=== PATIENT | female | born 1935 | race Caucasian/White ===

== ENCOUNTER 2016-08-23 16:27 | Observation (INO) | payer MEDICARE, BC ==
[2016-08-23] MEDS ORDERED: ASPIRIN 81 MG CHEW PO STA (17:59)
[2016-08-23] MEDS ORDERED: NITROGLYCERIN OINT 1 INCH/GM PACKET TOPICAL STA (17:59)
[2016-08-23 18:27] LABS: Basophils % (A) 1 %; CH 31.8; CHCM 33.5; Eosinophils # (A) 0.1 k/uL (0-0.7); Eosinophils % (A) 3 %; HCT 40.5 % (34.0-46.0); HDW 2.21; HGB 13.8 gm/dL (11.4-16.0); Luc # (Auto) 0.13; Luc % (Auto) 4; Lymphocytes # (A) 1.1 k/uL (1.0-4.8); Lymphocytes % (A) 29 %; MCH 32.4 pg (25.0-35.0); MCHC 33.9 g/dL (31.0-37.0); MCV 95.5 fL (80.0-100.0); Mean Platelet Volume 6.6; Monocytes # (A) 0.2 k/uL (0-1.0); Monocytes % (A) 6 %; Neutrophils # (A) 2.2 k/uL (1.3-7.7); Neutrophils % (A) 58 %; RBC 4.25 m/uL (3.80-5.40); RDW 12.2 % (11.5-15.5); WBC 3.8 k/uL (3.8-10.6); WBC (Perox) 3.96
[2016-08-23 18:40] LABS: ALT 35 U/L (9-52); AST 20 U/L (14-36); Alkaline Phosphatase 70 U/L (38-126); Anion Gap 12 mmol/L; Blood Urea Nitrogen 19 mg/dL (7-17); Carbon Dioxide 26 mmol/L (22-30); Chloride 101 mmol/L (98-107); Glucose 85 mg/dL (74-99); Magnesium 1.9 mg/dL (1.6-2.3); Non-African American GFR(MDRD) >60 (>60 ml/min/1.73 sqM); Sodium 139 mmol/L (137-145); Total Bilirubin 0.9 mg/dL (0.2-1.3); Total Protein 7.8 g/dL (6.3-8.2)
[2016-08-23 18:42] LABS: Creatine Kinase 45 U/L (30-135)
--- NOTE | 2016-08-23 18:46 | XR ---
EXAMINATION TYPE: XR chest 2V DATE OF EXAM: 08/23/2016 6:34 PM COMPARISON: 12/13/2015 HISTORY: Chest pain TECHNIQUE: Frontal and lateral views of the chest are obtained. FINDINGS: Heart and mediastinum are normal. Lungs are clear. Costophrenic angles are clear. There ar e no hilar masses. There is no pleural effusion. There is a hiatal hernia. There are chest leads. IMPRESSION: No active cardiopulmonary disease. Hiatal hernia. No change compared to old exam.
[2016-08-23 18:47] LABS: INR 1.1 (<1.1); Prothrombin Time 10.6 sec (9.0-12.0)
[2016-08-23 18:48] LABS: Partial Thromboplastin Time 18.8 sec (22.0-30.0)
[2016-08-23 18:55] LABS: Creatine Kinase MB <0.2 ng/mL (0.0-2.4); Troponin I <0.012 ng/mL (0.000-0.034)
[2016-08-23] MEDS ORDERED: RX INFO: IV CONTRAST WAS GIVEN 1 EACH MISC MISCELLANE PRN (19:54)
--- NOTE | 2016-08-23 20:53 | ED ---
General Adult HPI - General Chief complaint: Recheck/Abnormal Lab/Rx Stated complaint: rib pain Time Seen by Provider: 08/23/16 17:43 Source: patient Mode of arrival: ambulatory - History of Present Illness Initial comments: Sided chest pain since 10:10 AM today, this is off-and-on pain comes on for a few seconds then it's it goes away denies any fall or any trauma no car accident she denies any shortness of breath denies any any pleuritic component to the chest pain. No nausea no vomiting no cold sweats area denies any fever no chills she is not coughing up any phlegm - Related Data Home Medications Medication Instructions Recorded Confirmed Pantoprazole Sodium [Protonix] 40 mg PO DAILY PRN 11/02/14 08/23/16 Lisinopril-Hctz 20-25 mg 1 tab PO DAILY 08/23/16 08/23/16 [Zestoretic 20-25] Allergies Allergy/AdvReac Type Severity Reaction Status Date / Time Sulfa (Sulfonamide Allergy Unknown Verified 08/23/16 17:47 Antibiotics) Review of Systems ROS Statement: Those systems with pertinent positive or pertinent negative responses have been documented in the HPI. ROS Other: All systems not noted in ROS Statement are negative. Past Medical History Past Medical History: Eye Disorder, GERD/Reflux, Hypertension Additional Past Medical History / Comment(s): ANDREW CATARACTS REMOVED.HIATAL HERNIA, INCONT OF URINE WEARS A PAD,ARTHRITIS,VARICOSE VEINS History of Any Multi-Drug Resistant Organisms: None Reported Past Surgical History: Adenoidectomy, Cholecystectomy, Hysterectomy, Tonsillectomy Additional Past Surgical History / Comment(s): EXC ANDREW CATARACTS. PARTIAL HYST- STILL HAS 1 OVARY.EGD Past Anesthesia/Blood Transfusion Reactions: No Reported Reaction Additional Past Anesthesia/Blood Transfusion Reaction / Comment(s): NEVER HAD HAD TRASFUSIONS Past Psychological History: No Psychological Hx Reported Smoking Status: Never smoker Past Alcohol Use History: None Reported Past Drug Use History: None Reported - Past Family History Father History Unknown: Yes General Exam - General Exam Comments Initial Comments: General: The patient is awake and alert, in no distress, and does not appear acutely ill. Skin: Skin is warm and dry and no rashes or lesions are noted. Eye: Pupils are equal, round and reactive to light, extra-ocular movements are intact; there is normal conjunctiva bilaterally. Ears, nose, mouth and throat: There are moist mucous membranes and no oral lesions. Neck: The neck is supple, there is no tenderness or JVD. Cardiovascular: There is a regular rate and rhythm. No murmur, rub or gallop is appreciated. Skin examination ruled out any shingles Respiratory: To auscultation bilateral, no wheezing no rhonchi no distress respiratory samaniego noticed Gastrointestinal: Soft, non-distended, non-tender abdomen without masses or organomegaly noted. There is no rebound or guarding present. Bowel sounds are unremarkable. Back: There is no tenderness to palpation in the midline. There is no obvious deformity. Musculoskeletal: Normal ROM, no tenderness, There is no pedal edema. There is no calf tenderness or swelling. No cords were appreciated. Neurological: CN II-XII intact, Cranial nerves III through XII are intact. There are no obvious motor or sensory deficits. Coordination appears grossly intact. Speech is normal. Psychiatric: Cooperative, appropriate mood & affect, normal judgment. Course Vital Signs 08/23/16 08/23/16 08/23/16 16:45 17:30 17:35 Temperature 97.1 F L Pulse Rate 73 Respiratory 16 Rate Blood Pressure 143/92 O2 Sat by Pulse 99 88 L 97 Oximetry 08/23/16 08/23/16 18:26 19:47 Temperature Pulse Rate 63 65 Respiratory 16 Rate Blood Pressure 163/72 119/58 O2 Sat by Pulse 100 93 L Oximetry EKG Findings - EKG Comments: EKG Findings:: EKG is normal sinus rhythm ventricular rate is 62 MT interval is 1 H2 QRS duration is 92 QT/QTc is 10/10/1929/436 review of this EKG reveals some T-wave flattening of the leads [address] elevation or ST depression noticed in the other leads Medical Decision Making - Lab Data Result diagrams: 08/23/16 18:20 08/23/16 18:20 Lab Results 08/23/16 08/23/16 08/23/16 Range/Units 18:20 18:20 18:20 WBC 3.8 (3.8-10.6) k/uL RBC 4.25 (3.80-5.40) m/uL Hgb 13.8 (11.4-16.0) gm/dL Hct 40.5 (34.0-46.0) % MCV 95.5 (80.0-100.0) fL MCH 32.4 (25.0-35.0) pg MCHC 33.9 (31.0-37.0) g/dL RDW 12.2 (11.5-15.5) % Plt Count 208 (150-450) k/uL Neutrophils % 58 % Lymphocytes % 29 % Monocytes % 6 % Eosinophils % 3 % Basophils % 1 % Neutrophils # 2.2 (1.3-7.7) k/uL Lymphocytes # 1.1 (1.0-4.8) k/uL Monocytes # 0.2 (0-1.0) k/uL Eosinophils # 0.1 (0-0.7) k/uL Basophils # 0.0 (0-0.2) k/uL PT (9.0-12.0) sec INR (<1.1) APTT (22.0-30.0) sec D-Dimer (<0.60) mg/L FEU Sodium 139 (137-145) mmol/L Potassium 4.0 (3.5-5.1) mmol/L Chloride 101 (98-107) mmol/L Carbon Dioxide 26 (22-30) mmol/L Anion Gap 12 mmol/L BUN 19 H (7-17) mg/dL Creatinine 0.78 (0.52-1.04) mg/dL Est GFR (MDRD) Af Amer >60 (>60 ml/min/1.73 sqM) Est GFR (MDRD) Non-Af >60 (>60 ml/min/1.73 sqM) Glucose 85 (74-99) mg/dL Calcium 10.0 (8.4-10.2) mg/dL Magnesium 1.9 (1.6-2.3) mg/dL Total Bilirubin 0.9 (0.2-1.3) mg/dL AST 20 (14-36) U/L ALT 35 (9-52) U/L Alkaline Phosphatase 70 (38-126) U/L Total Creatine Kinase 45 (30-135) U/L CK-MB (CK-2) <0.2 (0.0-2.4) ng/mL CK-MB (CK-2) Rel Index Troponin I <0.012 (0.000-0.034) ng/mL Total Protein 7.8 (6.3-8.2) g/dL Albumin 4.4 (3.5-5.0) g/dL 08/23/16 Range/Units 18:20 WBC (3.8-10.6) k/uL RBC (3.80-5.40) m/uL Hgb (11.4-16.0) gm/dL Hct (34.0-46.0) % MCV (80.0-100.0) fL MCH (25.0-35.0) pg MCHC (31.0-37.0) g/dL RDW (11.5-15.5) % Plt Count (150-450) k/uL Neutrophils % % Lymphocytes % % Monocytes % % Eosinophils % % Basophils % % Neutrophils # (1.3-7.7) k/uL Lymphocytes # (1.0-4.8) k/uL Monocytes # (0-1.0) k/uL Eosinophils # (0-0.7) k/uL Basophils # (0-0.2) k/uL PT 10.6 (9.0-12.0) sec INR 1.1 (<1.1) APTT 18.8 L (22.0-30.0) sec D-Dimer 0.62 H (<0.60) mg/L FEU Sodium (137-145) mmol/L Potassium (3.5-5.1) mmol/L Chloride (98-107) mmol/L Carbon Dioxide (22-30) mmol/L Anion Gap mmol/L BUN (7-17) mg/dL Creatinine (0.52-1.04) mg/dL Est GFR (MDRD) Af Amer (>60 ml/min/1.73 sqM) Est GFR (MDRD) Non-Af (>60 ml/min/1.73 sqM) Glucose (74-99) mg/dL Calcium (8.4-10.2) mg/dL Magnesium (1.6-2.3) mg/dL Total Bilirubin (0.2-1.3) mg/dL AST (14-36) U/L ALT (9-52) U/L Alkaline Phosphatase (38-126) U/L Total Creatine Kinase (30-135) U/L CK-MB (CK-2) (0.0-2.4) ng/mL CK-MB (CK-2) Rel Index Troponin I (0.000-0.034) ng/mL Total Protein (6.3-8.2) g/dL Albumin (3.5-5.0) g/dL Critical Care Time Total Critical Care Time: 35 Critical Care Time: She came to the chest pain on the left side this is first time ever she is 80 years old abrasion on she has multiple risk factors troponin and EKG chest x- ray and CT chest angiogram to rule out PE is pain-free but for the completeness sake I recommended that we keep her and consult cardiology tomorrow give her Lovenox 1 mg/kg subcu every 12 heparinize her and and consult cardiology I explained to her and her family and she agrees with him a she be admitted to Dr. Lovelace's service Disposition Clinical Impression: Chest pain, Hiatal hernia Disposition: ADMITTED IP TO THIS HOSP Condition: Good
--- NOTE | 2016-08-23 21:19 | CT ---
EXAMINATION TYPE: CT angio chest DATE OF EXAM: 08/23/2016 9:06 PM COMPARISON: NONE HISTORY: Left sided lower chest pain with fatigue CT DLP: 339.5 mGycm Automated exposure control for dose reduction was used. CONTRAST: CTA scan of the thorax is performed with IV Contrast, patient injected with 100 mL of Omnipaque 350, pulmonary embolism protocol. . There are 3-D post processed images. FINDINGS: The lungs are clear of infiltrate. There is no pleural effusion. There is a hiatal hernia. Heart is s lightly enlarged. There is no pericardial effusion. There is normal contrast opacification of the pulmonary arteries. There are no filling defects. Thora cic aorta shows no evidence of aneurysm or dissection. Thoracic aorta is atheromatous. The bony thora x is intact. IMPRESSION: NO EVIDENCE OF PULMONARY EMBOLISM. LARGE HIATAL HERNIA. CARDIOMEGALY.
[2016-08-23] MEDS ORDERED: MORPHINE SULFATE 2 MG/ML SYRINGE IVP PRN (22:33)
[2016-08-23] MEDS ORDERED: HEPARIN SODIUM,PORCINE 5,000 UNIT/ML 1 ML VIAL IV ONE (22:33)
[2016-08-23] MEDS ORDERED: NITROGLYCERIN SL TABS 0.4 MG TAB SUBLINGUAL PRN (22:33)
[2016-08-23] MEDS ORDERED: PANTOPRAZOLE 40 MG TABLET PO PRN (22:37)
[2016-08-23] MEDS ORDERED: HEPARIN SODIUM,PORCINE/D5W PMX 25,000 UNIT in DEXTROSE/WATER 1 500ML.BAG IV SCH (22:45)
[2016-08-24 01:02] LABS: Creatine Kinase 39 U/L (30-135)
[2016-08-24 01:15] LABS: Creatine Kinase MB 0.5 ng/mL (0.0-2.4); Troponin I <0.012 ng/mL (0.000-0.034)
[2016-08-24 05:26] VITALS: RESP 16
[2016-08-24 07:15] LABS: Cholesterol 183 mg/dL (<200); HDL Cholesterol 62 mg/dL (40-60); Triglycerides 86 mg/dL (<150)
[2016-08-24 07:42] LABS: Creatine Kinase 56 U/L (30-135)
[2016-08-24 07:54] LABS: Creatine Kinase MB 0.7 ng/mL (0.0-2.4); Troponin I <0.012 ng/mL (0.000-0.034)
[2016-08-24 08:02] VITALS: TEMP 97.8
--- NOTE | 2016-08-24 08:50 | P.CRDCN ---
History of Present Illness Consult date: 08/24/16 History of present illness: This is a pleasant 80-year-old female patient with a past medical history significant for hypertension who is in good shape for her age and without any other comorbidities, presented to the emergency room complaining of chest discomfort. She was sitting in the [employer] yesterday when suddenly started experiencing chest discomfort, at 1 small spot on the left side of the chest, without any radiation to the arm or neck or shoulders and without any associated symptoms of shortness of breath, dizziness or lightheadedness, or sweating. That episode of chest discomfort lasted for only 3 seconds and since then she has been experiencing intermittent episodes of chest discomfort with same nature and each one lasts only for a few seconds. The cardiac workup of EKG and enzymes came in to be unremarkable. The patient is not aware of any history of coronary artery disease and never seen any head housekeeper in the past. I recommended to get the patient up and around. If she is asymptomatic she can be discharged home. Past Medical History Past Medical History: Eye Disorder, GERD/Reflux, Hypertension Additional Past Medical History / Comment(s): ANDREW CATARACTS REMOVED.HIATAL HERNIA, INCONT OF URINE WEARS A PAD,ARTHRITIS,VARICOSE VEINS History of Any Multi-Drug Resistant Organisms: None Reported Past Surgical History: Adenoidectomy, Cholecystectomy, Hysterectomy, Tonsillectomy Additional Past Surgical History / Comment(s): EXC ANDREW CATARACTS. PARTIAL HYST- STILL HAS 1 OVARY.EGD Past Anesthesia/Blood Transfusion Reactions: No Reported Reaction Additional Past Anesthesia/Blood Transfusion Reaction / Comment(s): NEVER HAD HAD TRASFUSIONS Past Psychological History: No Psychological Hx Reported Smoking Status: Never smoker Past Alcohol Use History: None Reported Past Drug Use History: None Reported - Past Family History Father History Unknown: Yes Family Medical History: Cancer Mother Additional Family Medical History / Comment(s): mother was in good health and dies at 93 Brother(s) Additional Family Medical History / Comment(s): kidney removal Daughter(s) Family Medical History: No Reported History Son(s) Family Medical History: Asthma, Sleep Apnea/CPAP/BIPAP Medications and Allergies Home Medications Medication Instructions Recorded Confirmed Type Pantoprazole Sodium [Protonix] 40 mg PO DAILY PRN 11/02/14 08/23/16 History Lisinopril-Hctz 20-25 mg 1 tab PO DAILY 08/23/16 08/23/16 History [Zestoretic 20-25] Allergies Allergy/AdvReac Type Severity Reaction Status Date / Time Sulfa (Sulfonamide Allergy Unknown Verified 08/23/16 17:47 Antibiotics) Physical Exam Vitals: Vital Signs Temp Pulse Pulse Pulse Pulse Resp BP 08/24/16 07:59 97.8 F 60 16 08/24/16 04:00 98 F 60 60 16 08/24/16 00:00 97.6 F 60 18 08/23/16 23:00 69 16 145/64 BP BP Pulse Ox 08/24/16 07:59 118/58 96 08/24/16 04:00 121/58 96 08/24/16 00:00 126/68 98 08/23/16 23:00 99 Intake and Output 08/23/16 08/24/16 08/24/16 22:59 06:59 14:59 Other: Voiding Method Toilet Incontinent Weight 81.647 kg - Constitutional General appearance: no acute distress - Respiratory Respiratory: bilateral: CTA - Cardiovascular Rhythm: regular Heart sounds: normal: S1, S2 Results 08/23/16 18:20 08/23/16 18:20 Cardiac Enzymes 08/24/16 08/24/16 Range/Units 00:22 06:30 CK-MB (CK-2) 0.5 0.7 (0.0-2.4) ng/mL Troponin I <0.012 <0.012 (0.000-0.034) ng/mL Coagulation 08/24/16 Range/Units 06:30 APTT 52.4 H (22.0-30.0) sec Lipids 08/24/16 Range/Units 06:30 Triglycerides 86 (<150) mg/dL Cholesterol 183 (<200) mg/dL HDL Cholesterol 62 H (40-60) mg/dL Current Medications Generic Name Dose Route Start Last Admin Trade Name Freq PRN Reason Stop Dose Admin Aspirin 325 mg 08/24/16 09:00 Aspirin PO DAILY [facility] Lisinopril/HCTZ 1 each 08/24/16 09:00 Zestoretic 20-25 PO DAILY [facility] Heparin Sodium/Dextrose 25,000 500 mls @ 19.59 mls/hr 08/23/16 22:45 23:05 unit/ IV Solution IV 12 units/kg/hr .Q24H DIONICIO 19.59 mls/hr Protocol Administration 12 UNITS/KG/HR Miscellaneous Information 1 each 08/23/16 19:54 Rx Info: Iv Contrast Was Given MISCELLANE 08/25/16 19:54 DAILY PRN Per Protocol Morphine Sulfate 2 mg 08/23/16 22:33 Morphine Sulfate (Inj) IVP Q5M PRN Chest Pain Nitroglycerin 0.4 mg 08/23/16 22:33 Nitrostat SUBLINGUAL Q5M PRN Chest Pain Pantoprazole Sodium 40 mg 08/23/16 22:37 Protonix PO DAILY PRN Heartburn Intake and Output 08/23/16 08/24/16 08/24/16 22:59 06:59 14:59 Other: Voiding Method Toilet Incontinent Weight 81.647 kg Assessment and Plan Plan: Assessment #1 atypical chest discomfort #2 systemic hypertension Plan #1 getting the patient up and around #2 the patient can be discharged home
[2016-08-24] MEDS ORDERED: LISINOPRIL-HCTZ 20-25 MG 1 EACH TAB PO SCH (09:00)
[2016-08-24] MEDS ORDERED: ASPIRIN 325 MG TAB PO SCH (09:00)
[2016-08-24 11:43] VITALS: BP 143/52; PULSE 60
--- NOTE | 2016-08-24 12:45 | P.HPIM ---
History of Present Illness H&P Date: 08/24/16 Chief Complaint: Chest pain This is a 80-year-old female with a known past medical history of hypertension and GERD. Patient reports she was at [employer] and started having some pains on the left sided her ribs. Pains were persistent off-and-on throughout the day. They're very sharp pains and major catch her breath. She denies any shortness of breath. She denies any cough with any fevers chills or sweats. Denies any heartburn asked reflux and any heavy lifting. She denies any nausea or vomiting. Denies any bowel movement changes or urinary symptoms. Denies any fevers chills or sweats. She was seen evaluated by cardiology they have ordered a cleared her for discharge we'll follow-up with her in the outpatient setting troponins were negative 3 sets chest x-ray showed no acute changes and EKG had showed a normal sinus rhythm. Patient's CTA of the chest that showed no evidence of pulmonary embolism. Did reveal a large hiatal hernia and cardiomegaly. Patient does report she is on Protonix. Her acid reflux like symptoms had shown improvement and she was taught trying to taper off the PPI. Review of Systems Please refer to HPI otherwise unremarkable Past Medical History Past Medical History: Eye Disorder, GERD/Reflux, Hypertension Additional Past Medical History / Comment(s): ANDREW CATARACTS REMOVED.HIATAL HERNIA, INCONT OF URINE WEARS A PAD,ARTHRITIS,VARICOSE VEINS History of Any Multi-Drug Resistant Organisms: None Reported Past Surgical History: Adenoidectomy, Cholecystectomy, Hysterectomy, Tonsillectomy Additional Past Surgical History / Comment(s): EXC ANDREW CATARACTS. PARTIAL HYST- STILL HAS 1 OVARY.EGD Past Anesthesia/Blood Transfusion Reactions: No Reported Reaction Additional Past Anesthesia/Blood Transfusion Reaction / Comment(s): NEVER HAD HAD TRASFUSIONS Past Psychological History: No Psychological Hx Reported Smoking Status: Never smoker Past Alcohol Use History: None Reported Past Drug Use History: None Reported - Past Family History Father History Unknown: Yes Family Medical History: Cancer Mother Additional Family Medical History / Comment(s): mother was in good health and dies at 93 Brother(s) Additional Family Medical History / Comment(s): kidney removal Daughter(s) Family Medical History: No Reported History Son(s) Family Medical History: Asthma, Sleep Apnea/CPAP/BIPAP Medications and Allergies Home Medications Medication Instructions Recorded Confirmed Type Pantoprazole Sodium [Protonix] 40 mg PO DAILY PRN 11/02/14 08/23/16 History Lisinopril-Hctz 20-25 mg 1 tab PO DAILY 08/23/16 08/23/16 History [Zestoretic 20-25] Allergies Allergy/AdvReac Type Severity Reaction Status Date / Time Sulfa (Sulfonamide Allergy Unknown Verified 08/23/16 17:47 Antibiotics) Physical Exam Vitals: Vital Signs Temp Pulse Pulse Pulse Pulse Resp BP 08/24/16 11:42 97.8 F 60 16 08/24/16 08:00 72 16 08/24/16 07:59 97.8 F 60 16 08/24/16 04:00 98 F 60 60 16 08/24/16 00:00 97.6 F 60 18 08/23/16 23:00 69 16 145/64 BP BP Pulse Ox 08/24/16 11:42 143/52 96 08/24/16 08:00 08/24/16 07:59 118/58 96 08/24/16 04:00 121/58 96 08/24/16 00:00 126/68 98 08/23/16 23:00 99 Intake and Output 08/23/16 08/24/16 08/24/16 22:59 06:59 14:59 Other: Voiding Method Toilet Toilet Incontinent # Voids 1 Weight 81.647 kg Head normocephalic Neck supple Lungs clear to auscultation bilaterally no wheezing or crackles Heart regular rate and rhythm S1-S2, no rub or gallop Abdomen is soft nontender nondistended positive bowel sounds no hepatosplenomegaly Extremities no edema Neuro alert and orientated to 3 Results CBC & Chem 7: 08/23/16 18:20 08/23/16 18:20 Labs: Abnormal Lab Results - Last 24 Hours (Table) 08/24/16 08/24/16 Range/Units 06:30 06:30 APTT 52.4 H (22.0-30.0) sec LDL Cholesterol, Calc 104 H (0-99) mg/dL HDL Cholesterol 62 H (40-60) mg/dL Thrombosis Risk Factor Assmnt - Choose All That Apply Any of the Below Risk Factors Present?: Yes Each Factor Represents 1 point: Obesity (BMI >25) Other Risk Factors: Yes Each Risk Factor Represents 3 Points: Age 75 years or older Other congenital or acquired thrombophilia - If yes, enter type in comment: No Thrombosis Risk Factor Assessment Total Risk Factor Score: 4 Thrombosis Risk Factor Assessment Level: Moderate Risk Assessment and Plan Plan: 1. Atypical chest pain: Troponins negative 3 sets. EKG showing a normal sinus rhythm. Chest x-ray shows no acute changes. CTA was negative for a pulmonary embolism did show a large hiatal hernia and cardiomegaly. Patient was seen evaluated by cardiology and they have cleared her for discharge we'll follow-up with her in the outpatient setting 2. Known history of GERD and hiatal hernia. Last EGD was about 2 years ago and patient reports no cigarette findings 3. Essential hypertension continue with her blood pressure pills Anticipate discharge later this afternoon if tolerating diet and getting up and ambulating Time with Patient: Greater than 30 (Greater than 50% of the total time spent in counseling and coordination of care.I performed an examination of the patient and discussed their management with the physician Director Of Rooms. I have reviewed the Physician Director Of Rooms's notes and agree with the documented findings and plan of care)
--- NOTE | 2016-08-24 14:07 | P.DS ---
Providers Date of admission: 08/23/16 22:33 Expected date of discharge: 08/24/16 Attending physician: Anita Lovelace Consults: Dr. Bauman Primary care physician: Jill Archibald Hospital Course: Discharge diagnosis 1. Atypical chest pain: Troponins negative 3 sets. EKG showing a normal sinus rhythm. Chest x-ray shows no acute changes. CTA was negative for a pulmonary embolism did show a large hiatal hernia and cardiomegaly. Patient was seen evaluated by cardiology and they have cleared her for discharge we'll follow-up with her in the outpatient setting 2. Known history of GERD and hiatal hernia. Last EGD was about 2 years ago and patient reports no cigarette findings 3. Essential hypertension continue with her blood pressure pills Hospital course This is a 80-year-old female with a known past medical history of hypertension and GERD. Patient reports she was at [employer] and started having some pains on the left sided her ribs. Pains were persistent off-and-on throughout the day. They're very sharp pains and major catch her breath. She denies any shortness of breath. She denies any cough with any fevers chills or sweats. Denies any heartburn asked reflux and any heavy lifting. She denies any nausea or vomiting. Denies any bowel movement changes or urinary symptoms. Denies any fevers chills or sweats. She was seen evaluated by cardiology they have ordered a cleared her for discharge we'll follow-up with her in the outpatient setting troponins were negative 3 sets chest x-ray showed no acute changes and EKG had showed a normal sinus rhythm. Patient's CTA of the chest that showed no evidence of pulmonary embolism. Did reveal a large hiatal hernia and cardiomegaly. Patient does report she is on Protonix. Patient's symptoms resolved. She tolerated diet and has been up and ambulating without any symptoms. Cardiology had cleared her for discharge. They will follow up with her in the office in 2 weeks. UT was ruled out during this hospitalization. Please refer to chart for any further details. Patient Condition at Discharge: Stable Plan - Discharge Summary Discharge Medication List Pantoprazole Sodium [Protonix] 40 mg PO DAILY PRN 11/02/14 [History] Lisinopril-Hctz 20-25 mg [Zestoretic 20-25] 1 tab PO DAILY 08/23/16 [History] Follow up Appointment(s)/Referral(s): Hans Og MD [STAFF PHYSICIAN] - 2 Weeks (September 07, 3:45) Jill Archibald DO [Primary Care Provider] - 1 Week Patient Instructions/Handouts: Chest Pain (GEN) Activity/Diet/Wound Care/Special Instructions: low fat/low salt diet activity as tolerated Discharge Disposition: HOME SELF-CARE
== END 2016-08-24 14:31 | disposition home or self-care (01) ==
LOC: EC 16:27 → 3OBS 22:33
PROVIDERS: ADMIT Internal Medicine; ATTEND Internal Medicine
DX: R07.81 Pleurodynia (principal); I51.7 Cardiomegaly; K21.9 Gastro-esophageal reflux disease without esophagitis; K44.9 Diaphragmatic hernia without obstruction or gangrene; I10 Essential (primary) hypertension; R32 Unspecified urinary incontinence; M19.90 Unspecified osteoarthritis, unspecified site; Z79.899 Other long term (current) drug therapy; Z88.2 Allergy status to sulfonamides
CPT/HCPCS: 99291 ×2; 96365; 96376 ×2; 36415; 93005; 85379; 80061; 80053; 82550 ×2; 82553 ×2; 83735; 84484 ×2; 85025; 85610; 85730 ×2; 71020; 71275; G0378 ×2; J1644 ×2; Q9967; 96366

== ENCOUNTER → 2017-01-26 | Outpatient (CLI) | payer MEDICARE, BC ==
--- NOTE | 2017-01-26 16:29 | US ---
EXAMINATION TYPE: US venous doppler duplex LE RT DATE OF EXAM: 01/26/2017 2:21 PM COMPARISON: NONE CLINICAL HISTORY: Pain in leg M79.606. SIDE PERFORMED: Right TECHNIQUE: The lower extremity deep venous system is examined utilizing real time linear array sonog keegan with graded compression, doppler sonography and color-flow sonography. VESSELS IMAGED: External Iliac Vein (EIV) Common Femoral Vein Deep Femoral Vein Greater Saphenous Vein * Femoral Vein Popliteal Vein Proximal Calf Veins (* superficial vessels) scanned area of concern, right inner knee into lower leg, red area. There is thrombosed superficial v essels that are not compressible and show no flow. Right Leg: Negative for DVT No popliteal fossa lesion was seen. IMPRESSION: 1. THIS EXAMINATION IS NEGATIVE FOR DVT WITHIN THE RIGHT LEG. 2. THIS EXAMINATION IS POSITIVE FOR SUPERFICIAL THROMBOPHLEBITIS.
== END | disposition home or self-care (01) ==
LOC: RADUSWWP 14:17
PROVIDERS: ATTEND Family Medicine
DX: I80.01 Phlebitis and thrombophlebitis of superficial vessels of right lower extremity (principal)

== ENCOUNTER 2019-08-19 17:41 | Inpatient (IN) | payer MEDICARE, BC ==
[2019-08-19] MEDS ORDERED: SODIUM CHLORIDE 0.9% 1,000 ML IV STA ×3 (18:03→20:32)
--- NOTE | 2019-08-19 18:09 | ED ---
Nausea/Vomiting/Diarrhea HPI - General Chief complaint: Nausea/Vomiting/Diarrhea Stated complaint: Dehydration Time Seen by Provider: 08/19/19 17:46 Source: patient, EMS, RN notes reviewed Mode of arrival: EMS Limitations: no limitations - History of Present Illness Initial comments: This 83-year-old female who presents with the onset of nausea vomiting diarrhea at about 1:00 this morning and having persistent diarrhea since that she feels very weak and tired she is noted have a blood pressure 81/67 upon arrival here. No overt fevers chills sweats chest pain or other symptoms MD complaint: nausea, vomiting, diarrhea, other - Related Data Home Medications Medication Instructions Recorded Confirmed Pantoprazole Sodium [Protonix] 40 mg PO DAILY PRN 11/02/14 08/23/16 Lisinopril-Hctz 20-25 mg 1 tab PO DAILY 08/23/16 08/23/16 [Zestoretic 20-25] Allergies Allergy/AdvReac Type Severity Reaction Status Date / Time Sulfa (Sulfonamide Allergy Unknown Verified 08/19/19 17:48 Antibiotics) Review of Systems ROS Statement: Those systems with pertinent positive or pertinent negative responses have been documented in the HPI. ROS Other: All systems not noted in ROS Statement are negative. Past Medical History Past Medical History: Atrial Fibrillation, Eye Disorder, GERD/Reflux, Hypertension Additional Past Medical History / Comment(s): ANDREW CATARACTS REMOVED.HIATAL HERNIA, INCONT OF URINE WEARS A PAD,ARTHRITIS,VARICOSE VEINS History of Any Multi-Drug Resistant Organisms: None Reported Past Surgical History: Adenoidectomy, Cholecystectomy, Hysterectomy, Tonsillectomy Additional Past Surgical History / Comment(s): EXC ANDREW CATARACTS. PARTIAL HYST- STILL HAS 1 OVARY.EGD Past Anesthesia/Blood Transfusion Reactions: No Reported Reaction Additional Past Anesthesia/Blood Transfusion Reaction / Comment(s): NEVER HAD HAD TRASFUSIONS Past Psychological History: No Psychological Hx Reported Smoking Status: Never smoker Past Alcohol Use History: None Reported Past Drug Use History: None Reported - Past Family History Father History Unknown: Yes Family Medical History: Cancer Mother Additional Family Medical History / Comment(s): mother was in good health and dies at 93 Brother(s) Additional Family Medical History / Comment(s): kidney removal Daughter(s) Family Medical History: No Reported History Son(s) Family Medical History: Asthma, Sleep Apnea/CPAP/BIPAP General Exam - General Exam Comments Initial Comments: Is a well-developed sec appearing female who is awake alert but somewhat lethargic she is oriented x3 Limitations: no limitations General appearance: alert, in no apparent distress Head exam: Present: atraumatic, normocephalic, normal inspection Eye exam: Present: normal appearance, PERRL, EOMI. Absent: scleral icterus, conjunctival injection, periorbital swelling ENT exam: Present: mucous membranes dry Neck exam: Present: normal inspection. Absent: tenderness, meningismus, lymphadenopathy Respiratory exam: Present: normal lung sounds bilaterally. Absent: respiratory distress, wheezes, rales, rhonchi, stridor Cardiovascular Exam: Present: regular rate, normal rhythm, normal heart sounds. Absent: systolic murmur, diastolic murmur, rubs, gallop, clicks GI/Abdominal exam: Present: soft, normal bowel sounds. Absent: distended, tenderness, guarding, rebound, rigid Extremities exam: Present: normal inspection, full ROM, normal capillary refill. Absent: tenderness, pedal edema, joint swelling, calf tenderness Back exam: Present: normal inspection Neurological exam: Present: alert, oriented X3, CN II-XII intact Psychiatric exam: Present: normal affect, normal mood Skin exam: Present: warm, dry, intact, normal color. Absent: rash Course Vital Signs 08/19/19 08/19/19 08/19/19 17:44 19:11 20:00 Temperature 98.3 F Pulse Rate 100 Respiratory 16 16 16 Rate Blood Pressure 75/62 73/49 85/40 O2 Sat by Pulse 96 Oximetry - Reevaluation(s) Reevaluation #1: 08/19/19 20:52 Evaluation patient reveals a resting comfortably lower blood pressure has remained somewhat low. She is getting IV fluids Medical Decision Making - Medical Decision Making I did discuss findings with the patient family member who is present. Patient does present with gastrointestinal pathology in addition to dehydration acute kidney injury and evidence of UTI. Patient will be placed on IV fluids and IV antibiotics I did discuss case Dr. Trevino's group patient will be admitted - Lab Data Result diagrams: 08/19/19 18:12 08/19/19 18:12 Lab Results 08/19/19 08/19/19 08/19/19 Range/Units 18:12 18:12 19:00 WBC 17.5 H (3.8-10.6) k/uL RBC 3.86 (3.80-5.40) m/uL Hgb 12.5 (11.4-16.0) gm/dL Hct 37.5 (34.0-46.0) % MCV 97.0 (80.0-100.0) fL MCH 32.3 (25.0-35.0) pg MCHC 33.3 (31.0-37.0) g/dL RDW 12.2 (11.5-15.5) % Plt Count 152 (150-450) k/uL Neutrophils % (Manual) 80 % Band Neutrophils % 14 % Lymphocytes % (Manual) 3 % Metamyelocytes % 4 % Neutrophils # (Manual) 16.40 H (1.3-7.7) k/uL Lymphocytes # (Manual) 0.53 L (1.0-4.8) k/uL Metamyelocytes # (Man) 0.70 H (0) k/uL Nucleated RBCs 0 (0-0) /100 WBC Manual Slide Review Performed Toxic Vacuolation Present RBC Morphology Normal Sodium 135 L (137-145) mmol/L Potassium 3.7 (3.5-5.1) mmol/L Chloride 102 (98-107) mmol/L Carbon Dioxide 20 L (22-30) mmol/L Anion Gap 13 mmol/L BUN 37 H (7-17) mg/dL Creatinine 1.88 H (0.52-1.04) mg/dL Est GFR (CKD-EPI)AfAm 28 (>60 ml/min/1.73 sqM) Est GFR (CKD-EPI)NonAf 24 (>60 ml/min/1.73 sqM) Glucose 84 (74-99) mg/dL Calcium 9.1 (8.4-10.2) mg/dL Magnesium 1.6 (1.6-2.3) mg/dL Total Bilirubin 1.0 (0.2-1.3) mg/dL AST 48 H (14-36) U/L ALT 19 (4-34) U/L Alkaline Phosphatase 70 (38-126) U/L Total Protein 6.7 (6.3-8.2) g/dL Albumin 3.5 (3.5-5.0) g/dL Lipase 47 (23-300) U/L Urine Color Yellow Urine Appearance Cloudy H (Clear) Urine pH 6.0 (5.0-8.0) Ur Specific Edison 1.011 (1.001-1.035) Urine Protein 1+ H (Negative) Urine Glucose (UA) Negative (Negative) Urine Ketones Negative (Negative) Urine Blood Moderate H (Negative) Urine Nitrite Negative (Negative) Urine Bilirubin Negative (Negative) Urine Urobilinogen <2.0 (<2.0) mg/dL Ur Leukocyte Esterase Large H (Negative) Urine RBC 11 H (0-5) /hpf Urine WBC 84 H (0-5) /hpf Urine WBC Clumps Few H (None) /hpf Ur Squamous Epith Cells 3 (0-4) /hpf Amorphous Sediment Few H (None) /hpf Urine Bacteria Moderate H (None) /hpf Hyaline Casts 6 H (0-2) /lpf Urine Mucus Occasional H (None) /hpf - EKG Data -: EKG Interpreted by Me (Atrial fibrillation rate 95 QRS 84 QT since QTC 324/407) - Radiology Data Radiology results: report reviewed (I did review the imaging and report no acute findings.), image reviewed Critical Care Time Critical Care Time: Yes Critical Care Time: 35 minutes critical care time which includes initial presentation with history physical labs x-rays several reevaluation the patient response to therapy discussed with patient family regarding findings discussed with the main physici an review of old charting was available admission orders and documentation of the above Disposition Clinical Impression: Gastroenteritis, Acute kidney injury, Dehydration, Urinary tract infection, Hypotensive episode Disposition: ADMITTED IP TO THIS [facility] Condition: Fair Referrals: Jill Archibald DO [Primary Care Provider] - 1-2 days
[2019-08-19 18:25] LABS: HCT 37.5 % (34.0-46.0); HGB 12.5 gm/dL (11.4-16.0); MCH 32.3 pg (25.0-35.0); MCHC 33.3 g/dL (31.0-37.0); Mean Platelet Volume 8.1; Platelet Count 152 k/uL (150-450); RBC 3.86 m/uL (3.80-5.40); RDW 12.2 % (11.5-15.5); WBC 17.5 k/uL (3.8-10.6)
[2019-08-19 18:37] LABS: Albumin 3.5 g/dL (3.5-5.0); Calcium 9.1 mg/dL (8.4-10.2); Magnesium 1.6 mg/dL (1.6-2.3); Potassium 3.7 mmol/L (3.5-5.1); Total Protein 6.7 g/dL (6.3-8.2)
[2019-08-19 18:55] LABS: Band Neutrophils % 14 %; Lymphocytes # (M) 0.53 k/uL (1.0-4.8); Metamyelocytes % 4 %; Neutrophils % (M) 80 %; Nucleated Red Blood Cells 0 /100 WBC (0-0); Total Cells Counted 200; Toxic Vacuolation Present
--- NOTE | 2019-08-19 18:57 | XR ---
EXAMINATION TYPE: XR KUB DATE OF EXAM: 08/19/2019 COMPARISON: NONE HISTORY: Pain TECHNIQUE: Single view supine FINDINGS: Bowel gas pattern is normal. There is no sign of intestinal obstruction or pneumoperitoneum . Fecal pattern is normal. There are large calcifications over the lower pole left kidney. There is s mall calcification over lower pole right kidney. There are numerous phleboliths in the pelvis. There is thoracolumbar levoscoliosis. IMPRESSION: Nonacute abdomen. Multiple renal calculi mainly on the left side.
[2019-08-19 19:53] LABS: Amorphous Sediment,Urine Few /hpf; Appearance,Urine Cloudy (Clear); Bacteria,Urine Moderate /hpf; Bilirubin,Urine Negative (Negative); Blood,Urine Moderate (Negative); Color,Urine Yellow; Glucose,Urine (UA) Negative (Negative); Hyaline Casts,Urine 6 /lpf (0-2); Ketones,Urine Negative (Negative); Leukocyte Esterase,Urine Large (Negative); Mucus,Urine Occasional /hpf; Nitrite,Urine Negative (Negative); Protein,Urine 1+ (Negative); RBC,Urine 11 /hpf (0-5); Specific Gravity,Urine 1.011 (1.001-1.035); Squamous Epithelial Cell,Urine 3 /hpf (0-4); Urobilinogen,Urine <2.0 mg/dL (<2.0); WBC,Urine 84 /hpf (0-5)
[2019-08-19] MEDS ORDERED: SODIUM CHLORIDE 0.9% 500 ML 500 ML IV ONE (20:06)
[2019-08-19] MEDS ORDERED: cefTRIAXone IN SWFI 1,000 MG/10 ML SYRINGE IVP STA (20:29)
[2019-08-19] MEDS ORDERED: ACETAMINOPHEN TAB 325 MG TAB PO PRN (20:55)
[2019-08-19] MEDS ORDERED: NALOXONE 0.4 MG/ML 1 ML VIAL IV PRN (20:55)
[2019-08-19] MEDS ORDERED: ONDANSETRON 4 MG/2 ML VIAL IVP PRN (20:57)
[2019-08-19] MEDS: SODIUM CHLORIDE 0.9% 1,000 ML IV SCH (22:48)
[2019-08-20] MEDS: PANTOPRAZOLE 40 MG/10 ML VIAL IV SCH (08:13)
[2019-08-20] MEDS: SODIUM CHLORIDE 0.9% 1,000 ML IV SCH ×2 (08:14→17:11)
[2019-08-20 11:49] LABS: Calcium 7.9 mg/dL (8.4-10.2); Potassium 4.2 mmol/L (3.5-5.1)
[2019-08-20 13:22] LABS: HCT 36.2 % (34.0-46.0); HGB 11.8 gm/dL (11.4-16.0); Hypochromasia Slight; MCH 32.6 pg (25.0-35.0); MCHC 32.6 g/dL (31.0-37.0); MCV 100.1 fL (80.0-100.0); Mean Platelet Volume 9.6; Platelet Count 111 k/uL (150-450); RBC 3.62 m/uL (3.80-5.40); RDW 12.1 % (11.5-15.5); WBC 17.1 k/uL (3.8-10.6)
[2019-08-20 14:50] LABS: Band Neutrophils % 2 %; Lymphocytes # (M) 0.68 k/uL (1.0-4.8); Metamyelocytes # (M) 0.17 k/uL (0); Metamyelocytes % 1 %; Monocytes # (M) 0.17 k/uL (0-1.0); Neutrophils % (M) 92 %; Nucleated Red Blood Cells 0 /100 WBC (0-0); Total Cells Counted 200
--- NOTE | 2019-08-20 16:17 | P.HPIM ---
History of Present Illness H&P Date: 08/20/19 Chief Complaint: nausea/vomiting/diarrhea 83-year-old female with history of hypertension, gastroesophageal reflux disease and atrial fibrillation, who presents with the onset of nausea vomiting diarrhea at about 1:00 this morning and having persistent diarrhea since that she feels very weak and tired she is noted have a blood pressure 81/67 upon arrival here. No overt fevers chills sweats chest pain or other symptoms; patient is somewhat confused and not able to provide a detailed history so most of the history is obtained from records Workup in ED with an EKG showing atrial fibrillation; lab work shows a UA positive for blood and leukoesterase with moderate amount of bacteria; chemical profile shows an elevated creatinine of 1.88; sodium at 135 and white blood co unt elevated at 17.5; patient is admitted to the hospital for further treatment with IV antibiotics and IV fluid hydration Review of Systems REVIEW OF SYSTEMS: CONSTITUTIONAL: No fever, no malaise, no fatigue. HEENT: No recent visual problems or hearing problems. Denied any sore throat. CARDIOVASCULAR: No chest pain, orthopnea, PND, no palpitations, no syncope. PULMONARY: No shortness of breath, no cough, no hemoptysis. GASTROINTESTINAL: nausea, vomiting, diarrhea. NEUROLOGICAL: No headaches, no weakness, no numbness. HEMATOLOGICAL: Denies any bleeding or petechiae. GENITOURINARY: Denies any burning micturition, frequency, or urgency. MUSCULOSKELETAL/RHEUMATOLOGICAL: Denies any joint pain, swelling, or any muscle pain. ENDOCRINE: Denies any polyuria or polydipsia. The rest of the 14-point review of systems is negative. Past Medical History Past Medical History: Atrial Fibrillation, Eye Disorder, GERD/Reflux, Hypertension Additional Past Medical History / Comment(s): ANDREW CATARACTS REMOVED.HIATAL HERNIA, INCONT OF URINE WEARS A PAD,ARTHRITIS,VARICOSE VEINS History of Any Multi-Drug Resistant Organisms: None Reported Past Surgical History: Adenoidectomy, Cholecystectomy, Hysterectomy, Tonsillec arcadio Additional Past Surgical History / Comment(s): EXC ANDREW CATARACTS. PARTIAL HYST- STILL HAS 1 OVARY.EGD Past Anesthesia/Blood Transfusion Reactions: No Reported Reaction Additional Past Anesthesia/Blood Transfusion Reaction / Comment(s): NEVER HAD HAD TRASFUSIONS Past Psychological History: No Psychological Hx Reported Smoking Status: Never smoker Past Alcohol Use History: None Reported Past Drug Use History: None Reported - Past Family History Father History Unknown: Yes Family Medical History: Cancer Mother Additional Family Medical History / Comment(s): mother was in good health and dies at 93 Brother(s) Additional Family Medical History / Comment(s): kidney removal Daughter(s) Family Medical History: No Reported History Son(s) Family Medical History: Asthma, Sleep Apnea/CPAP/BIPAP Medications and Allergies Home Medications Medication Instructions Recorded Confirmed Type No Known Home Medications 08/19/19 08/19/19 History Allergies Allergy/AdvReac Type Severity Reaction Status Date / Time Sulfa (Sulfonamide Allergy Unknown Verified 08/19/19 21:47 Antibiotics) Physical Exam Vitals: Vital Signs Temp Pulse Pulse Resp BP BP Pulse Ox 08/20/19 07:00 98.2 F 110 H 17 96/51 94 L 08/20/19 02:25 98/70 08/20/19 02:10 72/48 08/20/19 01:15 97.5 F L 76 16 62/25 92 L 08/19/19 22:38 98.2 F 101 H 16 80/49 93 L 08/19/19 21:56 98.2 F 68 18 80/52 97 08/19/19 21:00 61 16 90/54 08/19/19 20:00 16 85/40 08/19/19 19:11 16 73/49 08/19/19 17:44 98.3 F 100 16 75/62 96 Intake and Output 08/19/19 08/20/19 08/20/19 22:59 06:59 14:59 Intake Total 2500 590 590 Balance 2500 590 590 Intake: Amount of Fluid Infused ( 2500 ml) Oral 590 590 Other: Voiding Method Bedpan # Voids 1 # Bowel Movements 1 Weight 73.5 kg - Constitutional General appearance: Present: average body habitus, cooperative, no acute distress - EENT Eyes: Present: anicteric sclerae, EOMI, PERRLA, normal appearance ENT: Present: hearing grossly normal, normal oropharynx Ears: bilateral: normal - Neck Neck: Present: normal ROM. Absent: lymphadenopathy, rigidity, thyromegaly Carotids: negative: bruit present Thyroid: bilateral: normal size, negative: enlarged, nodule - Respiratory Respiratory: bilateral: CTA, negative: rales, rhonchi, wheezing - Cardiovascular Rhythm: regular Heart sounds: normal: S1, S2 Abnormal Heart Sounds: Absent: systolic murmur, diastolic murmur - Gastrointestinal General gastrointestinal: Present: normal bowel sounds, soft. Absent: distended, organomegaly, tenderness - Genitourinary Genitourinary Comment(s): deferred - Integumentary Integumentary: Present: normal turgor. Absent: jaundiced, rash, ulcer - Neurologic Neurologic: Present: CNII-XII intact. Absent: focal deficits - Musculoskeletal Musculoskeletal: Present: gait normal, strength equal bilaterally - Psychiatric Psychiatric: Present: A&O x's 3, appropriate affect, intact judgment & insight Results CBC & Chem 7: 08/20/19 11:24 08/20/19 11:24 Labs: Abnormal Lab Results - Last 24 Hours (Table) 08/19/19 08/19/19 08/19/19 Range/Units 18:12 18:12 19:00 WBC 17.5 H (3.8-10.6) k/uL Neutrophils # (Manual) 16.40 H (1.3-7.7) k/uL Lymphocytes # (Manual) 0.53 L (1.0-4.8) k/uL Metamyelocytes # (Man) 0.70 H (0) k/uL Sodium 135 L (137-145) mmol/L Carbon Dioxide 20 L (22-30) mmol/L BUN 37 H (7-17) mg/dL Creatinine 1.88 H (0.52-1.04) mg/dL Plasma Lactic Acid Jimenez (0.7-2.0) mmol/L AST 48 H (14-36) U/L Urine Appearance Cloudy H (Clear) Urine Protein 1+ H (Negative) Urine Blood Moderate H (Negative) Ur Leukocyte Esterase Large H (Negative) Urine RBC 11 H (0-5) /hpf Urine WBC 84 H (0-5) /hpf Urine WBC Clumps Few H (None) /hpf Amorphous Sediment Few H (None) /hpf Urine Bacteria Moderate H (None) /hpf Hyaline Casts 6 H (0-2) /lpf Urine Mucus Occasional H (None) /hpf 08/19/19 Range/Units 21:00 WBC (3.8-10.6) k/uL Neutrophils # (Manual) (1.3-7.7) k/uL Lymphocytes # (Manual) (1.0-4.8) k/uL Metamyelocytes # (Man) (0) k/uL Sodium (137-145) mmol/L Carbon Dioxide (22-30) mmol/L BUN (7-17) mg/dL Creatinine (0.52-1.04) mg/dL Plasma Lactic Acid Jimenez 3.1 H* (0.7-2.0) mmol/L AST (14-36) U/L Urine Appearance (Clear) Urine Protein (Negative) Urine Blood (Negative) Ur Leukocyte Esterase (Negative) Urine RBC (0-5) /hpf Urine WBC (0-5) /hpf Urine WBC Clumps (None) /hpf Amorphous Sediment (None) /hpf Urine Bacteria (None) /hpf Hyaline Casts (0-2) /lpf Urine Mucus (None) /hpf Thrombosis Risk Factor Assmnt - Choose All That Apply Any of the Below Risk Factors Present?: Yes Each Factor Represents 1 point: Obesity (BMI >25), Varicose veins Other Risk Factors: Yes Each Risk Factor Represents 2 Points: Patient confined to bed Other congenital or acquired thrombophilia - If yes, enter type in comment: No Thrombosis Risk Factor Assessment Total Risk Factor Score: 4 Thrombosis Risk Factor Assessment Level: Moderate Risk Assessment and Plan Assessment: 1. Sepsis secondary to UTI; with hypotension and elevated white blood count of 17,000 - patient started on Rocephin 1 g IV every 24 hours; we will follow blood and urine culture and tailor antibiotic therapy accordingly; repeat white blood count remains elevated at 17.1; continue to monitor CBC 2. Acute renal injury/dehydration; Continue with IV fluids in form of normal saline at a rate of 100 mL per hour; we will monitor strict HEIDY's, daily weights, renal function and electrolytes; avoid nephrotoxins and hypotension; Hold lisinopril/hydrochlorothiazide due to hypotension and renal function 3. Hypotension; sepsis versus dehydration; continue with normal saline at 100 mL an hour; we will continue to hold home dose of Zestoretic 4. Nausea/vomiting/diarrhea; possible acute gastroenteritis; we will start patient on clear liquid diet and advance as tolerated; symptomatic treatment 5. Hypertension; Patient takes Zestoretic 2025 milligrams daily; we will hold off and restart home medications once blood pressure is stable 6. Atrial fibrillation; chronic; with controlled ventricular response; patient not on any beta blockers or anticoagulation therapy DVT prophylaxis; subcu heparin CODE STATUS; full code Time with Patient: Greater than 30
[2019-08-21] MEDS: SODIUM CHLORIDE 0.9% 1,000 ML IV SCH ×2 (04:34→14:19)
[2019-08-21 06:54] LABS: MCH 31.9 pg (25.0-35.0); MCHC 32.4 g/dL (31.0-37.0); MCV 98.4 fL (80.0-100.0); Mean Platelet Volume 9.4; RBC 3.76 m/uL (3.80-5.40); RDW 12.1 % (11.5-15.5); WBC 17.2 k/uL (3.8-10.6)
[2019-08-21 07:11] LABS: Calcium 8.1 mg/dL (8.4-10.2); Potassium 3.8 mmol/L (3.5-5.1)
[2019-08-21] MEDS: PANTOPRAZOLE 40 MG/10 ML VIAL IV SCH (07:40)
[2019-08-21 08:17] LABS: Platelet Count 92 k/uL (150-450)
[2019-08-21 08:23] LABS: Band Neutrophils % 4 %; Lymphocytes # (M) 0.69 k/uL (1.0-4.8); Metamyelocytes # (M) 0.17 k/uL (0); Metamyelocytes % 1 %; Monocytes # (M) 0.69 k/uL (0-1.0); Neutrophils % (M) 88 %; Nucleated Red Blood Cells 0 /100 WBC (0-0); Total Cells Counted 200
[2019-08-21 08:25] LABS: Toxic Granulation Present
--- NOTE | 2019-08-21 18:26 | P.PN ---
Subjective Progress Note Date: 08/21/19 83-year-old female with history of hypertension, gastroesophageal reflux disease and atrial fibrillation, who presents with the onset of nausea vomiting diarrhea at about 1:00 this morning and having persistent diarrhea since that she feels very weak and tired she is noted have a blood pressure 81/67 upon arrival here. No overt fevers chills sweats chest pain or other symptoms; patient is somewhat confused and not able to provide a detailed history so most of the history is obtained from records Workup in ED with an EKG showing atrial fibrillation; lab work shows a UA positive for blood and leukoesterase with moderate amount of bacteria; chemical profile shows an elevated creatinine of 1.88; sodium at 135 and white blood count elevated at 17.5; patient is admitted to the hospital for further marsha atment with IV antibiotics and IV fluid hydration 08/21/2019 maintained on gentle IV fluid hydration, antibiotics. Blood pressure improving. Afebrile, WBC 17.2, urine culture pending. Tested negative for C. difficile. Consuming 50% of diet. Renal function improving, creatinine down to 1.19. Extremely weak, PT evaluation pending for this morning. Denies chest pain, palpitations or shortness of breath. Objective - Vital Signs Vital signs: Vital Signs Temp 97.9 F 08/21/19 15:00 Pulse 112 H 08/21/19 15:00 Resp 12 08/21/19 15:00 BP 132/73 08/21/19 15:00 Pulse Ox 98 08/21/19 15:00 Intake & Output 08/20/19 08/21/19 08/21/19 18:59 06:59 18:59 Intake Total 590 Output Total 98 Balance 590 -98 Intake: Oral 590 Output: Post Void Residual 98 Other: Voiding Method Bedpan Incontinent # Voids 3 2 5 - Exam - Constitutional General appearance: Present: average body habitus, cooperative, no acute distress - EENT Eyes: Present: anicteric sclerae, EOMI, PERRLA, normal appearance ENT: Present: hearing grossly normal, normal oropharynx Ears: bilateral: normal - Neck Neck: Present: normal ROM. Absent: lymphadenopathy, rigidity, thyromegaly Carotids: negative: bruit present Thyroid: bilateral: normal size, negative: enlarged, nodule - Respiratory Respiratory: bilateral: CTA, negative: rales, rhonchi, wheezing - Cardiovascular Rhythm: regular Heart sounds: normal: S1, S2 Abnormal Heart Sounds: Absent: systolic murmur, diastolic murmur - Gastrointestinal General gastrointestinal: Present: normal bowel sounds, soft. Absent: distended, organomegaly, tenderness - Integumentary Integumentary: Present: Varicose veins, venous stasis of bilateral lower extremities Neurologic: Present: CNII-XII intact. Generalized weakness. Absent: focal deficits Psychiatric: Present: A&O x's 3, appropriate affect, intact judgment & insight - Labs CBC & Chem 7: 08/21/19 06:33 08/21/19 06:33 Labs: Abnormal Lab Results - Last 24 Hours (Table) 08/21/19 08/21/19 Range/Units 06:33 06:33 WBC 17.2 H (3.8-10.6) k/uL RBC 3.76 L (3.80-5.40) m/uL Plt Count 92 L (150-450) k/uL Neutrophils # (Manual) 15.80 H (1.3-7.7) k/uL Lymphocytes # (Manual) 0.69 L (1.0-4.8) k/uL Metamyelocytes # (Man) 0.17 H (0) k/uL Chloride 114 H (98-107) mmol/L Carbon Dioxide 18 L (22-30) mmol/L BUN 39 H (7-17) mg/dL Creatinine 1.19 H (0.52-1.04) mg/dL Calcium 8.1 L (8.4-10.2) mg/dL Microbiology - Last 24 Hours (Table) 08/19/19 19:00 Urine Culture - Preliminary Urine,Voided Assessment and Plan Assessment: . Sepsis secondary to UTI 2. Acute renal injury/dehydration 3. Hypotension related to sepsis, dehydration 4. Nausea/vomiting/diarrhea; possible acute gastroenteritis 5. Hypertension 6. Atrial fibrillation; chronic; with controlled ventricular response; patient not on any beta blockers or anticoagulation therapy Plan: Continue on current medication regime ,monitoring and symptomatic treatment. Zestoretic remains on hold .Gentle IV fluid hydration and antibiotics. Close monitoring of renal function with repeat labs ordered for a.m. PT/OT. Potential subacute rehab. Patient currently lives with children and grandchildren. Discharge planning in progress for tomorrow. The impression and plan of care has been dictated as directed. : I performed a history and examination of this patient, discussed the same with the dictator. I agree with the dictator's note ,documented as a scribe. Any additional findings or plans will be noted.
[2019-08-21] MEDS: HEPARIN SODIUM,PORCINE 5,000 UNIT/ML 1 ML VIAL SQ SCH (22:07)
[2019-08-22] MEDS: SODIUM CHLORIDE 0.9% 1,000 ML IV SCH ×3 (00:12→23:53)
[2019-08-22 07:40] LABS: Basophils % (A) 0 %; Eosinophils % (A) 0 %; HCT 37.7 % (34.0-46.0); Lymphocytes # (A) 0.8 k/uL (1.0-4.8); Lymphocytes % (A) 5 %; MCH 31.3 pg (25.0-35.0); MCHC 31.9 g/dL (31.0-37.0); MCV 98.4 fL (80.0-100.0); Mean Platelet Volume 9.8; Monocytes # (A) 0.3 k/uL (0-1.0); Monocytes % (A) 2 %; Neutrophils # (A) 13.1 k/uL (1.3-7.7); Neutrophils % (A) 92 %; RBC 3.83 m/uL (3.80-5.40); RDW 12.2 % (11.5-15.5); WBC 14.3 k/uL (3.8-10.6)
[2019-08-22 08:05] LABS: Platelet Count 81 k/uL (150-450)
[2019-08-22 08:10] LABS: Calcium 8.4 mg/dL (8.4-10.2); Potassium 3.8 mmol/L (3.5-5.1)
[2019-08-22] MEDS: PANTOPRAZOLE 40 MG/10 ML VIAL IV SCH (09:05)
[2019-08-22] MEDS: HEPARIN SODIUM,PORCINE 5,000 UNIT/ML 1 ML VIAL SQ SCH ×2 (09:06→20:56)
--- NOTE | 2019-08-22 17:32 | P.PN ---
Subjective Progress Note Date: 08/22/19 83-year-old female with history of hypertension, gastroesophageal reflux disease and atrial fibrillation, who presents with the onset of nausea vomiting diarrhea at about 1:00 this morning and having persistent diarrhea since that she feels very weak and tired she is noted have a blood pressure 81/67 upon arrival here. No overt fevers chills sweats chest pain or other symptoms; patient is somewhat confused and not able to provide a detailed history so most of the history is obtained from records Workup in ED with an EKG showing atrial fibrillation; lab work shows a UA positive for blood and leukoesterase with moderate amount of bacteria; chemical profile shows an elevated creatinine of 1.88; sodium at 135 and white blood count elevated at 17.5; patient is admitted to the hospital for further marsha atment with IV antibiotics and IV fluid hydration 08/21/2019 maintained on gentle IV fluid hydration, antibiotics. Blood pressure improving. Afebrile, WBC 17.2, urine culture pending. Tested negative for C. difficile. Consuming 50% of diet. Renal function improving, creatinine down to 1.19. Extremely weak, PT evaluation pending for this morning. Denies chest pain, palpitations or shortness of breath. 08/21/2019 maintained on IV antibiotics,.afebrile, leukocytosis improving. Urine culture reporting gram-negative bacilli, pending. Renal function improving. Chronic atrial fibrillation, not on beta blockers or anticoagulation. DVT prophylaxis currently with heparin subcu and will discuss with patient and family in a.m. significant weakness, evaluated by PT/OT, subacute rehab recommended at discharge. Objective - Vital Signs Vital signs: Vital Signs Temp 97.9 F 08/22/19 15:00 Pulse 101 H 08/22/19 15:00 Resp 20 08/22/19 15:00 BP 130/83 08/22/19 15:00 Pulse Ox 99 08/22/19 15:00 Intake & Output 08/21/19 08/22/19 08/22/19 18:59 06:59 18:59 Intake Total 236 Balance 236 Intake: Oral 236 Other: Voiding Method Incontinent Incontinent Incontinent # Voids 5 1 3 - Exam - Constitutional General appearance: Present: average body habitus, cooperative, no acute distress - EENT Eyes: Present: anicteric sclerae, EOMI, PERRLA, normal appearance ENT: Present: hearing grossly normal, normal oropharynx Ears: bilateral: normal - Neck Neck: Present: normal ROM. Absent: lymphadenopathy, rigidity, thyromegaly Carotids: negative: bruit present Thyroid: bilateral: normal size, negative: enlarged, nodule - Respiratory Respiratory: bilateral: CTA, negative: rales, rhonchi, wheezing - Cardiovascular Rhythm: regular Heart sounds: normal: S1, S2 Abnormal Heart Sounds: Absent: systolic murmur, diastolic murmur - Gastrointestinal General gastrointestinal: Present: normal bowel sounds, soft. Absent: distended, organomegaly, tenderness - Integumentary Integumentary: Present: Varicose veins, venous stasis of bilateral lower extr emities Neurologic: Present: CNII-XII intact. Generalized weakness. Absent: focal deficits Psychiatric: Present: A&O x's 3, appropriate affect, intact judgment & insight - Labs CBC & Chem 7: 08/22/19 06:46 08/22/19 06:46 Labs: Abnormal Lab Results - Last 24 Hours (Table) 08/22/19 08/22/19 Range/Units 06:46 06:46 WBC 14.3 H (3.8-10.6) k/uL Plt Count 81 L (150-450) k/uL Neutrophils # 13.1 H (1.3-7.7) k/uL Lymphocytes # 0.8 L (1.0-4.8) k/uL Chloride 115 H (98-107) mmol/L Carbon Dioxide 19 L (22-30) mmol/L BUN 30 H (7-17) mg/dL Microbiology - Last 24 Hours (Table) 08/19/19 19:00 Urine Culture - Preliminary Urine,Voided Gram Neg Bacilli Assessment and Plan Assessment: . Sepsis secondary to UTI with gram-negative bacilli 2. Acute renal injury/dehydration 3. Hypotension related to sepsis, dehydration 4. Nausea/vomiting/diarrhea; possible acute gastroenteritis 5. Hypertension 6. Atrial fibrillation; chronic; with controlled ventricular response; patient not on any beta blockers or anticoagulation therapy Plan: Continue on current medication regime ,monitoring and symptomatic treatment. Zestoretic remains on hold .maintain antibiotics. Heparin subcu for DVT prophylaxis /discuss further with patient and family regarding anticoagulation for A. fib .Close monitoring of renal function with repeat labs ordered for a.m. PT/OT. Patient currently lives with children and grandchildren. Discharge planning in progress for tomorrow. The impression and plan of care has been dictated as directed. : I performed a history and examination of this patient, discussed the same with the dictator. I agree with the dictator's note ,documented as a scribe. Any additional findings or plans will be noted.
[2019-08-22] MEDS: valACYclovir HCL 1,000 MG TABLET PO SCH (20:56)
[2019-08-23 06:42] LABS: Basophils % (A) 1 %; Eosinophils # (A) 0.1 k/uL (0-0.7); Eosinophils % (A) 1 %; HCT 37.1 % (34.0-46.0); Lymphocytes # (A) 0.8 k/uL (1.0-4.8); Lymphocytes % (A) 9 %; MCH 31.6 pg (25.0-35.0); MCHC 32.3 g/dL (31.0-37.0); MCV 97.9 fL (80.0-100.0); Monocytes # (A) 0.4 k/uL (0-1.0); Monocytes % (A) 4 %; Neutrophils # (A) 6.8 k/uL (1.3-7.7); Neutrophils % (A) 83 %; RBC 3.79 m/uL (3.80-5.40); RDW 12.2 % (11.5-15.5); WBC 8.1 k/uL (3.8-10.6)
[2019-08-23 06:46] LABS: Platelet Count 80 k/uL (150-450)
[2019-08-23 06:50] LABS: Calcium 8.2 mg/dL (8.4-10.2); Potassium 3.8 mmol/L (3.5-5.1)
[2019-08-23] MEDS: SODIUM CHLORIDE 0.9% 1,000 ML IV SCH (07:09)
[2019-08-23 07:45] VITALS: BP 126/80; PULSE 86; RESP 12; TEMP 97.8
[2019-08-23] MEDS: HEPARIN SODIUM,PORCINE 5,000 UNIT/ML 1 ML VIAL SQ SCH (08:58)
[2019-08-23] MEDS: valACYclovir HCL 1,000 MG TABLET PO SCH (08:58)
[2019-08-23] MEDS ORDERED: PANTOPRAZOLE 40 MG TABLET PO SCH (09:00)
--- NOTE | 2019-08-23 09:21 | P.DS ---
Providers Date of admission: 08/19/19 20:58 Expected date of discharge: 08/23/19 Attending physician: Karlo Rodriguez MD Primary care physician: Jill Archibald Hospital Course: Final diagnoses . Sepsis secondary to UTI with E. coli 2. Acute renal injury/dehydration 3. Hypotension related to sepsis, dehydration 4. Nausea/vomiting/diarrhea; possible acute gastroenteritis 5. Hypertension 6. Atrial fibrillation; chronic; with controlled ventricular response; patient not on any beta blockers or anticoagulation therapy, using homeopathic methods. 7. Herpes Labialis, recurrent Hospital course:83-year-old female with history of hypertension, gastroesophageal reflux disease and atrial fibrillation, who presents with the onset of nausea vomiting diarrhea at about 1:00 this morning and having persistent diarrhea since that she feels very weak and tired she is noted have a blood pressure 81/67 upon arrival here. No overt fevers chills sweats chest pain or other symptoms; patient is somewhat confused and not able to provide a detailed history so most of the history is obtained from records Workup in ED with an EKG showing atrial fibrillation; lab work shows a UA pos itive for blood and leukoesterase with moderate amount of bacteria; chemical profile shows an elevated creatinine of 1.88; sodium at 135 and white blood count elevated at 17.5; patient is admitted to the hospital for further treatment with IV antibiotics and IV fluid hydration 08/21/2019 maintained on gentle IV fluid hydration, antibiotics. Blood pressure improving. Afebrile, WBC 17.2, urine culture pending. Tested negative for C. difficile. Consuming 50% of diet. Renal function improving, creatinine down to 1.19. Extremely weak, PT evaluation pending for this morning. Denies chest pain, palpitations or shortness of breath. 08/21/2019 maintained on IV antibiotics,.afebrile, leukocytosis improving. Urine culture reporting gram-negative bacilli, pending. Renal function improving. Chronic atrial fibrillation, not on beta blockers or anticoagulation. DVT prophylaxis currently with heparin subcu and will discuss with patient and family in a.m. significant weakness, evaluated by PT/OT, subacute rehab recommended at discharge. Valtrex initiated yesterday for cold sores. No thrush. Complains of soreness/tenderness just inside of her lips, Neurontin added 3 days in addition to Valtrex. Urine culture growing E. coli. Maintained on IV antibiotics. Patient follows with Dr. Bauman, cardiology. At this time continues to decline anticoagulation regarding chronic atrial fibrillation ,state they prefer to proceed with homeopathic methods. Significant clinical improvement. Patient is being discharged to [facility] rehab. In a stable condition with guarded prognosis. - Exam -General: Alert and oriented 3, no acute distress - HEENT: Dry, crusty upper and lower lips. No thrush. Oral mucosa moist. - Respiratorory: bilateral: CTA - Cardiovascular:regular,normal: S1, S2 -Gastrointestinal: normal bowel sounds, soft, nontender. Positive bowel sounds. -Neurologic: No focal deficits The impression and plan of care has been dictated as directed. : I performed a history and examination of this patient, discussed the same with the dictator. I agree with the dictator's note ,documented as a scribe. Any additional findings or plans will be noted. Patient Condition at Discharge: Stable Plan - Discharge Summary Discharge Rx Participant: Yes New Discharge Prescriptions: New Pantoprazole [Protonix] 40 mg PO DAILY tablet. Acetaminophen Tab [Tylenol] 650 mg PO Q6HR PRN tab PRN Reason: Mild Pain Or Fever > 100.5 Cephalexin [Keflex] 500 mg PO Q8HR #9 cap Gabapentin [Neurontin] 300 mg PO TID #9 cap valACYclovir HCL [Valtrex] 500 mg PO Q12HR #4 tab Discharge Medication List Acetaminophen Tab [Tylenol] 650 mg PO Q6HR PRN tab 08/23/19 [Rx] Cephalexin [Keflex] 500 mg PO Q8HR #9 cap 08/23/19 [Rx] Gabapentin [Neurontin] 300 mg PO TID #9 cap 08/23/19 [Rx] Pantoprazole [Protonix] 40 mg PO DAILY tablet. 08/23/19 [Rx] valACYclovir HCL [Valtrex] 500 mg PO Q12HR #4 tab 08/23/19 [Rx] Follow up Appointment(s)/Referral(s): Meenakshi Cortés, [NON-STAFF] - As Needed Jill Archibald DO [Primary Care Provider] - 1 Week (After discharge from subacute rehab) Activity/Diet/Wound Care/Special Instructions: [facility] Diet: Cardiac Activity: As tolerated CBC, BMP in 3 days Patient has chronic A. fib, follows with Dr. Bauman, who also has been discussing anticoagulation with them including risks, benefits. Patient and family at this time declining, states they use homeopathic. Discharge Disposition: TRANSFER TO SNF/ECF
--- NOTE | 2019-08-30 19:01 | CDI ---
Documentation Clarification Form Date: 08/30/19 From: Katherine Paulson Phone: If you have a question about this query, please contact Livier Nelson, Staffing Administrator at [phone] between 8am and 5pm. Admit Date: 08/19/19 Discharge Date: 08/23/19 Patient Name: Dinorah Aragon Visit Number: [id number] ATTENTION: The Clinical Documentation Specialists (CDI) and [facility] Coding Staff appreciate your assistance in clarifying documentation. Please respond to the clarification below the line at the bottom and electronically sign. The CDI & [facility] Coding staff will review the response and follow-up if needed. Please note: Queries are made part of the Legal Health Record. If you have any questions, please contact the author of this message via ITS. Dear Dr. Rodriguez, The patient presented with sepsis. H&P, PNs and DS document: patient is somewhat confused and not able to provide a detailed history. History/Risk Factors: Sepsis, UTI, Hypotension, dehydration, PAULA Clinical Indicators: Confusion, unable to provide history Lab findings: Sodium 135, Plasma Lactic Acid 3.1, Vitals: BP 80/49, RR 16, OH 101, Temp 98.2 Treatment: IV antibiotics, IV hydration In your professional opinion, can you please clarify confusion? Metabolic Encephalopathy Other Encephalopathy Delirium Other, please specify Unable to determine metabolic encephalopathy MTDD
== END 2019-08-23 12:35 | DRG 871 ==
LOC: EC 17:41 → 4SSUR 20:58
PROVIDERS: ADMIT Family Medicine; ATTEND Family Medicine
DX: A41.51 Sepsis due to Escherichia coli [E. coli] (principal); G93.41 Metabolic encephalopathy; N17.9 Acute kidney failure, unspecified; I48.20 Chronic atrial fibrillation, unspecified; N39.0 Urinary tract infection, site not specified; E86.0 Dehydration; I95.9 Hypotension, unspecified; I10 Essential (primary) hypertension; K21.9 Gastro-esophageal reflux disease without esophagitis; B00.1 Herpesviral vesicular dermatitis; K52.9 Noninfective gastroenteritis and colitis, unspecified; M19.90 Unspecified osteoarthritis, unspecified site; K44.9 Diaphragmatic hernia without obstruction or gangrene; I83.90 Asymptomatic varicose veins of unspecified lower extremity; Z90.710 Acquired absence of both cervix and uterus; Z98.42 Cataract extraction status, left eye; Z98.41 Cataract extraction status, right eye; Z90.49 Acquired absence of other specified parts of digestive tract; Z88.2 Allergy status to sulfonamides; Z82.5 Family history of asthma and other chronic lower respiratory diseases; Z80.9 Family history of malignant neoplasm, unspecified; Z84.1 Family history of disorders of kidney and ureter
CPT/HCPCS: 36415; 74018; 80048; 80053; 81001; 83605; 83690; 83735; 85025; 87077; 87086; 87186; 87324; 93005; 96361; 96374; 99291

== ENCOUNTER 2020-10-13 15:44 | Inpatient (IN) | payer MEDICARE, BC ==
--- NOTE | 2020-10-13 15:55 | ED ---
General Adult HPI - General Chief complaint: Abdominal Pain Stated complaint: back/abd pain, vomiting Time Seen by Provider: 10/13/20 15:54 Source: patient, family Mode of arrival: wheelchair Limitations: no limitations - History of Present Illness Initial comments: Patient presents to the ED with her daughter for evaluation. Per daughter, the patient developed sudden onset right sided lower back pain about 2 hours ago, and her pain then moved to her left lower back and then to her abdomen. Daughter states that the patient has also been vomiting since her pain began. Daughter states that the patient also seems to be confused since they have arr ived in the emergency department. Daughter states that the patient had similar symptoms when she was diagnosed with a urinary tract infection in the past. Patient states that her pain has resolved since coming to the emergency department, but she states that she still feels nauseated. Patient denies fever or chills, headache, focal numbness/weakness/neuro deficit, chest pain, dyspnea, cough or cold symptoms, dizziness, diarrhea or constipation (patient states that she had a normal bowel movement earlier today), hematemesis, bloody or melanotic stool, dysuria/hematuria/urinary frequency/urinary symptoms, incontinence or urinary retention, any other symptoms or complaints. - Related Data Previous Rx's Medication Instructions Recorded Acetaminophen Tab [Tylenol] 650 mg PO Q6HR PRN tab 08/23/19 Cephalexin [Keflex] 500 mg PO Q8HR #9 cap 08/23/19 Gabapentin [Neurontin] 300 mg PO TID #9 cap 08/23/19 Pantoprazole [Protonix] 40 mg PO DAILY tablet. 08/23/19 valACYclovir HCL [Valtrex] 500 mg PO Q12HR #4 tab 08/23/19 Allergies Allergy/AdvReac Type Severity Reaction Status Date / Time Sulfa (Sulfonamide Allergy Unknown Verified 10/13/20 15:47 Antibiotics) Review of Systems ROS Statement: Those systems with pertinent positive or pertinent negative responses have been documented in the HPI. ROS Other: All systems not noted in ROS Statement are negative. Past Medical History Past Medical History: Atrial Fibrillation, Eye Disorder, GERD/Reflux, Hypertension Additional Past Medical History / Comment(s): ANDREW CATARACTS REMOVED.HIATAL HERNIA, INCONT OF URINE WEARS A PAD,ARTHRITIS,VARICOSE VEINS History of Any Multi-Drug Resistant Organisms: None Reported Past Surgical History: Adenoidectomy, Cholecystectomy, Hysterectomy, Tonsillectomy Additional Past Surgical History / Comment(s): EXC ANDREW CATARACTS. PARTIAL HYST- STILL HAS 1 OVARY.EGD Past Anesthesia/Blood Transfusion Reactions: No Reported Reaction Additional Past Anesthesia/Blood Transfusion Reaction / Comment(s): NEVER HAD HAD TRASFUSIONS Past Psychological History: No Psychological Hx Reported Smoking Status: Never smoker Past Alcohol Use History: None Reported Past Drug Use History: None Reported - Past Family History Father History Unknown: Yes Family Medical History: Cancer Mother Additional Family Medical History / Comment(s): mother was in good health and dies at 93 Brother(s) Additional Family Medical History / Comment(s): kidney removal Daughter(s) Family Medical History: No Reported History Son(s) Family Medical History: Asthma, Sleep Apnea/CPAP/BIPAP General Exam Limitations: no limitations General appearance: alert Head exam: Present: atraumatic, normocephalic Eye exam: Present: normal appearance, PERRL, EOMI ENT exam: Present: mucous membranes moist Neck exam: Present: other (Trachea is in midline). Absent: tenderness, meningismus Respiratory exam: Present: normal lung sounds bilaterally. Absent: respiratory distress, wheezes, rales, rhonchi, stridor Cardiovascular Exam: Present: regular rate, irregular rhythm, normal heart sounds, other (Normal radial pulses bilaterally) GI/Abdominal exam: Present: soft, normal bowel sounds. Absent: distended, tenderness, guarding Extremities exam: Present: full ROM. Absent: tenderness, pedal edema Back exam: Absent: tenderness, CVA tenderness (R), CVA tenderness (L) Neurological exam: Present: alert, CN II-XII intact, other (Patient is oriented to person, but not to time or place). Absent: motor sensory deficit Psychiatric exam: Present: normal affect, normal mood Skin exam: Present: warm, dry, intact, normal color Course Vital Signs 10/13/20 10/13/20 15:45 16:53 Temperature 100.0 F H Pulse Rate 68 118 H Respiratory 18 18 Rate Blood Pressure 132/77 109/99 O2 Sat by Pulse 95 93 L Oximetry - Reevaluation(s) Reevaluation #1: 10/13/20 17:45 Case, H&P, test results and ED management thus far were discussed with Dr. Merrill (urology). He recommends admitting the patient to her primary care service, and he states that he will be on consult. He recommends keeping the patient NPO. He has no further recommendations at this time. 10/13/20 17:55 Case, H&P, test results, ED management thus far and my discussion with Dr. Merrill as above were discussed with Dr. Loredo. She accepts hospital admission. She has no further recommendations at this time. 10/13/20 18:09 Patient remains alert and breathing comfortably. Patient's symptoms have improved with ED treatment. Patient and daughter are aware the patient's test results and my discussions as above. They both agree with hospital admission at this time. EKG Findings - EKG Comments: EKG Findings:: Atrial fibrillation with RVR, ventricular rate of 131 bpm, normal QRS duration, normal axis, normal QT interval, nonspecific ST and T-wave abnormality Medical Decision Making - Medical Decision Making I suspect that the patient's symptoms are secondary to obstructive nephrolithiasis given the patient's CT findings. I also suspect that the patient may have a UTI given her UA findings. The etiology of the patient's leukopenia is unclear at this time, although it may be secondary to her UTI and a septic state. Patient was treated with IV fluids, antiemetics and IV antibiotics in the ED. Dr. Loredo has accepted hospital admission and Dr. Merrill has been consulted. - Lab Data Result diagrams: 10/13/20 16:14 10/13/20 16:14 Lab Results 10/13/20 10/13/20 10/13/20 Range/Units 16:14 16:14 16:14 WBC 1.7 L (3.8-10.6) k/uL RBC 4.32 (3.80-5.40) m/uL Hgb 14.2 (11.4-16.0) gm/dL Hct 42.7 (34.0-46.0) % MCV 98.8 (80.0-100.0) fL MCH 32.8 (25.0-35.0) pg MCHC 33.2 (31.0-37.0) g/dL RDW 12.7 (11.5-15.5) % Plt Count 127 L (150-450) k/uL MPV 7.0 PT 11.5 (9.0-12.0) sec INR 1.1 (<1.2) APTT 19.3 L (22.0-30.0) sec Sodium (137-145) mmol/L Potassium (3.5-5.1) mmol/L Chloride (98-107) mmol/L Carbon Dioxide (22-30) mmol/L Anion Gap mmol/L BUN (7-17) mg/dL Creatinine (0.52-1.04) mg/dL Est GFR (CKD-EPI)AfAm (>60 ml/min/1.73 sqM) Est GFR (CKD-EPI)NonAf (>60 ml/min/1.73 sqM) Glucose (74-99) mg/dL Plasma Lactic Acid Jimenez (0.7-2.0) mmol/L Calcium (8.4-10.2) mg/dL Total Bilirubin (0.2-1.3) mg/dL AST (14-36) U/L ALT (4-34) U/L Alkaline Phosphatase (38-126) U/L Troponin I (0.000-0.034) ng/mL Total Protein (6.3-8.2) g/dL Albumin (3.5-5.0) g/dL Amylase (30-110) U/L Lipase (23-300) U/L Urine Color Yellow Urine Appearance Cloudy H (Clear) Urine pH 6.0 (5.0-8.0) Ur Specific Hobgood 1.008 (1.001-1.035) Urine Protein Negative (Negative) Urine Glucose (UA) Negative (Negative) Urine Ketones Negative (Negative) Urine Blood Large H (Negative) Urine Nitrite Positive H (Negative) Urine Bilirubin Negative (Negative) Urine Urobilinogen <2.0 (<2.0) mg/dL Ur Leukocyte Esterase Large H (Negative) Urine RBC >182 H (0-5) /hpf Urine WBC 46 H (0-5) /hpf Urine Bacteria Rare H (None) /hpf 10/13/20 10/13/20 10/13/20 Range/Units 16:14 16:14 16:14 WBC (3.8-10.6) k/uL RBC (3.80-5.40) m/uL Hgb (11.4-16.0) gm/dL Hct (34.0-46.0) % MCV (80.0-100.0) fL MCH (25.0-35.0) pg MCHC (31.0-37.0) g/dL RDW (11.5-15.5) % Plt Count (150-450) k/uL MPV PT (9.0-12.0) sec INR (<1.2) APTT (22.0-30.0) sec Sodium 139 (137-145) mmol/L Potassium 3.9 (3.5-5.1) mmol/L Chloride 103 (98-107) mmol/L Carbon Dioxide 27 (22-30) mmol/L Anion Gap 9 mmol/L BUN 25 H (7-17) mg/dL Creatinine 0.95 (0.52-1.04) mg/dL Est GFR (CKD-EPI)AfAm 63 (>60 ml/min/1.73 sqM) Est GFR (CKD-EPI)NonAf 55 (>60 ml/min/1.73 sqM) Glucose 86 (74-99) mg/dL Plasma Lactic Acid Jimenez 2.4 H* (0.7-2.0) mmol/L Calcium 9.9 (8.4-10.2) mg/dL Total Bilirubin 1.4 H (0.2-1.3) mg/dL AST 56 H (14-36) U/L ALT 44 H (4-34) U/L Alkaline Phosphatase 72 (38-126) U/L Troponin I <0.012 (0.000-0.034) ng/mL Total Protein 7.6 (6.3-8.2) g/dL Albumin 4.3 (3.5-5.0) g/dL Amylase 58 (30-110) U/L Lipase 80 (23-300) U/L Urine Color Urine Appearance (Clear) Urine pH (5.0-8.0) Ur Specific Hobgood (1.001-1.035) Urine Protein (Negative) Urine Glucose (UA) (Negative) Urine Ketones (Negative) Urine Blood (Negative) Urine Nitrite (Negative) Urine Bilirubin (Negative) Urine Urobilinogen (<2.0) mg/dL Ur Leukocyte Esterase (Negative) Urine RBC (0-5) /hpf Urine WBC (0-5) /hpf Urine Bacteria (None) /hpf - Radiology Data Radiology results: report reviewed (Noncontrast head CT: Age-appropriate atrophy, otherwise negative; CT abdomen/pelvis without contrast: Left-sided hydronephrosis with multiple left renal calcifications, small right renal calcification without right-sided hydronephrosis, large hiatal hernia), image reviewed (Chest x-ray is negative) Disposition Clinical Impression: Abdominal pain, Nausea and vomiting, Altered mental status, Atrial fibril lation, Nephrolithiasis, Leukopenia Narrative: Suspected UTI Disposition: ADMITTED IP TO THIS HOSP Condition: Stable Is patient prescribed a controlled substance at d/c from ED?: No Time of Disposition: 17:55
[2020-10-13] MEDS ORDERED: ONDANSETRON 4 MG/2 ML VIAL IVP STA (16:02)
[2020-10-13] MEDS ORDERED: MORPHINE SULFATE 4 MG/ML SYRINGE IV STA (16:02)
[2020-10-13] MEDS ORDERED: SODIUM CHLORIDE 0.9% 500 ML 500 ML IV STA (16:02)
[2020-10-13 16:35] LABS: Albumin 4.3 g/dL (3.5-5.0); Calcium 9.9 mg/dL (8.4-10.2); Potassium 3.9 mmol/L (3.5-5.1); Total Bilirubin 1.4 mg/dL (0.2-1.3); Total Protein 7.6 g/dL (6.3-8.2)
[2020-10-13 16:40] LABS: INR 1.1 (<1.2); Prothrombin Time 11.5 sec (9.0-12.0)
[2020-10-13 16:49] LABS: Partial Thromboplastin Time 19.3 sec (22.0-30.0)
--- NOTE | 2020-10-13 17:04 | XR ---
EXAMINATION TYPE: XR chest 1V portable DATE OF EXAM: 10/13/2020 COMPARISON: 08/23/2016 HISTORY: Rule out PE TECHNIQUE: Single frontal view of the chest is obtained. FINDINGS: There is no focal air space opacity, pleural effusion, or pneumothorax seen. The cardiac silhouette size is within normal limits. The osseous structures are intact. Incidental note is made of a hiatal hernia. IMPRESSION: No acute process.
[2020-10-13 17:11] LABS: HCT 42.7 % (34.0-46.0); HGB 14.2 gm/dL (11.4-16.0); MCH 32.8 pg (25.0-35.0); MCHC 33.2 g/dL (31.0-37.0); MCV 98.8 fL (80.0-100.0); Platelet Count 127 k/uL (150-450); RBC 4.32 m/uL (3.80-5.40); RDW 12.7 % (11.5-15.5); WBC 1.7 k/uL (3.8-10.6)
--- NOTE | 2020-10-13 17:11 | CT ---
EXAMINATION TYPE: CT brain wo con DATE OF EXAM: 10/13/2020 COMPARISON: 12/13/2015 HISTORY: Confusion CT DLP: 1099.4 mGycm Automated exposure control for dose reduction was used. FINDINGS: Mild to moderate age-appropriate atrophy. No mass affect or shift of midline structures. No abnormal parenchymal density and no acute intra-abdominal contents appear normal and symmetric. Visualized par anasal sinuses and mastoid air cells are well aerated. Impression: age-appropriate atrophy without acute bleed or mass effect. Intra or extra-axial hemorrhage
--- NOTE | 2020-10-13 17:18 | CT ---
EXAMINATION TYPE: CT abdomen pelvis wo con DATE OF EXAM: 10/13/2020 COMPARISON: None HISTORY: Back/abdominal pain, vomitting. History of septic UTI CT DLP: 903 mGycm Automated exposure control for dose reduction was used. TECHNIQUE: Helical acquisition of images was performed from the lung bases through the pelvis. Exam is limited by involuntary patient motion and lack of IV contrast. FINDINGS: The lung bases are clear. There is a large hiatal hernia. There are multiple left renal calcifications the largest of which is 1.5 cm. There is a single right renal calcification. There is left-sided hydronephrosis. There is no organomegaly involving the liver pancreas or spleen. There are surgical clips the gallbla dder. The bowel loops are normal in caliber. There is no free intraperitoneal air or fluid. There is no pelvic abscess free fluid abscess or adenopathy. The osseous structures are grossly intact. IMPRESSION: 1. Left-sided hydronephrosis with multiple left renal calcifications. 2. Single right renal calcification without right-sided hydronephrosis. 3. Large hiatal hernia
[2020-10-13 17:33] LABS: Appearance,Urine Cloudy (Clear); Bacteria,Urine Rare /hpf; Bilirubin,Urine Negative (Negative); Blood,Urine Large (Negative); Color,Urine Yellow; Glucose,Urine (UA) Negative (Negative); Ketones,Urine Negative (Negative); Leukocyte Esterase,Urine Large (Negative); Nitrite,Urine Positive (Negative); Protein,Urine Negative (Negative); RBC,Urine >182 /hpf (0-5); Specific Gravity,Urine 1.008 (1.001-1.035); Urobilinogen,Urine <2.0 mg/dL (<2.0); WBC,Urine 46 /hpf (0-5)
[2020-10-13] MEDS ORDERED: MORPHINE SULFATE 4 MG/ML SYRINGE IV PRN (17:57)
[2020-10-13] MEDS ORDERED: NALOXONE 0.4 MG/ML 1 ML VIAL IV PRN (17:57)
[2020-10-13] MEDS ORDERED: ONDANSETRON 4 MG/2 ML VIAL IVP PRN (17:57)
--- NOTE | 2020-10-13 18:50 | P.GSCN ---
History of Present Illness Consult date: 10/13/20 Reason for Consult: UTI, left renal calculi Requesting physician: Miguel Angel Vu History of present illness: The patient is an 85-year-old white female with a history of kidney stones, for which she has never required surgery. She was hospitalized with E. coli sepsis resulting from a UTI in August 2019. She currently takes Amoxicillin daily for UTI prophylaxis. This afternoon, she experienced left flank pain radiating to the lower abdomen, associated with nausea and vomiting. She subsequently developed mental status changes and weakness. Review of Systems - Constitutional Reports fever - Gastrointestinal Reports nausea, Reports vomiting - Genitourinary Genitourinary: Reports flank pain, Reports kidney stones - Neurological Reports change in mentation, Reports confusion Past Medical History Past Medical History: Atrial Fibrillation, Eye Disorder, GERD/Reflux, Hypertension Additional Past Medical History / Comment(s): ANDREW CATARACTS REMOVED.HIATAL HERNIA, INCONT OF URINE WEARS A PAD,ARTHRITIS,VARICOSE VEINS History of Any Multi-Drug Resistant Organisms: None Reported Past Surgical History: Adenoidectomy, Cholecystectomy, Hysterectomy, Ton sillectomy Additional Past Surgical History / Comment(s): EXC ANDREW CATARACTS. PARTIAL HYST- STILL HAS 1 OVARY.EGD Past Anesthesia/Blood Transfusion Reactions: No Reported Reaction Additional Past Anesthesia/Blood Transfusion Reaction / Comm: NEVER HAD HAD TRASFUSIONS Past Psychological History: No Psychological Hx Reported Smoking Status: Never smoker Past Alcohol Use History: None Reported Past Drug Use History: None Reported - Past Family History Father History Unknown: Yes Family Medical History: Cancer Mother Additional Family Medical History / Comment(s): mother was in good health and dies at 93 Brother(s) Additional Family Medical History / Comment(s): kidney removal Daughter(s) Family Medical History: No Reported History Son(s) Family Medical History: Asthma, Sleep Apnea/CPAP/BIPAP Medications and Allergies Home Medications Medication Instructions Recorded Confirmed Type Amoxicillin 250 mg PO DAILY 10/13/20 10/13/20 History Allergies Allergy/AdvReac Type Severity Reaction Status Date / Time Sulfa (Sulfonamide Allergy Unknown Verified 10/13/20 15:47 Antibiotics) Surgical - Exam Vital Signs Temp Pulse Resp BP Pulse Ox 100.0 F H 68 18 132/77 95 10/13/20 15:45 10/13/20 15:45 10/13/20 15:45 10/13/20 15:45 10/13/20 15:45 - General well developed, well nourished, moderate distress - Respiratory normal respiratory effort - Abdomen Abdomen: soft, non tender, no guarding, no rigid, no rebound - Psychiatric oriented to time, oriented to person, oriented to place, speech is normal, memory intact Results - Labs 10/13/20 16:14 10/13/20 16:14 Abnormal Lab Results - Last 24 Hours (Table) 10/13/20 10/13/20 10/13/20 Range/Units 16:14 16:14 16:14 WBC 1.7 L (3.8-10.6) k/uL Plt Count 127 L (150-450) k/uL APTT 19.3 L (22.0-30.0) sec BUN (7-17) mg/dL Plasma Lactic Acid Jimenez (0.7-2.0) mmol/L Total Bilirubin (0.2-1.3) mg/dL AST (14-36) U/L ALT (4-34) U/L Urine Appearance Cloudy H (Clear) Urine Blood Large H (Negative) Urine Nitrite Positive H (Negative) Ur Leukocyte Esterase Large H (Negative) Urine RBC >182 H (0-5) /hpf Urine WBC 46 H (0-5) /hpf Urine Bacteria Rare H (None) /hpf 10/13/20 10/13/20 Range/Units 16:14 16:14 WBC (3.8-10.6) k/uL Plt Count (150-450) k/uL APTT (22.0-30.0) sec BUN 25 H (7-17) mg/dL Plasma Lactic Acid Jimenez 2.4 H* (0.7-2.0) mmol/L Total Bilirubin 1.4 H (0.2-1.3) mg/dL AST 56 H (14-36) U/L ALT 44 H (4-34) U/L Urine Appearance (Clear) Urine Blood (Negative) Urine Nitrite (Negative) Ur Leukocyte Esterase (Negative) Urine RBC (0-5) /hpf Urine WBC (0-5) /hpf Urine Bacteria (None) /hpf Diabetes panel 10/13/20 Range/Units 16:14 Sodium 139 (137-145) mmol/L Potassium 3.9 (3.5-5.1) mmol/L Chloride 103 (98-107) mmol/L Carbon Dioxide 27 (22-30) mmol/L BUN 25 H (7-17) mg/dL Creatinine 0.95 (0.52-1.04) mg/dL Glucose 86 (74-99) mg/dL Calcium 9.9 (8.4-10.2) mg/dL AST 56 H (14-36) U/L ALT 44 H (4-34) U/L Alkaline Phosphatase 72 (38-126) U/L Total Protein 7.6 (6.3-8.2) g/dL Albumin 4.3 (3.5-5.0) g/dL Calcium panel 10/13/20 Range/Units 16:14 Calcium 9.9 (8.4-10.2) mg/dL Albumin 4.3 (3.5-5.0) g/dL Pituitary panel 10/13/20 Range/Units 16:14 Sodium 139 (137-145) mmol/L Potassium 3.9 (3.5-5.1) mmol/L Chloride 103 (98-107) mmol/L Carbon Dioxide 27 (22-30) mmol/L BUN 25 H (7-17) mg/dL Creatinine 0.95 (0.52-1.04) mg/dL Glucose 86 (74-99) mg/dL Calcium 9.9 (8.4-10.2) mg/dL Adrenal panel 10/13/20 Range/Units 16:14 Sodium 139 (137-145) mmol/L Potassium 3.9 (3.5-5.1) mmol/L Chloride 103 (98-107) mmol/L Carbon Dioxide 27 (22-30) mmol/L BUN 25 H (7-17) mg/dL Creatinine 0.95 (0.52-1.04) mg/dL Glucose 86 (74-99) mg/dL Calcium 9.9 (8.4-10.2) mg/dL Total Bilirubin 1.4 H (0.2-1.3) mg/dL AST 56 H (14-36) U/L ALT 44 H (4-34) U/L Alkaline Phosphatase 72 (38-126) U/L Total Protein 7.6 (6.3-8.2) g/dL Albumin 4.3 (3.5-5.0) g/dL - Imaging Abdominal x-ray: report reviewed, image reviewed CT scan - abdomen: report reviewed, image reviewed Assessment and Plan (1) Acute pyelonephritis Current Visit: Yes Status: Acute Code(s): N10 - ACUTE PYELONEPHRITIS SNOMED Code(s): 82295996 (2) Calculus of ureter Current Visit: Yes Status: Acute Code(s): N20.1 - CALCULUS OF URETER SNOMED Code(s): 93694700 (3) Calculus of kidney Current Visit: Yes Status: Acute Code(s): N20.0 - CALCULUS OF KIDNEY SNOMED Code(s): 59415895 (4) Hydronephrosis with renal and ureteral calculous obstruction Current Visit: Yes Status: Acute Code(s): N13.2 - HYDRONEPHROSIS WITH RENAL AND URETERAL CALCULOUS OBSTRUCTION SNOMED Code(s): 834830576 Plan: The patient appears to have acute left pyelonephritis with sepsis complicated by a 1 cm obstructing left UPJ calculus. The computed tomography scan also shows larger left renal calculi. I had a lengthy discussion with the patient and her daughter. I have suggested she undergo emergent placement of a left ureteral stent to relieve the ureteral obstruction. She has received a dose of Rocephin, and cultures have been sent. Risks associated with stent placement were reviewed, including anesthesia, inability to successfully place the stent, and ureteral injury. In either of the 2 latter scenarios, placement of a left percutaneous nephrostomy tube would be required. Once the infection has resolved, she will likely require an elective left percutaneous nephrolithotomy to successfully remove her left renal calculi. Time with Patient: Greater than 30
[2020-10-13] MEDS: SODIUM CHLORIDE 0.9% 1,000 ML IV SCH (19:02)
[2020-10-13] MEDS ORDERED: ONDANSETRON 4 MG/2 ML VIAL ONE (19:25)
[2020-10-13] MEDS ORDERED: PROPOFOL 10 MG/ML 20 ML VIAL IV ONE (19:25)
[2020-10-13] MEDS ORDERED: fentaNYL (PF) 50 MCG/ML 2 ML AMP ONE (19:25)
[2020-10-13 19:30] LABS: Band Neutrophils % 13 %; Basophils # (M) 0.02 k/uL (0-0.2); Eosinophils # (M) 0.05 k/uL (0-0.7); Lymphocytes # (M) 0.15 k/uL (1.0-4.8); Neutrophils % (M) 74 %; Nucleated Red Blood Cells 0 /100 WBC (0-0); Total Cells Counted 100
[2020-10-13] MEDS ORDERED: IV FLUID CONTINUATION 1,000 ML IV ONE (19:30)
[2020-10-13] MEDS ORDERED: LIDOCAINE 2% GEL 30 ML TUBE URETHRAL ONE (19:44)
--- NOTE | 2020-10-13 20:02 | P.OP ---
Date of Procedure: 10/13/20 Preoperative Diagnosis: Left hydronephrosis secondary to left ureteral calculus Postoperative Diagnosis: Same Procedure(s) Performed: Cystoscopy, left ureteral stent insertion Anesthesia: MAC Surgeon: Dave Merrill Estimated Blood Loss (ml): 0 IV fluids (ml): 500 Pathology: other (Urine sent for culture and sensitivity) Condition: stable Disposition: PACU Indications for Procedure: The patient is an 85-year-old white female with a history of kidney stones, for which she has never required surgery. She was hospitalized with E. coli sepsis resulting from a UTI in August 2019. She currently takes Amoxicillin daily for UTI prophylaxis. This afternoon, she experienced left flank pain radiating to the lower abdomen, associated with nausea and vomiting. Urinalysis shows evidence of infection, and computed tomography scan shows left hydronephrosis due to a 1 cm left UPJ calculus. She is febrile and leukopenic, and given these signs suggestive of sepsis she comes for emergent stent placement. Operative Findings: Successful stent placement. Description of Procedure: The patient was taken to the operating room and placed in the dorsolithotomy position, with legs supported in Ney stirrups. The external genitalia was prepped and draped sterilely. The 30 lens was used to introduce the 22-[place] Stortz cystoscopic sheath through the urethra and into the bladder under direct vision. The bladder was examined in its entirety. Both ureteral orifices were of normal anatomic location and configuration. No tumors or foreign bodies were seen. An angle-tip 0.035 inch Guidewire was passed through the cystoscope. The left ureteral orifice was cannulated, and the Guidewire was slowly advanced up to the renal pelvis. A 26 cm, 6-[place] double-J ureteral stent was placed over the wire. Proper stent positioning was verified fluoroscopically and endoscopically. There was evidence of a "hydronephrotic palacio", as slightly cloudy urine drained through the stent. With the beak of the cystoscope immediately adjacent to the distal end of the stent, urine was collected through the cystoscope and sent for culture and sensitivity. The bladder was emptied and the cystoscope removed. The patient tolerated the procedure well was taken to the recovery room in stable condition.
[2020-10-13] MEDS ORDERED: SODIUM CHLORIDE 0.9% 1,000 ML IV ONE (20:36)
[2020-10-14] MEDS: SODIUM CHLORIDE 0.9% 1,000 ML IV SCH ×2 (06:17→19:51)
--- NOTE | 2020-10-14 08:01 | P.PN ---
Subjective Progress Note Date: 10/14/20 Should underwent cystoscopy with left ureteral stent placement yesterday by Dr. remy for an obstructing left ureteral stone, urinary tract infection with sepsis, pyonephrosis area and she feels better. Her vital signs are stable. I discussed with the patient and her daughter again the clinical situation and the need for follow-up. She will require stone and stent removal later date. Once the cultures are back she and she can be placed on oral antibiotic she can be discharged home and follow-up in our office. Objective - Vital Signs Vital signs: Vital Signs Temp 97.9 F 10/14/20 07:00 Pulse 85 10/14/20 07:00 Resp 16 10/14/20 07:00 BP 97/58 10/14/20 07:00 Pulse Ox 96 10/14/20 07:00 Intake & Output 10/13/20 10/14/20 10/14/20 18:59 06:59 18:59 Intake Total 600 Output Total 50 Balance 550 Weight 102.058 kg 102.058 kg Intake: IV 600 Output: Urine 50 Other: Voiding Method Bedpan Bedpan Incontinent Incontinent # Voids 1 - Labs CBC & Chem 7: 10/13/20 16:14 10/13/20 16:14 Labs: Abnormal Lab Results - Last 24 Hours (Table) 10/13/20 10/13/20 10/13/20 Range/Units 16:14 16:14 16:14 WBC 1.7 L (3.8-10.6) k/uL Plt Count 127 L (150-450) k/uL Lymphocytes # (Manual) 0.15 L (1.0-4.8) k/uL APTT 19.3 L (22.0-30.0) sec BUN (7-17) mg/dL Plasma Lactic Acid Jimenez (0.7-2.0) mmol/L Total Bilirubin (0.2-1.3) mg/dL AST (14-36) U/L ALT (4-34) U/L Urine Appearance Cloudy H (Clear) Urine Blood Large H (Negative) Urine Nitrite Positive H (Negative) Ur Leukocyte Esterase Large H (Negative) Urine RBC >182 H (0-5) /hpf Urine WBC 46 H (0-5) /hpf Urine Bacteria Rare H (None) /hpf 10/13/20 10/13/20 Range/Units 16:14 16:14 WBC (3.8-10.6) k/uL Plt Count (150-450) k/uL Lymphocytes # (Manual) (1.0-4.8) k/uL APTT (22.0-30.0) sec BUN 25 H (7-17) mg/dL Plasma Lactic Acid Jimenez 2.4 H* (0.7-2.0) mmol/L Total Bilirubin 1.4 H (0.2-1.3) mg/dL AST 56 H (14-36) U/L ALT 44 H (4-34) U/L Urine Appearance (Clear) Urine Blood (Negative) Urine Nitrite (Negative) Ur Leukocyte Esterase (Negative) Urine RBC (0-5) /hpf Urine WBC (0-5) /hpf Urine Bacteria (None) /hpf Microbiology - Last 24 Hours (Table) 10/13/20 16:14 Urine Culture - Preliminary Urine,Catheterized
--- NOTE | 2020-10-14 08:18 | FL ---
EXAMINATION TYPE: FL guidance operating room DATE OF EXAM: 10/13/2020 CLINICAL HISTORY: Obstructing left-sided stone. TECHNIQUE: Fluoroscopy. COMPARISON: CT abdomen and pelvis earlier today.. FINDINGS: Fluoroscopic guidance was provided during left ureter stent insertion procedure performed by urologist. A total of approximately 20 seconds of fluoroscopic time was utilized during the proce dure and single spot images was acquired. Single intraoperative images shows proximal portion of left ureter stent. IMPRESSION: As Above.
[2020-10-14 08:54] LABS: HCT 37.8 % (37.2-46.3); HGB 12.2 g/dL (12.0-15.0); MCH 31.9 pg (27.0-32.0); MCHC 32.3 g/dL (32.0-37.0); Mean Platelet Volume 9.6 fL (9.5-12.2); Platelet Count 123 X 10*3/uL (140-440); RBC 3.82 X 10*6/uL (4.10-5.20); RDW 13.6 % (11.5-14.5); WBC 16.97 X 10*3/uL (4.50-10.00)
[2020-10-14 09:25] LABS: African American GFR (CKD) 67.1 (60.0-200.0); Albumin 3.4 g/dL (3.80-4.90); Albumin/Globulin Ratio 1.62 (1.60-3.17); Anion Gap 6.1 mmol/L (4.00-12.00); BUN/Creat Ratio 28.89 Ratio (12.00-20.00); Calcium 8.8 mg/dL (8.7-10.3); Carbon Dioxide 24.9 mmol/L (21.6-31.8); Globulin 2.1 g/dL (1.6-3.3); Non-African American GFR(CKD) 57.9 (60.0-200.0); Potassium 3.6 mmol/L (3.5-5.5); Total Protein 5.5 g/dL (6.2-8.2)
[2020-10-14 11:28] LABS: Basophils # (M) 0 X 10*3/uL (0.00-0.10); Eosinophils # (M) 0 X 10*3/uL (0.04-0.35); Lymphocytes # (M) 0.68 X 10*3/uL (0.90-5.00); Metamyelocytes % 4 % (0-0); Monocytes # (M) 0.51 X 10*3/uL (0.20-1.00); Neutrophils % (M) 89 %
[2020-10-14] MEDS ORDERED: CEFEPIME 2 GM in SODIUM CHLORIDE 0.9% 100 ML IVPB ONE (21:00)
--- NOTE | 2020-10-15 06:06 | CONS ---
CONSULTATION DATE OF SERVICE: 10/14/2020 REASON FOR CONSULTATION: Bacteremia. HISTORY OF PRESENT ILLNESS: The patient is an 85-year-old female who was brought in yesterday afternoon for evaluation of the lower back/flank area pain that started 2 hours before presentation to the hospital. The pain has been mostly acute. Initially started on the right side and subsequent moved to the left flank area. Patient described intense abdominal tenderness with associated vomiting and the patient was noticed to be confused. With these symptoms, the patient was brought into the ER. On arrival to the ER, the patient did have a low-grade fever of 100 repeat to fever 100.5 degrees Fahrenheit. The patient did have a leukopenia with white count 1.7. The patient did have a positive UA. A CT of the abdomen and pelvis with evidence of left-sided hydronephrosis. The patient was taken to the OR last night in this patient who is status post cystoscopy with left ureteral stent placement. The patient did have blood cultures drawn which came back positive with Gram-negative bacilli that prompted this infectious disease consultation. At the time of evaluation this afternoon, the patient's pain has decreased in intensity. Patient denies any further nausea, vomiting. No chest pain, shortness of breath, cough and no diarrhea. REVIEW OF SYSTEMS: Positive points have been mentioned in HPI. Rest of systems are negative. PAST MEDICAL HISTORY: Atrial fibrillation, gastroesophageal reflux disease, hypertension, hiatal hernia, UTI. PAST SURGICAL HISTORY: Adenoidectomy, cholecystectomy, hysterectomy, tonsillectomy, bilateral cataract surgery. SOCIAL HISTORY: No history of smoking, drinking or drug use. FAMILY HISTORY: Father with history of cancer. ALLERGIES: SULFA. MEDICATIONS: The patient is currently on Rocephin 1 g daily. She is on morphine sulfate, Narcan, Zofran, and IV fluid. PHYSICAL EXAMINATION: VITAL SIGNS: Blood pressure is 97/58 with a pulse of 85, temperature 97.9, T-max 100.5. She is 96% on room air. GENERAL DESCRIPTION: The patient is an elderly female lying in bed in no distress. No tachypnea or accessory muscles of respiration use. HEENT: Examination shows no pallor or scleral icterus. Oral mucous membrane is dry. NECK: Trachea central. No thyromegaly. LUNGS: Unlabored breathing, decreased breath sounds at the bases. No wheeze or crackles. HEART: S1, S2. Regular rate and rhythm. ABDOMEN: Soft, no tenderness. No guarding or rigidity. EXTREMITIES: No edema of the feet. SKIN: No rash or mass palpable. NEUROLOGICAL: The patient is awake, alert, oriented times three. Mood and affect normal. LABS: Hemoglobin is 12.1, white count 16.97, BUN of 26, creatinine 0.9. Urine was positive. Lerner PCR was negative. Blood culture with Gram-negative bacilli. DIAGNOSTIC IMPRESSION.: Patient presented to the hospital with sepsis in this patient who did have fever, elevated white count, initially leukopenia, now with evidence of Gram-negative bacteremia, source is complicated urinary tract infection in this patient who did have left-sided ureteral stone and hydronephrosis status post cystoscopy and left ureteral stent placement. Likely from enteric gram-negative pathogen in this patient with history of recurrent urinary tract infection and on prophylactic amoxicillin therapy. We will need to cover for more resistant gram-negative bacteremia such as Pseudomonas or Enterobacter. PLAN: 1. Discontinue Rocephin. 2. Start the patient on cefepime 2 grams q.12 hours. 3. We will follow on her clinical condition and further adjust medication if needed. Thank you for this consultation. Will follow this patient along with you. MMODL / IJN: [id number] /
[2020-10-15] MEDS: CEFEPIME 2 GM in SODIUM CHLORIDE 0.9% 100 ML IVPB SCH ×2 (08:50→22:28)
--- NOTE | 2020-10-15 13:40 | P.PN ---
Subjective Progress Note Date: 10/15/20 The patient was seen and evaluated by Dr. remy or a stent was placed for an obstructing ureteral stone, urinary tract infection with sepsis and pyelonephrosis. Her blood cultures are growing gram-negative rods. Once the cultures are back she should be sent home on oral antibiotics. I will see the patient in follow-up that she will need a percutaneous nephrostolithotomy to remove the ureteral as well as large volume of renal stones. Objective - Vital Signs Vital signs: Vital Signs Temp 97.7 F 10/15/20 07:00 Pulse 105 H 10/15/20 08:00 Resp 18 10/15/20 08:00 BP 156/79 10/15/20 07:00 Pulse Ox 96 10/15/20 07:00 Intake & Output 10/14/20 10/15/20 10/15/20 18:59 06:59 18:59 Intake Total 1254 620 Balance 1254 620 Intake: Intake, IV Titration 900 Amount Sodium Chloride 0.9% 1, 800 000 ml @ 80 mls/hr IV . [id number] Rx#:[id number] cefTRIAXone 1 gm In 100 Sodium Chloride 0.9% 50 ml @ 100 mls/hr IVPB ONCE STA Rx#:[id number] Oral 354 620 Other: Voiding Method Toilet Toilet Toilet Incontinent Incontinent Incontinent # Voids 2 2 1 # Bowel Movements 1 1 - Labs CBC & Chem 7: 10/14/20 05:33 10/14/20 05:33 Labs: Abnormal Lab Results - Last 24 Hours (Table) 10/15/20 Range/Units 05:30 C-Reactive Protein 16.0 H (0.0-0.8) mg/dL Microbiology - Last 24 Hours (Table) 10/13/20 19:56 Urine Culture - Final Urine,Voided 10/13/20 18:40 Blood Culture Gram Stain - Preliminary Blood Blood Culture - Preliminary Gram Neg Bacilli 10/13/20 16:14 Urine Culture - Preliminary Urine,Catheterized Gram Neg Bacilli 10/13/20 18:30 Blood Culture - Preliminary Blood No Growth after 24 hours 10/13/20 18:40 Blood Culture - Final Blood
--- NOTE | 2020-10-15 15:07 | P.PN ---
Subjective Progress Note Date: 10/15/20 This is an 85-year-old female admitted with sepsis secondary to acute UTI, obstructing ureteral stone, pyelonephritis and bacteremia. Infectious disease consulted with antibiotics adjusted to cefepime, blood in urine cultures reporting gram-negative bacilli. T-max 100.5. Sitting up at bedside, eating br eakfast. Denies nausea vomiting or diarrhea. Denies abdominal pain, left flank remains tender. Denies chest pain, palpitations or shortness of breath. Objective - Vital Signs Vital signs: Vital Signs Temp 97.7 F 10/15/20 07:00 Pulse 105 H 10/15/20 08:00 Resp 18 10/15/20 08:00 BP 156/79 10/15/20 07:00 Pulse Ox 96 10/15/20 07:00 Intake & Output 10/14/20 10/15/20 10/15/20 18:59 06:59 18:59 Intake Total 1254 620 236 Balance 1254 620 236 Intake: Intake, IV Titration 900 Amount Sodium Chloride 0.9% 1, 800 000 ml @ 80 mls/hr IV . [id number] [facility] Rx#:[id number] cefTRIAXone 1 gm In 100 Sodium Chloride 0.9% 50 ml @ 100 mls/hr IVPB ONCE STA Rx#:[id number] Oral 354 620 236 Other: Voiding Method Toilet Toilet Toilet Incontinent Incontinent Incontinent # Voids 2 2 1 # Bowel Movements 1 1 - Exam PHYSICAL EXAM: VITAL SIGNS: As above GENERAL: Sitting up at side of bed, no acute distress HEENT: Conjunctivae normal. Oral mucosa moist NECK: No JVD. No thyroid enlargement. CARDIOVASCULAR: S1, S2 regular. No murmur RESPIRATION: Breath sounds diminished in the bases. No rhonchi or crackles. ABDOMEN: Soft, nondistended, left flank tenderness . No guarding. no masses palpable. Positive Bowel sounds. LEGS: No edema. no swelling PSYCHIATRY: Alert and oriented X3, mood and affect normal. NERVOUS SYSTEM: Cranial N 2-12 grossly normal. Moves all 4 limbs. Diffuse weak ness, No focal deficits. Strength and sensation grossly intact.. Skin: Warm and dry, no rash - Labs CBC & Chem 7: 10/14/20 05:33 10/14/20 05:33 Labs: Abnormal Lab Results - Last 24 Hours (Table) 10/15/20 Range/Units 05:30 C-Reactive Protein 16.0 H (0.0-0.8) mg/dL Microbiology - Last 24 Hours (Table) 10/13/20 19:56 Urine Culture - Final Urine,Voided 10/13/20 18:40 Blood Culture Gram Stain - Preliminary Blood Blood Culture - Preliminary Gram Neg Bacilli 10/13/20 16:14 Urine Culture - Preliminary Urine,Catheterized Gram Neg Bacilli 10/13/20 18:30 Blood Culture - Preliminary Blood No Growth after 24 hours 10/13/20 18:40 Blood Culture - Final Blood Assessment and Plan Assessment: Sepsis secondary to gram-negative bacteremia related to complicated acute UTI, gram-negative bacilli, in a patient with left-sided ureteral stone and history of recurrent UTIs on prophylactic amoxicillin. Leukopenia initially ,present on admission, secondary to the above Left-sided ureteral stone and hydronephrosis status post cystoscopy and left ureteral stent placement Dehydration Chronic atrial fibrillation,patient not on any beta blockers or anticoagulation therapy, using homeopathic methods. Gastroesophageal reflux disease History of recurrent herpes labialis Plan: Continue on current medication regime ,monitoring and symptomatic treatment. Maintain gentle IV fluid hydration and antibiotics as per ID. urine and blood cultures finalizing. Protonix added for GI prophylaxis The impression and plan of care has been dictated as directed. : I performed a history and examination of this patient, discussed the same with the dictator. I agree with the dictator's note ,documented as a scribe. Any additional findings or plans will be noted.
[2020-10-15] MEDS: SODIUM CHLORIDE 0.9% 1,000 ML IV SCH ×2 (16:27→22:28)
[2020-10-15] MEDS: PANTOPRAZOLE 40 MG/10 ML VIAL IVP SCH (16:29)
--- NOTE | 2020-10-15 23:14 | PN ---
PROGRESS NOTE DATE OF SERVICE: 10/15/2020 REASON FOR FOLLOWUP: E coli urinary tract infection with secondary bacteremia. INTERVAL HISTORY: The patient is currently afebrile. The patient is breathing comfortably. The patient denies having any chest pain, shortness of breath or cough. No nausea, no vomiting, no abdominal pain or diarrhea. PHYSICAL EXAMINATION: Blood pressure 152/82 with a pulse of 109, temperature 98.2. She is 96% on room air. General description is an elderly female lying in bed in no distress. RESPIRATORY SYSTEM: Unlabored breathing. Clear to auscultation anteriorly. HEART: S1, S2. Regular rate and rhythm. ABDOMEN: Soft. No tenderness. LABS: No new labs have been obtained today. DIAGNOSTIC IMPRESSION AND PLAN: Patient with an Escherichia coli urinary tract infection with secondary bacteremia in this patient who did have a complicated UTI, status post left ureteral stent placement, on cefepime. Plan to finish therapy with oral Cipro and close outpatient followup. MMODL / IJN: [id number] / MTDD
[2020-10-16] MEDS: CEFEPIME 2 GM in SODIUM CHLORIDE 0.9% 100 ML IVPB SCH (07:53)
[2020-10-16] MEDS: PANTOPRAZOLE 40 MG/10 ML VIAL IVP SCH (07:54)
[2020-10-16 09:41] VITALS: RESP 18
[2020-10-16 10:27] LABS: Basophils # (A) 0.04 X 10*3/uL (0.00-0.10); Basophils % (A) 0.4 %; Eosinophils # (A) 0.14 X 10*3/uL (0.04-0.35); Eosinophils % (A) 1.4 %; HCT 34.3 % (37.2-46.3); Lymphocytes # (A) 0.98 X 10*3/uL (0.90-5.00); Lymphocytes % (A) 10.1 %; MCH 32.1 pg (27.0-32.0); MCHC 32.1 g/dL (32.0-37.0); Mean Platelet Volume 10.7 fL (9.5-12.2); Monocytes % (A) 5.1 %; Neutrophils # (A) 7.94 X 10*3/uL (1.80-7.70); Neutrophils % (A) 81.9 %; Platelet Count 116 X 10*3/uL (140-440); RBC 3.43 X 10*6/uL (4.10-5.20); RDW 13.4 % (11.5-14.5); WBC 9.71 X 10*3/uL (4.50-10.00)
[2020-10-16 11:07] LABS: African American GFR (CKD) 90.9 (60.0-200.0); BUN/Creat Ratio 31.43 Ratio (12.00-20.00); Calcium 8.9 mg/dL (8.7-10.3); Non-African American GFR(CKD) 78.5 (60.0-200.0)
--- NOTE | 2020-10-16 14:33 | P.PN ---
Subjective Progress Note Date: 10/16/20 This is an 85-year-old female admitted with sepsis secondary to acute UTI, obstructing ureteral stone, pyelonephritis and bacteremia. Infectious disease consulted with antibiotics adjusted to cefepime, blood in urine cultures reporting gram-negative bacilli. T-max 100.5. Sitting up at bedside, eating br eakfast. Denies nausea vomiting or diarrhea. Denies abdominal pain, left flank remains tender. Denies chest pain, palpitations or shortness of breath. 10/16/2020 maintained on cefepime for E. coli UTI with secondary bacteremia. Afebrile, normal WBC. Repeat blood culture in progress. Good diet intake. Ambulating with walker in room, tolerated exertion well. Denies weakness, shakiness or exertional shortness of breath. Denies pain, denies chest pain, palpitations or shortness of breath. Objective - Vital Signs Vital signs: Vital Signs Temp 98.0 F 10/16/20 07:49 Pulse 97 10/16/20 08:00 Resp 18 10/16/20 08:00 BP 146/101 10/16/20 07:49 Pulse Ox 96 10/16/20 07:49 Intake & Output 10/15/20 10/16/20 10/16/20 18:59 06:59 18:59 Intake Total 236 1610 300 Balance 236 1610 300 Intake: Intake, IV Titration 960 Amount Sodium Chloride 0.9% 1, 960 000 ml @ 80 mls/hr IV . [id number] [facility] Rx#:[id number] Oral 236 650 300 Other: Voiding Method Toilet Toilet Toilet Incontinent Incontinent Incontinent # Voids 1 3 # Bowel Movements 1 - Exam PHYSICAL EXAM: VITAL SIGNS: As above. GENERAL: Sitting up in bed, no acute distress HEENT: Conjunctivae normal. Oral mucosa moist NECK: No JVD. No thyroid enlargement. CARDIOVASCULAR: S1, S2 regular. No murmur RESPIRATION: Breath sounds diminished in the bases. No rhonchi or crackles. ABDOMEN: Soft, nondistended, left flank tenderness . No guarding. no masses palpable. Positive Bowel sounds. LEGS: No edema. no swelling PSYCHIATRY: Alert and oriented X3, mood and affect normal. NERVOUS SYSTEM: Cranial N 2-12 grossly normal. Moves all 4 limbs. No focal deficits. Strength and sensation grossly intact. Skin: Warm and dry, no rash - Labs CBC & Chem 7: 10/16/20 05:47 10/16/20 05:47 Labs: Abnormal Lab Results - Last 24 Hours (Table) 10/16/20 10/16/20 Range/Units 05:47 05:47 RBC 3.43 L (4.10-5.20) X 10*6/uL Hgb 11.0 L (12.0-15.0) g/dL Hct 34.3 L (37.2-46.3) % MCV 100.0 H (80.0-97.0) fL MCH 32.1 H (27.0-32.0) pg Plt Count 116 L (140-440) X 10*3/uL Immature Gran # 0.11 H (0.00-0.04) X 10*3/uL Neutrophils # 7.94 H (1.80-7.70) X 10*3/uL BUN/Creatinine Ratio 31.43 H (12.00-20.00) Ratio Microbiology - Last 24 Hours (Table) 10/13/20 18:40 Blood Culture Gram Stain - Final Blood Blood Culture - Final Escherichia coli 10/15/20 05:30 Blood Culture - Preliminary Blood No Growth after 24 hours 10/13/20 18:30 Blood Culture - Preliminary Blood No Growth after 48 hours 10/13/20 16:14 Urine Culture - Final Urine,Catheterized Escherichia coli 10/14/20 14:54 Blood Culture - Preliminary Blood No Growth after 24 hours 10/14/20 14:40 Blood Culture - Preliminary Blood No Growth after 24 hours 10/13/20 19:56 Urine Culture - Final Urine,Voided Assessment and Plan Assessment: Sepsis secondary to gram-negative bacteremia related to complicated acute UTI, gram-negative bacilli, in a patient with left-sided ureteral stone and history of recurrent UTIs on prophylactic amoxicillin. Leukopenia initially ,present on admission, secondary to the above Left-sided ureteral stone and hydronephrosis status post cystoscopy and left ureteral stent placement Dehydration Chronic atrial fibrillation,patient not on any beta blockers or anticoagulation therapy, using homeopathic methods. Gastroesophageal reflux disease History of recurrent herpes labialis Plan: Continue on current medication regime ,monitoring and symptomatic treatment. Significant clinical improvement.Discharge planning in progress pending resulting repeat blood culture. Patient and daughter updated on plan of care and discharge planning. The impression and plan of care has been dictated as directed. : I performed a history and examination of this patient, discussed the same with the dictator. I agree with the dictator's note ,documented as a scribe. Any additional findings or plans will be noted.
[2020-10-16] MEDS ORDERED: ACETAMINOPHEN TAB 325 MG TAB PO PRN (14:35)
--- NOTE | 2020-10-16 15:43 | PN ---
PROGRESS NOTE DATE OF SERVICE: 10/16/2020. REASON FOR FOLLOWUP: E coli complicated urinary tract infection and bacteremia. INTERVAL HISTORY: The patient is currently afebrile. Patient is breathing comfortably. The patient denies having any chest pain, shortness of breath or cough. No nausea, no vomiting. No abdominal pain, no diarrhea. PHYSICAL EXAMINATION: Blood pressure is 146/100, pulse 97, temperature 98. She 96% on room air. General description is an elderly female lying in bed in no distress. RESPIRATORY SYSTEM: Unlabored breathing, clear to auscultation anteriorly. HEART: S1, S2. Regular rate and rhythm. ABDOMEN: Soft, no tenderness. LABS: Hemoglobin is 11, white count 9.71, BUN of 22, creatinine 0.7. DIAGNOSTIC IMPRESSION AND PLAN: Patient with Escherichia coli complicated urinary tract infection with secondary bacteremia. Overall improvement on cefepime. Finish therapy with oral Cipro and close outpatient followup. MMODL / IJN: [id number] /
[2020-10-16 16:26] VITALS: BP 148/78; PULSE 77; TEMP 98.1
--- NOTE | 2020-11-04 21:09 | P.DS ---
Providers Date of admission: 10/13/20 17:56 Expected date of discharge: 10/16/20 Attending physician: Karlo Rodriguez MD Consults: 10/13/20 17:53 Consult Physician Urgent Consulting Provider: Dave Merrill Consult Reason/Comments: nephrolithiasis, UTI Do you want consulting provider notified?: Already Contacted 10/14/20 13:57 Consult Physician Routine Consulting Provider: Nahomy Walker Consult Reason/Comments: Bacteremia,UTI Do you want consulting provider notified?: Yes Primary care physician: Jill Archibald Hospital Course: Final Diagnoses: Sepsis secondary to gram-negative bacteremia related to complicated acute UTI, E. coli, in a patient with left-sided ureteral stone and history of recurrent UTIs on prophylactic amoxicillin. Leukopenia initially ,present on admission, secondary to the above Left-sided ureteral stone and hydronephrosis status post cystoscopy and left ureteral stent placement Dehydration Chronic atrial fibrillation,patient not on any beta blockers or anticoagulation therapy, using homeopathic methods. Gastroesophageal reflux disease History of recurrent herpes labialis Hospital course:This is an 85-year-old female admitted with sepsis secondary to acute UTI, obstructing ureteral stone, pyelonephritis and bacteremia. Infectious disease consulted with antibiotics adjusted to cefepime, blood in urine cultures reporting gram-negative bacilli. T-max 100.5. Sitting up at bedside, eating breakfast. Denies nausea vomiting or diarrhea. Denies abdominal pain, left flank remains tender. Denies chest pain, palpitations or shortness of breath. 10/16/2020 maintained on cefepime for E. coli UTI with secondary bacteremia. Afebrile, normal WBC. Repeat blood culture in progress. Good diet intake. Ambulating with walker in room, tolerated exertion well. Denies weakness, shakiness or exertional shortness of breath. Denies pain, denies chest pain, palpitations or shortness of breath. Significant clinical improvement. Preliminary repeated blood culture reporting no growth at 24 hours. Cleared by infectious disease for discharge. Patient will be discharged home in a stable condition with guarded prognosis. Microbiology 10/13/20 18:40 Blood Blood Culture Gram Stain - Final 10/13/20 18:40 Blood Blood Culture - Final Escherichia coli 10/15/20 05:30 Blood Blood Culture - Preliminary No Growth after 24 hours 10/13/20 18:30 Blood Blood Culture - Preliminary No Growth after 48 hours 10/13/20 16:14 Urine,Catheterized Urine Culture - Final Escherichia coli 10/14/20 14:54 Blood Blood Culture - Preliminary No Growth after 24 hours 10/14/20 14:40 Blood Blood Culture - Preliminary No Growth after 24 hours 10/13/20 19:56 Urine,Voided Urine Culture - Final 10/13/20 18:40 Blood Blood Culture - Final The impression and plan of care has been dictated as directed. : I performed a history and examination of this patient, discussed the same with the dictator. I agree with the dictator's note ,documented as a scribe. Any additional findings or plans will be noted. Patient Condition at Discharge: Stable Plan - Discharge Summary New Discharge Prescriptions: New Ciprofloxacin HCl [Cipro] 500 mg PO Q12H 10 Days #20 tab Famotidine [Pepcid] 20 mg PO BID #28 tablet Discontinued Amoxicillin 250 mg PO DAILY Discharge Medication List Ciprofloxacin HCl [Cipro] 500 mg PO Q12H 10 Days #20 tab 10/16/20 [Rx] Famotidine [Pepcid] 20 mg PO BID #28 tablet 10/16/20 [Rx] Follow up Appointment(s)/Referral(s): Dave Merrill MD [STAFF PHYSICIAN] - 1 Week (Patient actually should see Dr. Pelayo) Jill Archibald DO [Primary Care Provider] - 3 Days
== END 2020-10-16 16:53 | disposition home or self-care (01) | DRG 854 ==
LOC: EC 15:44 → 5NMEDONC 17:56 → 6NMEDSUR 18:56
PROVIDERS: ADMIT Family Medicine; ATTEND Family Medicine
PROC: 0T778DZ Dilation of Left Ureter with Intraluminal Device, Via Natural or Artificial Opening Endoscopic (ICD-10-PCS; principal; 2020-10-13 19:13)
DX: A41.51 Sepsis due to Escherichia coli [E. coli] (principal); I48.20 Chronic atrial fibrillation, unspecified; N13.6 Pyonephrosis; K92.0 Hematemesis; Z20.822 Contact with and (suspected) exposure to COVID-19; N20.0 Calculus of kidney; R32 Unspecified urinary incontinence; I10 Essential (primary) hypertension; K21.9 Gastro-esophageal reflux disease without esophagitis; K44.9 Diaphragmatic hernia without obstruction or gangrene; I83.90 Asymptomatic varicose veins of unspecified lower extremity; M19.90 Unspecified osteoarthritis, unspecified site; Z79.899 Other long term (current) drug therapy; Z87.442 Personal history of urinary calculi; Z87.440 Personal history of urinary (tract) infections; Z98.42 Cataract extraction status, left eye; Z98.41 Cataract extraction status, right eye; Z90.89 Acquired absence of other organs; Z90.710 Acquired absence of both cervix and uterus; Z90.49 Acquired absence of other specified parts of digestive tract; Z87.19 Personal history of other diseases of the digestive system; Z87.42 Personal history of other diseases of the female genital tract; Z86.19 Personal history of other infectious and parasitic diseases; Z87.09 Personal history of other diseases of the respiratory system; Z98.890 Other specified postprocedural states; Z88.2 Allergy status to sulfonamides; E86.0 Dehydration; Z80.9 Family history of malignant neoplasm, unspecified; Z82.5 Family history of asthma and other chronic lower respiratory diseases
CPT/HCPCS: 36415; 51701; 70450; 71045; 74176; 80048; 80053; 81001; 82150; 83605; 83690; 84484; 85025; 85610; 85730; 86140; 87040; 87077; 87086; 87186; 87635; 93005; 96361; 96374; 99285

== ENCOUNTER → 2020-11-06 | Outpatient (CLI) | payer MEDICARE, BC ==
[2020-11-06 14:55] LABS: Basophils # (A) 0.1 k/uL (0-0.2); Basophils % (A) 1 %; Eosinophils # (A) 0.3 k/uL (0-0.7); Eosinophils % (A) 7 %; HCT 42.7 % (34.0-46.0); HGB 14.1 gm/dL (11.4-16.0); Lymphocytes # (A) 1.2 k/uL (1.0-4.8); Lymphocytes % (A) 26 %; MCH 32.4 pg (25.0-35.0); MCHC 33.1 g/dL (31.0-37.0); MCV 97.8 fL (80.0-100.0); Mean Platelet Volume 6.8; Monocytes # (A) 0.3 k/uL (0-1.0); Monocytes % (A) 6 %; Neutrophils # (A) 2.6 k/uL (1.3-7.7); Neutrophils % (A) 59 %; Platelet Count 202 k/uL (150-450); RBC 4.36 m/uL (3.80-5.40); RDW 12.5 % (11.5-15.5); WBC 4.4 k/uL (3.8-10.6)
[2020-11-06 15:05] LABS: Appearance,Urine Cloudy (Clear); Bacteria,Urine Rare /hpf; Bilirubin,Urine Negative (Negative); Blood,Urine Large (Negative); Color,Urine Yellow; Glucose,Urine (UA) Negative (Negative); Ketones,Urine Negative (Negative); Leukocyte Esterase,Urine Large (Negative); Mucus,Urine Occasional /hpf; Nitrite,Urine Negative (Negative); Protein,Urine 1+ (Negative); RBC,Urine >182 /hpf (0-5); Specific Gravity,Urine 1.018 (1.001-1.035); Squamous Epithelial Cell,Urine 4 /hpf (0-4); Urobilinogen,Urine <2.0 mg/dL (<2.0); WBC,Urine 45 /hpf (0-5)
[2020-11-06 15:06] LABS: ALT 21 U/L (4-34); AST 34 U/L (14-36); African American GFR (CKD) >90 (>60 ml/min/1.73 sqM); Albumin 4.5 g/dL (3.5-5.0); Alkaline Phosphatase 64 U/L (38-126); Anion Gap 9 mmol/L; Blood Urea Nitrogen 18 mg/dL (7-17); Calcium 9.8 mg/dL (8.4-10.2); Carbon Dioxide 28 mmol/L (22-30); Chloride 102 mmol/L (98-107); Glucose 97 mg/dL (74-99); Non-African American GFR(CKD) 79 (>60 ml/min/1.73 sqM); Potassium 4.3 mmol/L (3.5-5.1); Sodium 139 mmol/L (137-145); Total Bilirubin 0.7 mg/dL (0.2-1.3)
== END | disposition home or self-care (01) ==
LOC: LABPAT 14:03
PROVIDERS: ATTEND Urology
DX: Z01.818 Encounter for other preprocedural examination (principal); N20.0 Calculus of kidney
CPT/HCPCS: 80053; 81001; 85025; 86850; 86900; 86901; 87086

== ENCOUNTER 2020-11-13 06:31 | Observation (INO) | payer MEDICARE, BC ==
[2020-11-11 10:34] VITALS: BMI 33.2
--- NOTE | 2020-11-12 11:05 | P.GSHP ---
History of Present Illness H&P Date: 11/12/20 85 yo female patient of Dr Merrill. He placed a stent on the left for an obstructing infected ureteral stone in the upj. SHe also has lare left renal stones. SHe thus comes for a left pcnl to remove the ureteral as well as the renal stones. - Constitutional Constitutional: Denies chills, Denies fever - EENT Eyes: denies blurred vision, denies pain Ears, nose, mouth and throat: Denies headache, Denies sore throat - Cardiovascular Cardiovascular: Denies chest pain, Denies shortness of breath - Respiratory Respiratory: Denies cough, Denies 7 - Gastrointestinal Gastrointestinal: Denies abdominal pain, Denies diarrhea, Denies nausea, Denies vomiting - Genitourinary (Female) Genitourinary: Denies dysuria, Denies hematuria - Genitourinary (Male) Genitourinary: Denies dysuria, Denies hematuria - Musculoskeletal Musculoskeletal: Denies myalgias - Integumentary Integumentary: Denies pruritus, Denies rash - Neurological Neurological: Denies numbness, Denies weakness - Psychiatric Psychiatric: Denies anxiety, Denies depression - Endocrine Endocrine: Denies fatigue, Denies weight change Past Medical History Past Medical History: Atrial Fibrillation, GERD/Reflux, Hearing Disorder / Deafness, Hypertension Additional Past Medical History / Comment(s): Hard of hearing. Current left kidney stones. HIATAL HERNIA, INCONTINENCE OF URINE, WEARS A PAD, VARICOSE VEINS. History of Any Multi-Drug Resistant Organisms: None Reported Past Surgical History: Adenoidectomy, Cholecystectomy, Tonsillectomy Additional Past Surgical History / Comment(s): EXCISION OF BILATERAL CATARACTS. PARTIAL HYSTERECTOMY-STILL HAS 1 OVARY. EGD. Cystoscopy with stent. Past Anesthesia/Blood Transfusion Reactions: No Reported Reaction Additional Past Anesthesia/Blood Transfusion Reaction / Comment(s): NEVER HAD HAD TRASFUSIONS Past Psychological History: No Psychological Hx Reported Smoking Status: Never smoker Past Alcohol Use History: None Reported Past Drug Use History: None Reported - Past Family History Father History Unknown: Yes Family Medical History: Cancer Additional Family Medical History / Comment(s): Colon Cancer. Mother Additional Family Medical History / Comment(s): Mother was in good health and at 93. Brother(s) Additional Family Medical History / Comment(s): Kidney removal. Daughter(s) Family Medical History: No Reported History Son(s) Family Medical History: Asthma, Sleep Apnea/CPAP/BIPAP Medications and Allergies Home Medications Medication Instructions Recorded Confirmed Type Aspirin [Adult Low Dose Aspirin EC] 81 mg PO DAILY 11/11/20 11/11/20 History Allergies Allergy/AdvReac Type Severity Reaction Status Date / Time Sulfa (Sulfonamide Allergy Unknown Verified 11/11/20 10:16 Antibiotics) Surgical - Exam - General well developed, well nourished, no distress - Eyes PERRL - ENT no hearing loss - Neck no masses, trachea midline - Respiratory normal expansion, normal respiratory effort - Cardiovascular Rhythm: regular - Abdomen Abdomen: soft, non tender - Integumentary no rash, no growths - Neurologic normal coordination, normal sensation - Musculoskeletal normal gait, normal posture - Psychiatric oriented to person, oriented to place, speech is normal, memory intact Results - Imaging CT scan - abdomen: report reviewed, image reviewed CT scan - pelvis: report reviewed, image reviewed Assessment and Plan Assessment: Impression: Left renal and ureteral stones left, large Plan: PCNL left, remove stent left.
[~2020-11-13 06:31] MED LIST: AMPICILLIN 1,000 MG in SODIUM CHLORIDE 0.9% 50 ML IVPB PRN; DEXAMETHASONE SOD PHOSPHATE 4 MG/ML 1 ML VIAL IV ONE; GENTAMICIN IVPB PRN; LIDOCAINE 1% (10MG/ML) FOR IV START INTRADERMA PRN; ONDANSETRON 4 MG/2 ML VIAL IVP ONE; SODIUM CHLORIDE 0.9% IVPB PRN
[2020-11-13] MEDS ORDERED: LACTATED RINGERS 1,000 ML IV ONE (07:50)
[2020-11-13] MEDS ORDERED: SUCCINYLCHOLINE CHLORIDE 100 MG/5 ML SYR IV ONE (07:56)
[2020-11-13] MEDS ORDERED: LIDOCAINE 1% INJ 10MG/ML (20 ML MDV) ONE (07:56)
[2020-11-13] MEDS ORDERED: PROPOFOL 10 MG/ML 20 ML VIAL IV ONE (07:56)
[2020-11-13] MEDS ORDERED: IOPAMIDOL-370 50ML BTL MISCELLANE ONE (08:00)
--- NOTE | 2020-11-13 08:29 | XR ---
EXAMINATION TYPE: XR KUB DATE OF EXAM: 11/13/2020 COMPARISON: 08/19/2019 INDICATION: Renal stones TECHNIQUE: Single view abdomen frontal supine view FINDINGS: There is a normal bowel gas pattern. Psoas margins are normal. No organomegaly is present. Multiple bilateral calcifications are present. The largest on the right measures 0.5 cm On the left there is a 2.7 cm calcification at the inferior pole. An adjacent 1.2 cm calcification is present. There are additional smaller calcifications including a 0.9 cm calcification in the left re nal pelvis. Multiple phleboliths are within the pelvis. Distal ureteral stones may be difficult to ex clude. IMPRESSION: 1. Multiple bilateral renal stones largest are on the left
[2020-11-13] MEDS ORDERED: ONDANSETRON 4 MG/2 ML VIAL IVP PRN (10:32)
[2020-11-13] MEDS ORDERED: ACETAMINOPHEN TAB 325 MG TAB PO PRN (10:32)
[2020-11-13] MEDS ORDERED: MAG HYDROX/AL HYDROX/SIMETH 30 ML CUP PO PRN (10:32)
[2020-11-13] MEDS ORDERED: NALOXONE 0.4 MG/ML 1 ML VIAL IV PRN (10:33)
--- NOTE | 2020-11-13 10:41 | P.OP ---
Date of Procedure: 11/13/20 Preoperative Diagnosis: Infected left renal stones, large Postoperative Diagnosis: Same, vaginal prolapse Procedure(s) Performed: Cystoscopy, left ureteroscopy and placement of occluding balloon catheter, percutaneous nephrostolithotomy with ultrasound and laser lithotripsy. Placement was 10-Moldovan J nephrostomy Anesthesia: JARETH Surgeon: Caden Pelayo Estimated Blood Loss (ml): 100 Pathology: other (Stone) Condition: stable Disposition: PACU Indications for Procedure: The patient is 85. She was in the hospital recently for an obstructing left ureteral stone and Dr. remy had to place a stent to relieve the obstruction and drain the left kidney. He has a large collection of stones in the left lower pole calyx greater than 2 cm of. She has a 1 cm UPJ stone she comes for percutaneous nephrostolithotomy Description of Procedure: The patient is brought to the operating suite. On the transport [facility] she's given a general endotracheal anesthesia. She's placed in a frog position with sterile prep and drape. Cystoscopy of the Foroblique lens and 21-Moldovan sheath was performed the double-J catheters grasped and removed. The ureteral orifices easily identified. I attempted to intubate the orifice but due to complete vaginal prolapse I have a difficult time. I reduced the prolapse with Jenny sponges and then still unable to pass the left ureteral catheter on the transport [facility] Patient is placed on the operating table in a supine position she is in place in the lithotomy position with a reprep and drape. Cystoscopy Foroblique lens and 21-Moldovan sheath was unable to intubate the left ureteral orifice with an 025 wire. I thus take a 7-Moldovan mini ureteroscope and intubate the left ureteral orifice and pass it to the point of a false passage and then am able to pass it above that. Through the ureteroscope I passed an 035 wire up into the kidney. I removed the ureteroscope and over the wires passed a 7-Moldovan occluding balloon catheter up into the UPJ. The balloon is insufflated and secured to a 16-Moldovan Amaya. The patient is placed in a prone position. Dr. vaughn of radiology performed percutaneous access to a left upper pole calyx below the 12th rib. We then dilate the tract to 30-Moldovan. I passed the semirigid scope into the collecting system and remove clot. The UPJ stone is identified and grasped and removed. I then am able to work into the left lower pole calyx and find the first large stone. With ultrasound it is broken up and the smaller pieces and removed. Cannot see any remaining stone. I do fluoroscopy and his 2 remaining stones. I passed the flexible nephroscope into the lower pole and identify the smaller of the 2 stones and basketed with a 1.9-Moldovan basket. I then pass the scope into the other calyx and identify larger stone. I then used laser lithotripsy and break it into smaller pieces and basket the fragments up. At the end of the procedure there is no remaining stones. A 10 J nephrostomy tube was placed a. It is secured to the skin. The patient's awakened and returned recovery room good condition. She tolerated procedure well be placed in the hospital postoperatively. Blood loss is approximately 100 mL
--- NOTE | 2020-11-13 10:45 | FL ---
EXAMINATION TYPE: FL Perc Nephrostomy New Access DATE OF EXAM: 11/13/2020 COMPARISON: NONE HISTORY: Left renal stone Procedure had been discussed with the patient by Dr. Pelayo, risks, benefits, alternatives, were dis cussed and any questions were answered. Informed consent was obtained. The patient was in a semipro ne position prepped and draped on the OR table in the usual sterile fashion. Utilizing a 15 cm lengt h Chiba needle a single pass was made into a lower pole posterior calyx under fluoroscopic guidance. An 0.018 guidewire is passed through the needle and there was placement of a 6-Maori catheter sheat h system. There was conversion to a 0.035 system was performed with passage of a guidewire into the ureter utilizing a directional catheter. A second safety wire was placed. Remaining portion of pro cedure performed by . Approximately 5 minutes and 42 of fluoroscopy was provided. IMPRESSION: 1. Successful intraoperative left nephrostomy prior to nephrolithotomy.
[2020-11-13] MEDS ORDERED: HYDROmorphone 0.5 MG/0.5 ML SYRINGE IVP ONE ×2 (11:18→11:52)
[2020-11-13] MEDS: LACTATED RINGERS 1,000 ML IV SCH ×2 (13:41→13:50)
[2020-11-13] MEDS: DEXTROSE 5%-0.45% NACL 1,000 ML IV SCH (13:44)
[2020-11-13] MEDS: HYDROmorphone PCA 10 MG/50 ML BAG IV PRN (14:18)
[2020-11-13] MEDS ORDERED: lisinopriL 20 MG TAB PO STA (15:01)
[2020-11-13] MEDS: PANTOPRAZOLE 40 MG/10 ML VIAL IVP SCH (15:29)
[2020-11-13 16:22] LABS: Basophils % (A) 0 %; Eosinophils # (A) 0.1 k/uL (0-0.7); Eosinophils % (A) 1 %; HCT 43.5 % (34.0-46.0); HGB 14.5 gm/dL (11.4-16.0); Lymphocytes # (A) 0.5 k/uL (1.0-4.8); Lymphocytes % (A) 4 %; MCH 32.5 pg (25.0-35.0); MCHC 33.4 g/dL (31.0-37.0); MCV 97.2 fL (80.0-100.0); Mean Platelet Volume 7.7; Monocytes # (A) 0.4 k/uL (0-1.0); Monocytes % (A) 3 %; Neutrophils # (A) 10.7 k/uL (1.3-7.7); Neutrophils % (A) 92 %; Platelet Count 114 k/uL (150-450); RBC 4.47 m/uL (3.80-5.40); RDW 12.2 % (11.5-15.5); WBC 11.7 k/uL (3.8-10.6)
[2020-11-13 16:29] LABS: African American GFR (CKD) >90 (>60 ml/min/1.73 sqM); Anion Gap 8 mmol/L; Blood Urea Nitrogen 13 mg/dL (7-17); Calcium 9.4 mg/dL (8.4-10.2); Carbon Dioxide 24 mmol/L (22-30); Chloride 104 mmol/L (98-107); Glucose 148 mg/dL (74-99); Non-African American GFR(CKD) 82 (>60 ml/min/1.73 sqM); Potassium 4.5 mmol/L (3.5-5.1); Sodium 136 mmol/L (137-145)
[2020-11-13 20:46] VITALS: RESP 16
[2020-11-13] MEDS: hydrALAZINE HCL 25 MG TAB PO SCH (20:54)
[2020-11-14] MEDS: DEXTROSE 5%-0.45% NACL 1,000 ML IV SCH (02:04)
[2020-11-14 05:23] VITALS: BP 109/68; PULSE 68; TEMP 98.2
[2020-11-14] MEDS: HYDROmorphone PCA 10 MG/50 ML BAG IV PRN (07:10)
--- NOTE | 2020-11-14 09:18 | P.DS ---
Providers Date of admission: 11/14/20 06:56 Expected date of discharge: 11/14/20 Attending physician: Caden Pelayo Consults: 11/13/20 10:34 Consult Physician Routine Consulting Provider: Feng River Consult Reason/Comments: Pessary placement Do you want consulting provider notified?: Yes, Notify in am 11/13/20 14:46 Consult Physician Routine Consulting Provider: Karlo Rodriguez Consult Reason/Comments: Medical Management Do you want consulting provider notified?: Yes Primary care physician: Jill Archibald [facility] Course: On the day of admission, the patient underwent an uncomplicated left PCNL. The perioperative course was without complication. On the first postoperative morning, she was afebrile with stable vital signs. She was tolerating liquids, without nausea or vomiting. She was experiencing minimal discomfort. The nephrostomy tube was draining blood-tinged urine. The Amaya catheter was draining clear urine. The decision was made to remove the Amaya catheter, and to discharge the patient home with the nephrostomy tube once it was confirmed she could ambulate without difficulty. Procedures: Left percutaneous nephrolithotomy (PCNL) on 11/13/2020 Patient Condition at Discharge: Good Plan - Discharge Summary Discharge Rx Participant: Yes New Discharge Prescriptions: New Cephalexin [Keflex] 250 mg PO Q8HR 7 Days #21 cap Ketorolac [Toradol] 10 mg PO Q6HR PRN #6 tab PRN Reason: Pain No Action Aspirin [Adult Low Dose Aspirin EC] 81 mg PO DAILY Discharge Medication List Aspirin [Adult Low Dose Aspirin EC] 81 mg PO DAILY 11/11/20 [History] Cephalexin [Keflex] 250 mg PO Q8HR 7 Days #21 cap 11/14/20 [Rx] Ketorolac [Toradol] 10 mg PO Q6HR PRN #6 tab 11/14/20 [Rx] Follow up Appointment(s)/Referral(s): Columba Joseph DO [Doctor of Osteopathic Medicine] - 1-2 Days Activity/Diet/Wound Care/Special Instructions: Discharge home with left nephrostomy tube. Diet as tolerated. Drink plenty of fluids. Hold aspirin until seen by Dr. Pelayo next week. Discharge Disposition: HOME SELF-CARE
[2020-11-14] MEDS: PANTOPRAZOLE 40 MG/10 ML VIAL IVP SCH (10:15)
[2020-11-14] MEDS: hydrALAZINE HCL 25 MG TAB PO SCH (10:15)
== END 2020-11-14 11:25 | disposition home or self-care (01) ==
LOC: OR 06:31 → 5NMEDONC 10:18 → OR 11-14 06:56 → 5NMEDONC 11-14 06:56
PROVIDERS: ADMIT Family Medicine; ATTEND Urology
DX: N20.2 Calculus of kidney with calculus of ureter (principal); N13.6 Pyonephrosis; N99.3 Prolapse of vaginal vault after hysterectomy; I10 Essential (primary) hypertension; I48.91 Unspecified atrial fibrillation; K21.9 Gastro-esophageal reflux disease without esophagitis; H91.90 Unspecified hearing loss, unspecified ear; I83.90 Asymptomatic varicose veins of unspecified lower extremity; K44.9 Diaphragmatic hernia without obstruction or gangrene; R32 Unspecified urinary incontinence; Z79.82 Long term (current) use of aspirin; Z90.711 Acquired absence of uterus with remaining cervical stump; Z90.721 Acquired absence of ovaries, unilateral; Z88.2 Allergy status to sulfonamides; Z87.442 Personal history of urinary calculi; Z90.49 Acquired absence of other specified parts of digestive tract; Z98.42 Cataract extraction status, left eye; Z98.41 Cataract extraction status, right eye; Z80.0 Family history of malignant neoplasm of digestive organs; Z82.5 Family history of asthma and other chronic lower respiratory diseases; Z84.1 Family history of disorders of kidney and ureter
CPT/HCPCS: 97162; 80048; 85025; 82365; 87635; 50432; 74018; 50080; G0378; C1769 ×3; C2628; C1894; C1729; J1100; J2405; J2001; J1580; J0290; J0330; J2704; C9113 ×2; J1170 ×3; Q9967; 86850; 86900; 86901

== ENCOUNTER → 2021-04-15 | Outpatient (CLI) | payer MEDICARE, BC ==
--- NOTE | 2021-04-15 13:27 | XR ---
EXAMINATION TYPE: XR knee complete RT DATE OF EXAM: 04/15/2021 CLINICAL HISTORY: Pain. TECHNIQUE: Three views of the right knee are obtained. COMPARISON: None. FINDINGS: There is no acute fracture/dislocation evident in right knee. Moderate to severe tricompar tment joint space loss more prominent lateral versus medial tibiofemoral compartment. [id number]-[id number] e tricompartment spurring greatest patellofemoral compartment. Increased density suprapatellar region consistent with moderate size joint effusion. IMPRESSION: As above.
== END | disposition home or self-care (01) ==
LOC: RADXRMAIN 12:50
PROVIDERS: ATTEND Physician Assistant
DX: M25.861 Other specified joint disorders, right knee (principal)

== ENCOUNTER 2024-02-17 21:43 | Inpatient (IN) | payer MEDICARE, BC ==
[2024-02-17 23:22] LABS: Basophils % (A) 0 %; Eosinophils # (A) 0.1 k/uL (0-0.7); Eosinophils % (A) 0 %; HCT 42.1 % (34.0-46.0); HGB 13.4 gm/dL (11.4-16.0); Lymphocytes # (A) 0.3 k/uL (1.0-4.8); Lymphocytes % (A) 3 %; MCH 31.3 pg (25.0-35.0); MCHC 31.8 g/dL (31.0-37.0); MCV 98.7 fL (80.0-100.0); Mean Platelet Volume 8.6; Monocytes # (A) 0.5 k/uL (0-1.0); Monocytes % (A) 5 %; Neutrophils # (A) 10.9 k/uL (1.3-7.7); Neutrophils % (A) 92 %; Platelet Count 171 k/uL (150-450); RBC 4.27 m/uL (3.80-5.40); RDW 12.7 % (11.5-15.5); WBC 11.9 k/uL (3.8-10.6)
[2024-02-17 23:39] LABS: INR 1.1 (<1.2); Prothrombin Time 11.6 sec (10.0-12.5)
[2024-02-17 23:39] LABS: Amorphous Sediment,Urine Many /hpf; Appearance,Urine Cloudy (Clear); Bacteria,Urine Many /hpf; Bilirubin,Urine Negative (Negative); Blood,Urine Small (Negative); Color,Urine Colorless; Glucose,Urine (UA) Negative (Negative); Hyaline Casts,Urine 7 /lpf (0-2); Ketones,Urine Negative (Negative); Leukocyte Esterase,Urine Large (Negative); Mucus,Urine Rare /hpf; Nitrite,Urine Negative (Negative); PH, Urine 7.5 (5.0-8.0); Protein,Urine Trace (Negative); RBC,Urine 5 /hpf (0-5); Specific Gravity,Urine 1.012 (1.001-1.035); Urobilinogen,Urine <2.0 mg/dL (<2.0); WBC,Urine 56 /hpf (0-5)
[2024-02-17 23:43] LABS: Amphetamine Screen,Urine Not Detected (NotDetected); Barbiturate Screen,Urine Not Detected (NotDetected); Benzodiazepines Screen,Urine Not Detected (NotDetected); Cocaine Screen,Urine Not Detected (NotDetected); Methadone Screen, Urine Not Detected (NotDetected); Opiate Screen,Urine Not Detected (NotDetected); Oxycodone Screen, Urine Not Detected (NotDetected); Phencyclidine Screen,Urine Not Detected (NotDetected); Tricyclic Antidepressant,Urine Not Detected (NotDetected); Urn Cannabinoid Scrn Not Detected (NotDetected)
[2024-02-17 23:46] LABS: ALT 14 U/L (4-34); AST 25 U/L (14-36); African American GFR (CKD) 81 (>60 ml/min/1.73 sqM); Albumin 4.1 g/dL (3.5-5.0); Alcohol <10 mg/dL; Alkaline Phosphatase 78 U/L (38-126); Anion Gap 8 mmol/L; Blood Urea Nitrogen 29 mg/dL (7-17); Calcium 9.8 mg/dL (8.4-10.2); Carbon Dioxide 22 mmol/L (22-30); Chloride 107 mmol/L (98-107); Glucose 106 mg/dL (74-99); Non-African American GFR(CKD) 70 (>60 ml/min/1.73 sqM); Potassium 4.2 mmol/L (3.5-5.1); Sodium 137 mmol/L (137-145); Total Bilirubin 1.1 mg/dL (0.2-1.3); Total Protein 7.1 g/dL (6.3-8.2)
[2024-02-18] MEDS ORDERED: NALOXONE 0.4 MG/ML 1 ML VIAL IV PRN (01:07)
--- NOTE | 2024-02-18 01:08 | ED ---
Altered Mental Status HPI - General Chief Complaint: Altered Mental Status Stated Complaint: Altered mental, Fall Time Seen by Provider: 02/17/24 22:00 Source: patient Mode of arrival: wheelchair Limitations: no limitations - History of Present Illness Initial Comments: 88-year-old female with past medical history of aphasia, dementia, A-fib who presents to the emergency department with altered mental status. Daughter is at bedside and helps provide the history. States that her mother has been more confused over the course of the day. She does have some baseline confusion but normally can recognize her children. She does not have orientation to the time of year. States that today she has been having nonsensical speech. She has al so been hallucinating. She has worsening tremors. Daughter states that she fell last night. She was found on the ground in between her bed and bathroom. It was unknown if she hit her head. She has a history of A-fib however she does not take any anticoagulation. Daughter states that this frequently happens when she has a urinary tract infection. No reported fevers. HPI is limited because of the patient's current condition - Related Data Home Medications Medication Instructions Recorded Confirmed Aspirin [Adult Low Dose Aspirin EC] 81 mg PO DAILY 11/11/20 11/11/20 Previous Rx's Medication Instructions Recorded Cephalexin [Keflex] 250 mg PO Q8HR 7 Days #21 cap 11/14/20 Ketorolac [Toradol] 10 mg PO Q6HR PRN #6 tab 11/14/20 Allergies Allergy/AdvReac Type Severity Reaction Status Date / Time Sulfa (Sulfonamide Allergy Unknown Verified 11/13/20 07:26 Antibiotics) Review of Systems ROS Statement: Those systems with pertinent positive or pertinent negative responses have been documented in the HPI. ROS Other: All systems not noted in ROS Statement are negative. Past Medical History Past Medical History: Atrial Fibrillation, Eye Disorder, GERD/Reflux, Hypertension Additional Past Medical History / Comment(s): ANDREW CATARACTS REMOVED.HIATAL HERNIA, INCONT OF URINE WEARS A PAD,ARTHRITIS,VARICOSE VEINS History of Any Multi-Drug Resistant Organisms: None Reported Past Surgical History: Adenoidectomy, Cholecystectomy, Hysterectomy, Tonsillectomy Additional Past Surgical History / Comment(s): EXC ANDREW CATARACTS. PARTIAL HYST- STILL HAS 1 OVARY.EGD,cysto with stent Past Anesthesia/Blood Transfusion Reactions: No Reported Reaction Additional Past Anesthesia/Blood Transfusion Reaction / Comment(s): NEVER HAD HAD TRASFUSIONS Past Psychological History: No Psychological Hx Reported Smoking Status: Never smoker Past Alcohol Use History: None Reported Past Drug Use History: None Reported - Past Family History Father History Unknown: Yes Family Medical History: Cancer Additional Family Medical History / Comment(s): Colon Cancer. Mother Additional Family Medical History / Comment(s): Mother was in good health and at 93. Brother(s) Additional Family Medical History / Comment(s): Kidney removal. Daughter(s) Family Medical History: No Reported History Son(s) Family Medical History: Asthma, Sleep Apnea/CPAP/BIPAP General Exam Limitations: altered mental status General appearance: lethargic Head exam: Present: atraumatic, normocephalic, normal inspection Eye exam: Present: normal appearance, PERRL, EOMI. Absent: scleral icterus, conjunctival injection, periorbital swelling ENT exam: Present: mucous membranes dry Respiratory exam: Present: normal lung sounds bilaterally. Absent: respiratory distress, wheezes, rales, rhonchi, stridor Cardiovascular Exam: Present: tachycardia, irregular rhythm GI/Abdominal exam: Present: soft Extremities exam: Present: normal inspection, full ROM, normal capillary refill. Absent: tenderness, pedal edema, joint swelling, calf tenderness Neurological exam: Present: altered Course Vital Signs 02/17/24 02/17/24 02/17/24 21:55 22:12 23:00 Temperature 98.2 F Pulse Rate 129 H 126 H 105 H Respiratory 20 18 22 Rate Blood Pressure 169/84 156/96 133/83 O2 Sat by Pulse 95 96 98 Oximetry 02/18/24 02/18/24 02/18/24 00:30 01:00 01:31 Temperature Pulse Rate 130 H 121 H 135 H Respiratory 24 23 24 Rate Blood Pressure 138/76 140/99 145/73 O2 Sat by Pulse 97 96 98 Oximetry 02/18/24 02/18/24 02/18/24 02:22 04:00 06:00 Temperature Pulse Rate 112 H 90 90 Respiratory 24 18 16 Rate Blood Pressure 130/68 100/59 104/68 O2 Sat by Pulse 98 100 98 Oximetry Medical Decision Making - Medical Decision Making Was pt. sent in by a medical professional or institution (, PA, EXERCISE TEACHER, urgent care, hospital, or long-term...) When possible be specific @ -No Did you speak to anyone other than the patient for history (EMS, parent, family, police, friend...)? What history was obtained from this source @ -Daughter provides history Did you review nursing and triage notes (agree or disagree)? Why? @ -I reviewed and agree with nursing and triage notes Were old charts reviewed (outside hosp., previous admission, EMS record, old EKG, old radiological studies, urgent care reports/EKG's, long-term records)? Report findings @ -I reviewed microbiology cultures from the past Differential Diagnosis (chest pain, altered mental status, abdominal pain women, abdominal pain men, vaginal bleeding, weakness, fever, dyspnea, syncope, headache, dizziness, GI bleed, back pain, seizure, CVA, palpatations, mental health, musculoskeletal)? @ -Differential Altered Mental Status: Hypoglycemia, DKA, hypercapnia, ETOH, overdose, CO poisoning, trauma, myxedema coma, HTN encephalopathy, infection, encephalitis, psychosis, intercranial hemorrhage, hepatic encephalopathy, meningitis, CVA, this is not meant to be an all-inclusive list EKG interpreted by me (3pts min.). @ -Yes and demonstrates A-fib with a rate of 122. QRS 80. QTc of 316. Significant baseline artifact X-rays interpreted by me (1pt min.). @ -yes and demonstrates cardiomegaly CT interpreted by me (1pt min.). @ -yes and demonstrates no acute process U/S interpreted by me (1pt. min.). @ -None done What testing was considered but not performed or refused? (CT, X-rays, U/S, labs)? Why? @ -None What meds were considered but not given or refused? Why? @ -None Did you discuss the management of the patient with other professionals (professionals i.e. SCOOBY Blackmon, EXERCISE TEACHER, lab, RT, psych nurse, social insurance analyst, a auxiliary, teacher, chief scientific officer, disease case manager rn)? Give summary @ -spoke with dr. villa Was smoking cessation discussed for >3mins.? @ -No Was critical care preformed (if so, how long)? @ -No Were there social determinants of health that impacted care today? How? (Homelessness, low income, unemployed, alcoholism, drug addiction, transportation, low edu. Level, literacy, decrease access to med. care, assisted, rehab)? @ -No Was there de-escalation of care discussed even if they declined (Discuss DNR or withdrawal of care, Hospice)? DNR status @ -No What co-morbidities impacted this encounter? (DM, HTN, Smoking, COPD, CAD, Cancer, CVA, ARF, Chemo, Hep., AIDS, mental health diagnosis, sleep apnea, morbid obesity)? @ -dementia Was patient admitted / discharged? Hospital course, mention meds given and r oute, prescriptions, significant lab abnormalities, going to OR and other pertinent info. @ -admitted. patient started on antibiotics and given lopressor 5 mg iv. spoke with allen for admission Undiagnosed new problem with uncertain prognosis? @ -No Drug Therapy requiring intensive monitoring for toxicity (Heparin, Nitro, Insulin, Cardizem)? @ -No Were any procedures done? @ -No Diagnosis/symptom? @ -acute encephalopathy, acute uti, afib with rvr, hx afib Acute, or Chronic, or Acute on Chronic? @ -acute Uncomplicated (without systemic symptoms) or Complicated (systemic symptoms)? @ -complicated Side effects of treatment? @ -No Exacerbation, Progression, or Severe Exacerbation? @ -No Poses a threat to life or bodily function? How? (Chest pain, USA, PR, pneumonia, PE, COPD, DKA, ARF, appy, cholecystitis, CVA, Diverticulitis, Homicidal, Suicidal, threat to staff... and all critical care pts) @ -yes as patient has rapid heart rate - Lab Data Result diagrams: 02/17/24 23:01 02/17/24 23:01 Lab Results 02/17/24 02/17/24 02/17/24 Range/Units 23:01 23:01 23:01 WBC 11.9 H (3.8-10.6) k/uL RBC 4.27 (3.80-5.40) m/uL Hgb 13.4 (11.4-16.0) gm/dL Hct 42.1 (34.0-46.0) % MCV 98.7 (80.0-100.0) fL MCH 31.3 (25.0-35.0) pg MCHC 31.8 (31.0-37.0) g/dL RDW 12.7 (11.5-15.5) % Plt Count 171 (150-450) k/uL MPV 8.6 Neutrophils % 92 % Lymphocytes % 3 % Monocytes % 5 % Eosinophils % 0 % Basophils % 0 % Neutrophils # 10.9 H (1.3-7.7) k/uL Lymphocytes # 0.3 L (1.0-4.8) k/uL Monocytes # 0.5 (0-1.0) k/uL Eosinophils # 0.1 (0-0.7) k/uL Basophils # 0.0 (0-0.2) k/uL PT 11.6 (10.0-12.5) sec INR 1.1 (<1.2) APTT 24.0 (22.0-30.0) sec Sodium 137 (137-145) mmol/L Potassium 4.2 (3.5-5.1) mmol/L Chloride 107 (98-107) mmol/L Carbon Dioxide 22 (22-30) mmol/L Anion Gap 8 mmol/L BUN 29 H (7-17) mg/dL Creatinine 0.76 (0.52-1.04) mg/dL Est GFR (CKD-EPI)AfAm 81 (>60 ml/min/1.73 sqM) Est GFR (CKD-EPI)NonAf 70 (>60 ml/min/1.73 sqM) Glucose 106 H (74-99) mg/dL Plasma Lactic Acid Jimenez (0.7-2.0) mmol/L Calcium 9.8 (8.4-10.2) mg/dL Total Bilirubin 1.1 (0.2-1.3) mg/dL AST 25 (14-36) U/L ALT 14 (4-34) U/L Alkaline Phosphatase 78 (38-126) U/L Ammonia (<30) umol/L Troponin I (0.000-0.034) ng/mL Total Protein 7.1 (6.3-8.2) g/dL Albumin 4.1 (3.5-5.0) g/dL TSH 1.220 (0.465-4.680) mIU/L Urine Color Urine Appearance (Clear) Urine pH (5.0-8.0) Ur Specific Arroyo (1.001-1.035) Urine Protein (Negative) Urine Glucose (UA) (Negative) Urine Ketones (Negative) Urine Blood (Negative) Urine Nitrite (Negative) Urine Bilirubin (Negative) Urine Urobilinogen (<2.0) mg/dL Ur Leukocyte Esterase (Negative) Urine RBC (0-5) /hpf Urine WBC (0-5) /hpf Amorphous Sediment (None) /hpf Urine Bacteria (None) /hpf Hyaline Casts (0-2) /lpf Urine Mucus (None) /hpf Urine Opiates Screen (NotDetected) Ur Oxycodone Screen (NotDetected) Urine Methadone Screen (NotDetected) Ur Barbiturates Screen (NotDetected) U Tricyclic Antidepress (NotDetected) Ur Phencyclidine Scrn (NotDetected) Ur Amphetamines Screen (NotDetected) U Methamphetamines Scrn (NotDetected) U Benzodiazepines Scrn (NotDetected) Urine Cocaine Screen (NotDetected) U Marijuana (THC) Screen (NotDetected) Serum Alcohol <10 mg/dL 02/17/24 02/17/24 02/17/24 Range/Units 23:01 23:17 23:17 WBC (3.8-10.6) k/uL RBC (3.80-5.40) m/uL Hgb (11.4-16.0) gm/dL Hct (34.0-46.0) % MCV (80.0-100.0) fL MCH (25.0-35.0) pg MCHC (31.0-37.0) g/dL RDW (11.5-15.5) % Plt Count (150-450) k/uL MPV Neutrophils % % Lymphocytes % % Monocytes % % Eosinophils % % Basophils % % Neutrophils # (1.3-7.7) k/uL Lymphocytes # (1.0-4.8) k/uL Monocytes # (0-1.0) k/uL Eosinophils # (0-0.7) k/uL Basophils # (0-0.2) k/uL PT (10.0-12.5) sec INR (<1.2) APTT (22.0-30.0) sec Sodium (137-145) mmol/L Potassium (3.5-5.1) mmol/L Chloride (98-107) mmol/L Carbon Dioxide (22-30) mmol/L Anion Gap mmol/L BUN (7-17) mg/dL Creatinine (0.52-1.04) mg/dL Est GFR (CKD-EPI)AfAm (>60 ml/min/1.73 sqM) Est GFR (CKD-EPI)NonAf (>60 ml/min/1.73 sqM) Glucose (74-99) mg/dL Plasma Lactic Acid Jimenez (0.7-2.0) mmol/L Calcium (8.4-10.2) mg/dL Total Bilirubin (0.2-1.3) mg/dL AST (14-36) U/L ALT (4-34) U/L Alkaline Phosphatase (38-126) U/L Ammonia (<30) umol/L Troponin I <0.012 (0.000-0.034) ng/mL Total Protein (6.3-8.2) g/dL Albumin (3.5-5.0) g/dL TSH (0.465-4.680) mIU/L Urine Color Colorless Urine Appearance Cloudy H (Clear) Urine pH 7.5 (5.0-8.0) Ur Specific Arroyo 1.012 (1.001-1.035) Urine Protein Trace H (Negative) Urine Glucose (UA) Negative (Negative) Urine Ketones Negative (Negative) Urine Blood Small H (Negative) Urine Nitrite Negative (Negative) Urine Bilirubin Negative (Negative) Urine Urobilinogen <2.0 (<2.0) mg/dL Ur Leukocyte Esterase Large H (Negative) Urine RBC 5 (0-5) /hpf Urine WBC 56 H (0-5) /hpf Amorphous Sediment Many H (None) /hpf Urine Bacteria Many H (None) /hpf Hyaline Casts 7 H (0-2) /lpf Urine Mucus Rare H (None) /hpf Urine Opiates Screen Not Detected (NotDetected) Ur Oxycodone Screen Not Detected (NotDetected) Urine Methadone Screen Not Detected (NotDetected) Ur Barbiturates Screen Not Detected (NotDetected) U Tricyclic Antidepress Not Detected (NotDetected) Ur Phencyclidine Scrn Not Detected (NotDetected) Ur Amphetamines Screen Not Detected (NotDetected) U Methamphetamines Scrn Not Detected (NotDetected) U Benzodiazepines Scrn Not Detected (NotDetected) Urine Cocaine Screen Not Detected (NotDetected) U Marijuana (THC) Screen Not Detected (NotDetected) Serum Alcohol mg/dL 02/18/24 Range/Units 00:54 WBC (3.8-10.6) k/uL RBC (3.80-5.40) m/uL Hgb (11.4-16.0) gm/dL Hct (34.0-46.0) % MCV (80.0-100.0) fL MCH (25.0-35.0) pg MCHC (31.0-37.0) g/dL RDW (11.5-15.5) % Plt Count (150-450) k/uL MPV Neutrophils % % Lymphocytes % % Monocytes % % Eosinophils % % Basophils % % Neutrophils # (1.3-7.7) k/uL Lymphocytes # (1.0-4.8) k/uL Monocytes # (0-1.0) k/uL Eosinophils # (0-0.7) k/uL Basophils # (0-0.2) k/uL PT (10.0-12.5) sec INR (<1.2) APTT (22.0-30.0) sec Sodium (137-145) mmol/L Potassium (3.5-5.1) mmol/L Chloride (98-107) mmol/L Carbon Dioxide (22-30) mmol/L Anion Gap mmol/L BUN (7-17) mg/dL Creatinine (0.52-1.04) mg/dL Est GFR (CKD-EPI)AfAm (>60 ml/min/1.73 sqM) Est GFR (CKD-EPI)NonAf (>60 ml/min/1.73 sqM) Glucose (74-99) mg/dL Plasma Lactic Acid Jimenez 1.5 (0.7-2.0) mmol/L Calcium (8.4-10.2) mg/dL Total Bilirubin (0.2-1.3) mg/dL AST (14-36) U/L ALT (4-34) U/L Alkaline Phosphatase (38-126) U/L Ammonia <9 (<30) umol/L Troponin I (0.000-0.034) ng/mL Total Protein (6.3-8.2) g/dL Albumin (3.5-5.0) g/dL TSH (0.465-4.680) mIU/L Urine Color Urine Appearance (Clear) Urine pH (5.0-8.0) Ur Specific Arroyo (1.001-1.035) Urine Protein (Negative) Urine Glucose (UA) (Negative) Urine Ketones (Negative) Urine Blood (Negative) Urine Nitrite (Negative) Urine Bilirubin (Negative) Urine Urobilinogen (<2.0) mg/dL Ur Leukocyte Esterase (Negative) Urine RBC (0-5) /hpf Urine WBC (0-5) /hpf Amorphous Sediment (None) /hpf Urine Bacteria (None) /hpf Hyaline Casts (0-2) /lpf Urine Mucus (None) /hpf Urine Opiates Screen (NotDetected) Ur Oxycodone Screen (NotDetected) Urine Methadone Screen (NotDetected) Ur Barbiturates Screen (NotDetected) U Tricyclic Antidepress (NotDetected) Ur Phencyclidine Scrn (NotDetected) Ur Amphetamines Screen (NotDetected) U Methamphetamines Scrn (NotDetected) U Benzodiazepines Scrn (NotDetected) Urine Cocaine Screen (NotDetected) U Marijuana (THC) Screen (NotDetected) Serum Alcohol mg/dL Disposition Clinical Impression: Encephalopathy acute, UTI (urinary tract infection), Atrial fibrillation with RVR Disposition: ADMITTED IP TO THIS HOSP Condition: Stable Is patient prescribed a controlled substance at d/c from ED?: No Time of Disposition: 01:07 Decision to Admit Reason: Admit from EC Decision Date: 02/18/24 Decision Time: 01:07
--- NOTE | 2024-02-18 01:11 | CT ---
EXAM: CT Head Without Intravenous Contrast CLINICAL HISTORY: ITS.REASON CT Reason: Altered mental status TECHNIQUE: Axial computed tomography images of the head/brain without intravenous contrast. CTDI is 47.1 mGy and DLP is 1276.4 mGy-cm. This CT exam was performed using one or more of the following dose reduction techniques: automated exposure control, adjustment of the mA and/or kV according to patient size, and/or use of iterative reconstruction technique. COMPARISON: No relevant prior studies available. FINDINGS: No acute intracranial hemorrhage. No midline shift or mass effect. The territorial gtz-white matter differentiation is maintained throughout. Age-related cerebral volume loss. Periventricular and subcortical white matter hypoattenuation, consistent with chronic microangiopathy. The visualized orbits appear grossly unremarkable. The calvarium is intact. The visualized paranasal sinuses and mastoid air cells are grossly clear. IMPRESSION: No acute intracranial hemorrhage, midline shift, or mass effect.
[2024-02-18] MEDS: cefTRIAXone IN SWFI 1,000 MG/10 ML SYRINGE IVP STA (01:13)
--- NOTE | 2024-02-18 01:26 | XR ---
EXAM: XR Chest, 1 View CLINICAL HISTORY: ITS.REASON XR Reason: altered mental status TECHNIQUE: Frontal view of the chest. COMPARISON: No relevant prior studies available. IMPRESSION: Cardiomegaly. Slightly prominent interstitial markings
[2024-02-18] MEDS: METOPROLOL TARTRATE 5 MG/5 ML VIAL IVP STA (01:34)
[2024-02-18 01:41] LABS: Lactic Acid, Venous 1.5 mmol/L (0.7-2.0)
[2024-02-18] MEDS: ACETAMINOPHEN IV (For NPO) 1,000 MG in EMPTY BAG 1 BAG IVPB STA (02:12)
[2024-02-18] MEDS: LORazepam 2 MG/ML INJ IV STA (06:20)
[2024-02-18] MEDS: PANTOPRAZOLE 40 MG/10 ML VIAL IVP SCH (13:26)
[2024-02-18] MEDS: SODIUM CHLORIDE 0.9% 1,000 ML IV SCH (14:04)
--- NOTE | 2024-02-18 14:04 | P.HPIM ---
History of Present Illness H&P Date: 02/18/24 Chief Complaint: Altered mental status, fall This is a 88-year-old female with past medical history significant for recurrent UTIs with E. coli , Klebsiella pneumonia , dementia, aphasia, atrial fibrillation-not on anticoagulation, gastroesophageal reflux disease, hypertensi on, dementia and multiple other medical issues admitted altered mental status, suspicious for acute UTI, fall. In the past, patient was maintained on prophylactic amoxicillin; current home med list has not yet been obtained. No family at bedside. ER reports daughter at the bedside last night, reported patient fell the night before-unwitnessed. Discovered on the ground between her bed and bathroom .unknown if patient sustained head trauma .no apparent injuries so they did not seek treatment at that time. Brain CT reported no acute intracranial hemorrhage, midline shift or mass effect.following day, patient became more confused with nonsensical speech, positive hallucinations, and worsening tremors. Reported patient has baseline confusion, disoriented to time/year, but recognizes her children. Chest x-ray reported slightly prominent interstitial markings. Troponin negative x 1. EKG reported atrial fibrillation with RVR. No reported fevers. On exam patient is confused, denies pain, abdominal/flank pain-and is nontender to palpation. Denies chest pain, pal pitations or shortness of breath. Afebrile, WBC 11.9. Hemoglobin 13.4, platelets 171, INR 1.1 electrolytes within normal limits, bicarb 22, BUN 29, creatinine 0.76. Glucose 106. Lactic acid 1.5. UA reported rare mucus, hyaline casts, many bacteria, 56 WBCs, large leukocytes, negative nitrates, urine culture ordered. Toxicology screen reported less than 10 serum alcohol. On admission.Tachycardic and hypertensive, maintaining O2 sats in the high 90s on room air. machine filler servicer at bedside. Review of Systems Review of systems unable to obtain at this time due to patient's current mental status Past Medical History Past Medical History: Atrial Fibrillation, Eye Disorder, GERD/Reflux, Hypertension Additional Past Medical History / Comment(s): ANDREW CATARACTS REMOVED.HIATAL HERNIA, INCONT OF URINE WEARS A PAD,ARTHRITIS,VARICOSE VEINS History of Any Multi-Drug Resistant Organisms: None Reported Past Surgical History: Adenoidectomy, Cholecystectomy, Hysterectomy, Tonsillectomy Additional Past Surgical History / Comment(s): EXC ANDREW CATARACTS. PARTIAL HYST- STILL HAS 1 OVARY.EGD,cysto with stent Past Anesthesia/Blood Transfusion Reactions: No Reported Reaction Additional Past Anesthesia/Blood Transfusion Reaction / Comment(s): NEVER HAD HAD TRASFUSIONS Past Psychological History: No Psychological Hx Reported Smoking Status: Never smoker Past Alcohol Use History: None Reported Past Drug Use History: None Reported - Past Family History Father History Unknown: Yes Family Medical History: Cancer Additional Family Medical History / Comment(s): Colon Cancer. Mother Additional Family Medical History / Comment(s): Mother was in good health and at 93. Brother(s) Additional Family Medical History / Comment(s): Kidney removal. Daughter(s) Family Medical History: No Reported History Son(s) Family Medical History: Asthma, Sleep Apnea/CPAP/BIPAP Medications and Allergies Home Medications Medication Instructions Recorded Confirmed Type No Known Home Medications 02/18/24 02/18/24 History Allergies Allergy/AdvReac Type Severity Reaction Status Date / Time Sulfa (Sulfonamide Allergy Unknown Verified 02/18/24 08:35 Antibiotics) Physical Exam Vitals: Vital Signs Temp Pulse Resp BP Pulse Ox 02/18/24 09:41 98.6 F 96 22 115/68 99 02/18/24 06:00 90 16 104/68 98 02/18/24 04:00 90 18 100/59 100 02/18/24 02:22 112 H 24 130/68 98 02/18/24 01:31 135 H 24 145/73 98 02/18/24 01:00 121 H 23 140/99 96 02/18/24 00:30 130 H 24 138/76 97 02/17/24 23:00 105 H 22 133/83 98 02/17/24 22:12 126 H 18 156/96 96 02/17/24 21:55 98.2 F 129 H 20 169/84 95 Intake and Output 02/17/24 02/18/24 02/18/24 22:59 06:59 14:59 Other: Weight 58.967 kg VITAL SIGNS: As above. GENERAL: Lying in bed, no acute distress, confused, aphasic, rambling HEENT: Conjunctivae normal. Oral mucosa moist NECK: Supple, no JVD. No thyroid enlargement. CARDIOVASCULAR: S1, S2 regular. Irregular, no murmur RESPIRATION: Unlabored, equal air entry, essentially clear to auscultation with bilateral bases diminished ABDOMEN: Soft, nondistended, nontender, no guarding. no masses palpable. Positive Bowel sounds. LEGS: No edema. no swelling , no calf tenderness NERVOUS SYSTEM: Unable to obtain at this time, related to current mental status Skin: Warm and dry, no rash noted Results CBC & Chem 7: 02/17/24 23:01 02/17/24 23:01 Labs: Abnormal Lab Results - Last 24 Hours (Table) 02/17/24 02/17/24 02/17/24 Range/Units 23:01 23:01 23:17 WBC 11.9 H (3.8-10.6) k/uL Neutrophils # 10.9 H (1.3-7.7) k/uL Lymphocytes # 0.3 L (1.0-4.8) k/uL BUN 29 H (7-17) mg/dL Glucose 106 H (74-99) mg/dL Urine Appearance Cloudy H (Clear) Urine Protein Trace H (Negative) Urine Blood Small H (Negative) Ur Leukocyte Esterase Large H (Negative) Urine WBC 56 H (0-5) /hpf Amorphous Sediment Many H (None) /hpf Urine Bacteria Many H (None) /hpf Hyaline Casts 7 H (0-2) /lpf Urine Mucus Rare H (None) /hpf Assessment and Plan Assessment: Sepsis secondary to acute UTI Leukocytosis secondary to the above Hypertension A-fib with rapid ventricular rate on admission, now controlled in a patient with Dehydration Acute metabolic encephalopathy secondary to all the above in a patient with underlying chronic dementia.Chronic atrial fibrillation,patient previously not on any beta blockers or anticoagulation therapy, using homeopathic methods. Home med list not yet obtained Gastroesophageal reflux disease History of recurrent herpes labialis Plan: Continue on current medication resume ,monitoring and symptomatic treatment. IV fluid hydration, IV antibiotics ceftriaxone. PPI for GI prophylaxis. Urine and blood cultures pending. Maintain director of patient safety. PT OT.Discharge planning potentially tomorrow. The impression and plan of care has been dictated as directed. : I performed a history and examination of this patient, discussed the same with the dictator. I agree with the dictator's note ,documented as a scribe. Any additional findings or plans will be noted.
[2024-02-19] MEDS: ACETAMINOPHEN TAB 325 MG TAB PO PRN (02:38)
[2024-02-19 09:21] LABS: Basophils # (A) 0.01 X 10*3/uL (0.00-0.10); Basophils % (A) 0.1 %; Eosinophils # (A) 0 X 10*3/uL (0.04-0.35); Eosinophils % (A) 0 %; HGB 11.2 g/dL (12.0-15.0); Lymphocytes # (A) 0.29 X 10*3/uL (0.90-5.00); MCH 31.8 pg (27.0-32.0); MCHC 32.9 g/dL (32.0-37.0); MCV 96.6 FL (80.0-97.0); Mean Platelet Volume 10.8 FL (9.5-12.2); Monocytes # (A) 0.52 X 10*3/uL (0.20-1.00); Monocytes % (A) 5.3 %; NRBC Per 100 WBC 0 X 10*3/uL (0.00-0.01); Neutrophils # (A) 8.88 X 10*3/uL (1.80-7.70); Neutrophils % (A) 91.2 %; Platelet Count 132 X 10*3/uL (140-440); RBC 3.52 X 10*6/uL (4.10-5.20); RDW 13.3 % (11.5-14.5); WBC 9.74 X 10*3/uL (4.50-10.00)
[2024-02-19 12:39] LABS: BUN/Creat Ratio 29.75 Ratio (12.00-20.00); Blood Urea Nitrogen 23.8 mg/dL (9.0-27.0); Calcium 8.6 mg/dL (8.7-10.3); Carbon Dioxide 21.5 mmol/L (21.6-31.8); Chloride 110 mmol/L (96-109); Glucose 123 mg/dL (70-110); Potassium 3.6 mmol/L (3.5-5.5); Sodium 142 mmol/L (135-145)
[2024-02-19] MEDS ORDERED: ZINC OXIDE PASTE (Z-GUARD) 1 APPLIC TOPICAL PRN (13:06)
--- NOTE | 2024-02-19 14:30 | P.PN ---
Subjective Progress Note Date: 02/19/24 This is a 88-year-old female with past medical history significant for recurrent UTIs with E. coli , Klebsiella pneumonia , dementia, aphasia, atrial fibrillation-not on anticoagulation, gastroesophageal reflux disease, hypertension, dementia and multiple other medical issues admitted altered mental status, suspicious for acute UTI, fall. In the past, patient was maintained on prophylactic amoxicillin; current home med list has not yet been obtained. No family at bedside. ER reports daughter at the bedside last night, reported patient fell the night before-unwitnessed. Discovered on the ground between her bed and bathroom .unknown if patient sustained head trauma .no apparent injuries so they did not seek treatment at that time. Brain CT reported no acute intracranial hemorrhage, midline shift or mass effect.following day, patient became more confused with nonsensical speech, positive hallucinations, and worsening tremors. Reported patient has baseline confusion, disoriented to time/year, but recognizes her children. Chest x-ray reported slightly prominent interstitial markings. Troponin negative x 1. EKG reported atrial fibrillation with RVR. No reported fevers. On exam patient is confused, denies pain, abdominal/flank pain-and is nontender to palpation. Denies chest pain, palpitations or shortness of breath. Afebrile, WBC 11.9. Hemoglobin 13.4, mp telets 171, INR 1.1 electrolytes within normal limits, bicarb 22, BUN 29, creatinine 0.76. Glucose 106. Lactic acid 1.5. UA reported rare mucus, hyaline casts, many bacteria, 56 WBCs, large leukocytes, negative nitrates, urine culture ordered. Toxicology screen reported less than 10 serum alcohol. On admission.Tachycardic and hypertensive, maintaining O2 sats in the high 90s on room air. date night sitter at bedside. 02/18. Patient seen and examined. Patient is lethargic and confused, unable to obtain a detailed review of system REVIEW OF SYSTEMS: Review of system cannot obtain patient is lethargic PHYSICAL EXAMINATION: GENERAL: The patient is lethargic, ill looking HEENT: Pupils are round and equally reacting to light. EOMI. No scleral icterus. No conjunctival pallor. Normocephalic, atraumatic. No pharyngeal erythema. No thyromegaly. CARDIOVASCULAR: S1 and S2 present. No murmurs, rubs, or gallops. PULMONARY: Chest is clear to auscultation, no wheezing or crackles. ABDOMEN: Soft, nontender, nondistended, normoactive bowel sounds. No palpable organomegaly. MUSCULOSKELETAL: No joint swelling or deformity. EXTREMITIES: No cyanosis, clubbing, or pedal edema. NEUROLOGICAL: Moving all extremities SKIN: No rashes. Assessment and plan Sepsis secondary to acute UTI Leukocytosis secondary to the above Hypertension A-fib with rapid ventricular rate on admission, now controlled in a patient with Dehydration Acute metabolic encephalopathy secondary to all the above in a patient with underlying chronic dementia.Chronic atrial fibrillation,patient previously not on any beta blockers or anticoagulation therapy, using homeopathic methods. Home med list not yet obtained Gastroesophageal reflux disease History of recurrent herpes labialis Monitor vital signs Monitor CBC Monitor CMP Follow-up urine culture continue IV fluids continue IV Rocephin PT and OT consulted Labs and medication were reviewed.. Continue same treatment. Continue with symptomatic treatment. Resume home medication. Monitor labs and vitals. DVT and GI prophylaxis. Further recommendations as per clinical course of the patient Dictation was produced using [employer] dictation software. please excuse any grammatical, word or spelling errors. Objective - Vital Signs Vital signs: Vital Signs Temp 97.6 F 02/19/24 07:28 Pulse 79 02/19/24 07:28 Resp 20 02/19/24 07:28 BP 120/89 02/19/24 07:28 Pulse Ox 95 02/19/24 07:28 FiO2 Intake & Output 02/18/24 02/19/24 02/19/24 18:59 06:59 18:59 Intake Total 150 Output Total 300 Balance 150 -300 Weight 58.967 kg Intake: Intake, IV Titration 150 Amount Sodium Chloride 0.9% 1, 100 000 ml @ 50 mls/hr IV . Q20H [facility] Rx#:[id number] cefTRIAXone 1 gm In 50 Sodium Chloride 0.9% 50 ml @ 100 mls/hr IVPB Q24HR [facility] Rx#:[id number] Output: Urine 300 Other: Voiding Method External Catheter External Catheter External Catheter - Labs CBC & Chem 7: 02/19/24 05:12 02/19/24 05:12 Labs: Abnormal Lab Results - Last 24 Hours (Table) 02/19/24 Range/Units 05:12 RBC 3.52 L (4.10-5.20) X 10*6/uL Hgb 11.2 L (12.0-15.0) g/dL Hct 34.0 L (37.2-46.3) % Plt Count 132 L (140-440) X 10*3/uL Neutrophils # 8.88 H (1.80-7.70) X 10*3/uL Lymphocytes # 0.29 L (0.90-5.00) X 10*3/uL Eosinophils # 0 L (0.04-0.35) X 10*3/uL
[2024-02-20] MEDS: ASPIRIN 81 MG PO SCH (13:04)
--- NOTE | 2024-02-20 13:35 | P.PN ---
Subjective Progress Note Date: 02/20/24 This is a 88-year-old female with past medical history significant for recurrent UTIs with E. coli , Klebsiella pneumonia , dementia, aphasia, atrial fibrillation-not on anticoagulation, gastroesophageal reflux disease, hypertension, dementia and multiple other medical issues admitted altered mental status, suspicious for acute UTI, fall. In the past, patient was maintained on prophylactic amoxicillin; current home med list has not yet been obtained. No family at bedside. ER reports daughter at the bedside last night, reported patient fell the night before-unwitnessed. Discovered on the ground between her bed and bathroom .unknown if patient sustained head trauma .no apparent injuries so they did not seek treatment at that time. Brain CT reported no acute intracranial hemorrhage, midline shift or mass effect.following day, patient became more confused with nonsensical speech, positive hallucinations, and worsening tremors. Reported patient has baseline confusion, disoriented to time/year, but recognizes her children. Chest x-ray reported slightly prominent interstitial markings. Troponin negative x 1. EKG reported atrial fibrillation with RVR. No reported fevers. On exam patient is confused, denies pain, abdominal/flank pain-and is nontender to palpation. Denies chest pain, palpitations or shortness of breath. Afebrile, WBC 11.9. Hemoglobin 13.4, mp telets 171, INR 1.1 electrolytes within normal limits, bicarb 22, BUN 29, creatinine 0.76. Glucose 106. Lactic acid 1.5. UA reported rare mucus, hyaline casts, many bacteria, 56 WBCs, large leukocytes, negative nitrates, urine culture ordered. Toxicology screen reported less than 10 serum alcohol. On admission.Tachycardic and hypertensive, maintaining O2 sats in the high 90s on room air. chairman at bedside. 02/18. Patient seen and examined. Patient is lethargic and confused, unable to obtain a detailed review of system 02/19. Patient seen and examined. Daughter at the bedside, patient history of dementia, states she is back to baseline REVIEW OF SYSTEMS: Review of system cannot obtain patient is lethargic PHYSICAL EXAMINATION: GENERAL: The patient is lethargic, ill looking HEENT: Pupils are round and equally reacting to light. EOMI. No scleral icterus. No conjunctival pallor. Normocephalic, atraumatic. No pharyngeal erythema. No thyromegaly. CARDIOVASCULAR: S1 and S2 present. No murmurs, rubs, or gallops. PULMONARY: Chest is clear to auscultation, no wheezing or crackles. ABDOMEN: Soft, nontender, nondistended, normoactive bowel sounds. No palpable organomegaly. MUSCULOSKELETAL: No joint swelling or deformity. EXTREMITIES: No cyanosis, clubbing, or pedal edema. NEUROLOGICAL: Moving all extremities SKIN: No rashes. Assessment and plan Sepsis secondary to acute UTI Leukocytosis secondary to the above Hypertension A-fib with rapid ventricular rate on admission, now controlled in a patient with Dehydration Acute metabolic encephalopathy secondary to all the above in a patient with underlying chronic dementia.Chronic atrial fibrillation,patient previously not on any beta blockers or anticoagulation therapy, using homeopathic methods. Home med list not yet obtained Gastroesophageal reflux disease History of recurrent herpes labialis Monitor vital signs Monitor CBC Monitor CMP Follow-up urine culture continue IV fluids continue IV Rocephin PT and OT consulted Labs and medication were reviewed.. Continue same treatment. Continue with symptomatic treatment. Resume home medication. Monitor labs and vitals. DVT and GI prophylaxis. Further recommendations as per clinical course of the patient Dictation was produced using [employer] dictation software. please excuse any grammatical, word or spelling errors. Objective - Vital Signs Vital signs: Vital Signs Temp 98.1 F 02/20/24 12:57 Pulse 82 02/20/24 12:57 Resp 16 02/20/24 12:57 BP 109/73 02/20/24 12:57 Pulse Ox 94 L 02/20/24 12:57 FiO2 Intake & Output 02/19/24 02/20/24 02/20/24 18:59 06:59 18:59 Output Total 650 Balance -650 Output: Urine 650 Other: Voiding Method External Catheter External Catheter External Catheter # Voids 2 - Labs CBC & Chem 7: 02/19/24 05:12 02/19/24 05:12 Labs: Microbiology - Last 24 Hours (Table) 02/18/24 00:55 Blood Culture - Preliminary Blood 02/18/24 00:40 Blood Culture - Preliminary Blood
[2024-02-21 12:17] VITALS: RESP 16
--- NOTE | 2024-02-21 14:28 | P.DS ---
Providers Date of admission: 02/18/24 01:21 Expected date of discharge: 02/21/24 Attending physician: Karlo Rodriguez MD Primary care physician: Jill Archibald [facility] Course: Final Diagnoses: Sepsis secondary to acute UTI, completed antibiotic treatment. Leukocytosis secondary to the above, resolved Hypertension, controlled Pressure injury stage I, coccyx, present on admission. Turn every 2 hours with barrier cream application Chronic atrial fibrillation,not on any beta blockers or anticoagulation therapy, using homeopathic methods. Dehydration Acute metabolic encephalopathy secondary to all the above in a patient with underlying chronic dementia. Gastroesophageal reflux disease History of recurrent herpes labialis Hospital course:This is a 88-year-old female with past medical history significant for recurrent UTIs with E. coli , Klebsiella pneumonia , dementia, aphasia, atrial fibrillation-not on anticoagulation, gastroesophageal reflux disease, hypertension, dementia and multiple other medical issues admitted al tered mental status, suspicious for acute UTI, fall. In the past, patient was maintained on prophylactic amoxicillin; current home med list has not yet been obtained. No family at bedside. ER reports daughter at the bedside last night, reported patient fell the night before-unwitnessed. Discovered on the ground between her bed and bathroom .unknown if patient sustained head trauma .no apparent injuries so they did not seek treatment at that time. Brain CT reported no acute intracranial hemorrhage, midline shift or mass effect.following day, patient became more confused with nonsensical speech, positive hallucinations, and worsening tremors. Reported patient has baseline confusion, disoriented to time/year, but recognizes her children. Chest x-ray reported slightly prominent interstitial markings. Troponin negative x 1. EKG reported atrial fibrillation with RVR. No reported fevers. On exam patient is confused, denies pain, abdominal/flank pain-and is nontender to palpation. Denies chest pain, palpitations or shortness of breath. Afebrile, WBC 11.9. Hemoglobin 13.4, platelets 171, INR 1.1 electrolytes within normal limits, bicarb 22, BUN 29, creatinine 0.76. Glucose 106. Lactic acid 1.5. UA reported rare mucus, hyaline casts, many bacteria, 56 WBCs, large leukocytes, negative nitrates, urine culture ordered. Toxicology screen reported less than 10 serum alcohol. On admission.Tachycardic and hypertensive, maintaining O2 sats in the high 90s on room air. swimming pool maintenance supervisor at bedside. Significant clinical improvement. Antibiotic treatment completed. Afebrile, normal WBC. Consuming 50 to 75% of meals. Tolerating well with no nausea or vomiting. Denies chest pain, palpitations or shortness of breath.Maintaining O2 sats in the high 90s on room air. Blood pressures controlled. Renal function stable. Yesterday daughter at the bedside, reported patient was back to her baseline dementia state. Patient will be discharged to [facility] rehab in a stable condition with guarded prognosis. The impression and plan of care has been dictated as directed. : I performed a history and examination of this patient, discussed the same with the dictator. I agree with the dictator's note ,documented as a scribe. Any additional findings or plans will be noted. Patient Condition at Discharge: Stable Plan - Discharge Summary Discharge Rx Participant: Yes New Discharge Prescriptions: New Aspirin 81 mg PO DAILY tab Acetaminophen Tab [Tylenol] 650 mg PO Q6HR PRN tab PRN Reason: Mild Pain Or Fever > 100.5 polyethylene glycoL 3350 [Miralax] 17 gm PO DAILY packet Famotidine [Pepcid] 20 mg PO DAILY #30 tablet Discharge Medication List Acetaminophen Tab [Tylenol] 650 mg PO Q6HR PRN tab 02/21/24 [Rx] Aspirin 81 mg PO DAILY tab 02/21/24 [Rx] Famotidine [Pepcid] 20 mg PO DAILY #30 tablet 02/21/24 [Rx] polyethylene glycoL 3350 [Miralax] 17 gm PO DAILY packet 02/21/24 [Rx] Follow up Appointment(s)/Referral(s): Karlo Rodriguez MD [STAFF PHYSICIAN] - 1 Week Activity/Diet/Wound Care/Special Instructions: [facility] subacute rehab Diet dysphagia level 1 pured with assistance CBC, BMP in 3 days
[2024-02-21] MEDS: polyethylene glycoL 3350 17 GM POWD.PACK PO SCH (15:33)
--- NOTE | 2024-02-21 17:26 | CDI ---
Documentation Clarification Form Date: 02/21/2024 05:23:24 PM From: Milena Rodriguez RN CCDS Phone: [phone] Admit Date: 02/18/2024 01:21:00 AM Patient Name: Dinorah Aragon Visit Number: [id number] Discharge Date: ATTENTION: The Clinical Documentation Specialists (CDI) and [facility] Coding Staff appreciate your assistance in clarifying documentation. Please respond to the clarification below the line at the bottom and electronically sign. The CDI & [facility] Coding staff will review the response and follow-up if needed. Please note: Queries are made part of the Legal Health Record. If you have any questions, please contact the author of this message via ITS. Dr. Karlo Rodriguez Sepsis is documented 02/17 HP through 02/19 Medicine note which may lack sufficient clinical evidence/support in the medical record. Additional clarification is requested. History/Risk Factors: 88 year old male presents to the ED with altered mental status a fall and suspicious for a fall. Medical History: Frequent UTIs, Atrial Fibrillation not on anticoagulation and Dementia. 02/18, Clinical Indicators: VSS, 02/16 21:55: B/P 169/94; HR 129; Temp 98.2 F Oral; RR 20; SpO2 95% ra Labs, 02/16 23:59: Wbc 11.9; Neutrophils 10.9; Urine analysis: Appearance Cloudy; Protein Trace; Blood Small; Leukocyte Esterase Large; Wbc 56; Amorphous Sediment Many; Bacteria Many; Hyaline casts 7; Urine Mucus Rare. Brain CT, 02/17: No acute intracranial hemorrhage, midline shift or mass effect. CXR, 02/17: Cardiomegaly, Slightly prominent interstitial markings. Treatment: 02/17 Rocephin IVP x 1; 02/17 Acetaminophen 1,0000mg IVPB x 1; 02/17 02/20 Ceftriaxone IVPB Q24H. After work up and study, please clarify which diagnosis is most appropriate? [ X ] Sepsis ruled out [ ] Sepsis is a valid diagnosis as evidence by the following: (Please add rationale): [ ] Other, please specify [ ] Unable to determine SIRS Criteria: 2 or more of the following may indicate SIRS Temperature < 96.8F (36C) or > 101.0F (38.3C) Heart Rate > 90 bpm Respiratory Rate > 20 breaths/min or PaCO2 < 32 mmHg White Blood Cell Count > 12,000 or < 4,000 cells/mm3 or > 10% bands (Template Last Reviewed: August 2023) MTDD
[2024-02-22 12:24] VITALS: BP 136/76; PULSE 93; TEMP 97.9
== END 2024-02-22 16:03 | DRG 689 ==
LOC: EC 21:43 → 5NMEDONC 02-18 01:21
PROVIDERS: ADMIT Family Medicine; ATTEND Family Medicine
DX: N39.0 Urinary tract infection, site not specified (principal); G93.41 Metabolic encephalopathy; I48.20 Chronic atrial fibrillation, unspecified; F03.92 Unspecified dementia, unspecified severity, with psychotic disturbance; R47.01 Aphasia; W19.XXXA Unspecified fall, initial encounter; I10 Essential (primary) hypertension; L89.151 Pressure ulcer of sacral region, stage 1; E86.0 Dehydration; R32 Unspecified urinary incontinence; M19.90 Unspecified osteoarthritis, unspecified site; I83.90 Asymptomatic varicose veins of unspecified lower extremity; K21.9 Gastro-esophageal reflux disease without esophagitis; B00.1 Herpesviral vesicular dermatitis; Z79.82 Long term (current) use of aspirin; Z88.2 Allergy status to sulfonamides; Z28.310 Unvaccinated for COVID-19; Z91.81 History of falling
CPT/HCPCS: 36415; 70450; 71045; 80048; 80053; 80306; 80320; 81001; 82140; 83605; 84443; 84484; 85025; 85610; 85730; 87040; 93005; 96365; 96366; 96375; 99285

== ENCOUNTER → 2024-03-20 | Outpatient (CLI) | payer MEDICARE, BC | END | disposition home or self-care (01) | LOC: LABPRL 20:25 | PROVIDERS: ATTEND Internal Medicine Geriatric Medicine | CPT/HCPCS: 87077; 87086; 87186 ==

== ENCOUNTER 2024-03-21 | Inpatient (IN) | payer MEDICARE, BC ==
[2024-03-21] MEDS ORDERED: cefTRIAXone IN SWFI 1,000 MG/10 ML SYRINGE IVP ONE (13:21)
[2024-03-21] MEDS ORDERED: SODIUM CHLORIDE 0.9% 100 ML BAG IV ONE (13:40)
[2024-03-21] MEDS ORDERED: SODIUM CHLORIDE 0.9% 1,000 ML BAG ONE (13:40)
[2024-03-21] MEDS ORDERED: DILTIAZEM 125 MG/25 ML VIAL IV ONE (13:40)
[2024-03-22] MEDS ORDERED: DEXTROSE 5% IN WATER 1,000 ML BAG ONE (08:00)
[2024-03-22] MEDS ORDERED: LIDOCAINE 4% PATCH TOPICAL ONE (18:10)
[2024-03-23] MEDS ORDERED: FAMOTIDINE 20 MG TAB ONE (06:20)
[2024-03-23] MEDS ORDERED: DEXTROSE 5% IN WATER 1,000 ML BAG ONE (08:00)
[2024-03-23] MEDS ORDERED: SODIUM CHLORIDE 0.9% 50 ML BAG ONE (08:00)
[2024-03-23] MEDS ORDERED: cefTRIAXone 2 GM VIAL ONE (16:42)
[2024-03-24] MEDS ORDERED: METOPROLOL TARTRATE 25 MG TAB ONE (17:47)
[2024-03-24] MEDS ORDERED: POTASSIUM CHLORIDE 400 ML ONE (17:48)
[2024-03-24] MEDS ORDERED: SENNOSIDES 8.6 MG TAB ONE (17:48)
[2024-03-25] MEDS ORDERED: cefTRIAXone 2 GM VIAL ONE (09:47)
[2024-03-25] MEDS ORDERED: LIDOCAINE 4% PATCH TOPICAL ONE (09:55)
[2024-03-25] MEDS ORDERED: METOPROLOL TARTRATE 25 MG TAB ONE (17:12)
[2024-03-25] MEDS ORDERED: CHOLECALCIFEROL 25 MCG (1000 IU) TABLET ONE ×2 (17:13→17:16)
[2024-03-26] MEDS ORDERED: METOPROLOL TARTRATE 25 MG TAB ONE ×3 (09:29→16:38)
[2024-03-26] MEDS ORDERED: ASPIRIN 81 MG ONE (09:29)
[2024-03-26] MEDS ORDERED: SENNOSIDES 8.6 MG TAB ONE ×2 (09:29→22:42)
[2024-03-26] MEDS ORDERED: DILTIAZEM CD 120 MG CAP.ER.24H PO ONE (09:29)
[2024-03-26] MEDS ORDERED: FAMOTIDINE 20 MG TAB ONE (09:29)
[2024-03-26] MEDS ORDERED: cefTRIAXone 2 GM VIAL ONE (09:30)
[2024-03-26] MEDS ORDERED: LIDOCAINE 4% PATCH TOPICAL ONE (09:32)
[2024-03-27] MEDS ORDERED: cefTRIAXone 2 GM VIAL ONE (12:38)
[2024-03-28] MEDS ORDERED: DEXTROSE 5% IN WATER 1,000 ML BAG ONE (10:00)
[2024-03-28] MEDS ORDERED: SODIUM CHLORIDE 0.9% 50 ML BAG ONE (10:00)
[2024-03-28] MEDS ORDERED: cefTRIAXone 2 GM VIAL ONE (10:36)
[2024-03-28] MEDS ORDERED: LIDOCAINE 4% PATCH TOPICAL ONE (10:36)
[2024-03-28] MEDS ORDERED: METOPROLOL TARTRATE 25 MG TAB ONE (10:47)
[2024-03-28] MEDS ORDERED: ZINC OXIDE PASTE (Z-GUARD) 1 APPLIC TOPICAL ONE (10:53)
[2024-03-28] MEDS ORDERED: LORazepam 2 MG/ML INJ ONE (15:45)
[2024-03-28] MEDS ORDERED: SENNOSIDES 8.6 MG TAB ONE (20:26)
[2024-03-29] MEDS ORDERED: SODIUM CHLORIDE 0.9% 50 ML BAG ONE (08:00)
[2024-03-29] MEDS ORDERED: LIDOCAINE 4% PATCH TOPICAL ONE (10:07)
[2024-03-29] MEDS ORDERED: cefTRIAXone 2 GM VIAL ONE (10:07)
[2024-03-29] MEDS ORDERED: METOPROLOL TARTRATE 25 MG TAB ONE (10:08)
[2024-03-29] MEDS ORDERED: LORazepam 2 MG/ML INJ ONE (18:39)
[2024-03-30] MEDS ORDERED: SODIUM CHLORIDE 0.9% 50 ML BAG IV ONE (08:00)
[2024-03-30] MEDS ORDERED: ASPIRIN 81 MG ONE (09:54)
[2024-03-30] MEDS ORDERED: METOPROLOL TARTRATE 25 MG TAB ONE ×2 (09:54→17:58)
[2024-03-30] MEDS ORDERED: FAMOTIDINE 20 MG TAB ONE (09:54)
[2024-03-30] MEDS ORDERED: CHOLECALCIFEROL 25 MCG (1000 IU) TABLET ONE (09:54)
[2024-03-30] MEDS ORDERED: cefTRIAXone 2 GM VIAL ONE (09:55)
[2024-03-30] MEDS ORDERED: SENNOSIDES 8.6 MG TAB ONE (09:55)
[2024-03-30] MEDS ORDERED: LORazepam 2 MG/ML INJ ONE (17:57)
[2024-03-31] MEDS ORDERED: CALCIUM CHLORIDE 1 GM/10 ML VIAL ONE (08:00)
[2024-03-31] MEDS ORDERED: FAT EMULSION 20% 250 ML BAG ONE (08:00)
[2024-03-31] MEDS ORDERED: MAGNESIUM SULFATE 0.5 GM/ML ONE (08:00)
[2024-03-31] MEDS ORDERED: TRACE (CONC-1ML/DOSE) 1 ML VIAL IV ONE (08:00)
[2024-03-31] MEDS ORDERED: MVI, ADULT NO.4 WITH VIT K 10 ML VIAL IV ONE (08:00)
[2024-03-31] MEDS ORDERED: SODIUM CHLORIDE 0.9% 50 ML BAG ONE (08:00)
[2024-03-31] MEDS ORDERED: SODIUM ACETATE 2 MEQ/ML IV ONE (08:00)
[2024-03-31] MEDS ORDERED: ASPIRIN 81 MG ONE (08:50)
[2024-03-31] MEDS ORDERED: CHOLECALCIFEROL 25 MCG (1000 IU) TABLET ONE (08:50)
[2024-03-31] MEDS ORDERED: FAMOTIDINE 20 MG TAB ONE ×2 (08:50→09:12)
[2024-03-31] MEDS ORDERED: METOPROLOL TARTRATE 25 MG TAB ONE (08:51)
[2024-03-31] MEDS ORDERED: cefTRIAXone 2 GM VIAL ONE (08:52)
[2024-03-31] MEDS ORDERED: SENNOSIDES 8.6 MG TAB ONE ×2 (08:52→22:57)
[2024-03-31] MEDS ORDERED: RIVAROXABAN 10 MG TAB PO ONE (08:52)
[2024-03-31] MEDS ORDERED: MEMANTINE 10 MG TAB ONE (08:52)
[2024-03-31] MEDS ORDERED: MEMANTINE 5 MG TAB ONE ×2 (09:12→22:58)
[2024-03-31] MEDS ORDERED: LIDOCAINE 4% PATCH TOPICAL ONE (09:12)
[2024-04-01] MEDS ORDERED: LEVOTHYROXINE 50 MCG TAB ONE (06:38)
[2024-04-01] MEDS ORDERED: MAGNESIUM SULFATE 0.5 GM/ML ONE (08:00)
[2024-04-01] MEDS ORDERED: CALCIUM CHLORIDE 1 GM/10 ML VIAL ONE (08:00)
[2024-04-01] MEDS ORDERED: TRACE (CONC-1ML/DOSE) 1 ML VIAL IV ONE (08:00)
[2024-04-01] MEDS ORDERED: SODIUM ACETATE 2 MEQ/ML IV ONE (08:00)
[2024-04-01] MEDS ORDERED: MVI, ADULT NO.4 WITH VIT K 10 ML VIAL IV ONE (08:00)
[2024-04-01] MEDS ORDERED: SODIUM CHLORIDE 0.9% 50 ML BAG ONE (08:00)
[2024-04-01] MEDS ORDERED: cefTRIAXone 2 GM VIAL ONE (09:43)
[2024-04-01] MEDS ORDERED: ASPIRIN 325 MG TAB ONE (09:43)
[2024-04-01] MEDS ORDERED: METOPROLOL SUCCINATE (ER) 25 MG TAB.ER.24H PO ONE (09:43)
[2024-04-01] MEDS ORDERED: CHOLECALCIFEROL 25 MCG (1000 IU) TABLET ONE (09:43)
[2024-04-01] MEDS ORDERED: SENNOSIDES 8.6 MG TAB ONE (09:43)
[2024-04-01] MEDS ORDERED: LIDOCAINE 4% PATCH TOPICAL ONE (09:43)
[2024-04-01] MEDS ORDERED: MEMANTINE 5 MG TAB ONE (09:43)
[2024-04-01] MEDS ORDERED: FAMOTIDINE 20 MG/2 ML VIAL ONE (09:44)
[2024-04-01] MEDS ORDERED: FAMOTIDINE 20 MG TAB ONE (09:47)
[2024-04-02] MEDS ORDERED: NALOXONE 0.4 MG/ML 1 ML VIAL IVP PRN (00:24)
[2024-04-02] MEDS ORDERED: NA PHOS,M-B/NA PHOS,DI-BA 133 ML ENEMA RECTAL PRN (00:26)
[2024-04-02] MEDS: DEXTROSE 5% IN WATER 1,000 ML IV SCH (03:39)
[2024-04-02 04:09] LABS: Ionized Calcium 4.9 mg/dL (4.5-5.3)
[2024-04-02 04:44] LABS: ALT 12 U/L (4-34); AST 18 U/L (14-36); African American GFR (CKD) >90 (>60 ml/min/1.73 sqM); Albumin 2.4 g/dL (3.5-5.0); Albumin/Globulin Ratio 0.9; Alkaline Phosphatase 68 U/L (38-126); Anion Gap 4 mmol/L; Blood Urea Nitrogen 21 mg/dL (7-17); Calcium 8.8 mg/dL (8.4-10.2); Carbon Dioxide 26 mmol/L (22-30); Chloride 106 mmol/L (98-107); Globulin 2.7 g/dL; Glucose 98 mg/dL (74-99); Magnesium 1.8 mg/dL (1.6-2.3); Non-African American GFR(CKD) 86 (>60 ml/min/1.73 sqM); Phosphorus 3.1 mg/dL (2.5-4.5); Potassium 3.9 mmol/L (3.5-5.1); Sodium 136 mmol/L (137-145); Total Bilirubin 0.5 mg/dL (0.2-1.3); Total Protein 5.1 g/dL (6.3-8.2)
[2024-04-02] MEDS: 1: MVI, ADULT NO.4 WITH VIT K 10 ML, TRACE (CONC-1ML/DOSE) 1 ML in AMINO ACID 5%-D20W+LY IV SCH (05:03)
[2024-04-02 05:36] LABS: Glucose,Whole Blood 125 mg/dL (70-110)
[2024-04-02] MEDS: 1: MVI, ADULT NO.4 WITH VIT K 10 ML, TRACE (CONC-1ML/DOSE) 1 ML in AMINO ACID 5%-D15W+LY IV SCH (06:40)
[2024-04-02] MEDS: DILTIAZEM CD 120 MG CAP.ER.24H PO SCH (10:13)
[2024-04-02] MEDS: MAGNESIUM HYDROXIDE 2,400 MG/30 ML CUP PO PRN (10:27)
[2024-04-02] MEDS: ENOXAPARIN 100 MG/ML SYRINGE SQ SCH (10:27)
[2024-04-02] MEDS: LIDOCAINE 4% PATCH TOPICAL SCH (10:28)
[2024-04-02] MEDS: SENNOSIDES 8.6 MG TAB PO SCH (10:28)
[2024-04-02] MEDS: METOPROLOL TARTRATE 25 MG TAB PO SCH (10:28)
[2024-04-02] MEDS: ASPIRIN 81 MG PO SCH (10:28)
[2024-04-02] MEDS: MEMANTINE 5 MG TAB PO SCH (10:28)
[2024-04-02] MEDS: FAMOTIDINE 20 MG TAB PO SCH (10:28)
[2024-04-02 12:01] LABS: Glucose,Whole Blood 110 mg/dL (70-110)
--- NOTE | 2024-04-02 12:45 | P.PN ---
Subjective addendum: Please note Electronic system was down up to 04/01/2024 and everything was documented on paper chart. This is a pleasant 88 years old female was admitted to the hospital because of not eating well Patient been suspected to have some elements of metabolic encephalopathy, she was treated with antibiotic and she finished treatment but no much improvement. Patient today is awake, but she does not talk and she does not answer questions, she mumbles. She cannot tell even her name. She could not recognize her daughter Sasha 4 months as she states. Family were concerned that patient was not getting good feet at her half-way and requested to give her a short trial of TPN which was started last 2 to 3 days and she tolerates that as well. Patient still not eating most likely related to her brain problems. She denies any other complaint, she looks calm and pleasant. Daughter at bedside She is hemodynamically stable Labs reviewed Objective - Vital Signs Vital signs: Vital Signs Temp 97.6 F 04/02/24 07:23 Pulse 88 04/02/24 07:23 Resp 19 04/02/24 07:23 BP 111/67 04/02/24 07:23 Pulse Ox 93 L 04/02/24 07:23 FiO2 Intake & Output 04/01/24 04/02/24 04/02/24 18:59 06:59 18:59 Weight 54.5 kg Other: Voiding Method Diaper - Exam -GENERAL: The patient is awake but disoriented to time place and person, she does not answer questions, she mumbles, not in any acute distress. Well dev eloped, well nourished. HEENT: Pupils are round and equally reacting to light. EOMI. No scleral icterus. No conjunctival pallor. Normocephalic, atraumatic. No pharyngeal erythema. No thyromegaly. CARDIOVASCULAR: S1 and S2 present. No murmurs, rubs, or gallops. PULMONARY: Chest is clear to auscultation, no wheezing , no crackles. ABDOMEN: Soft, nontender, nondistended, normoactive bowel sounds. No palpable organomegaly. MUSCULOSKELETAL: No joint swelling or deformity. EXTREMITIES: No cyanosis, clubbing, or pedal edema. NEUROLOGICAL: Gross neurological examination did not reveal any focal deficits. SKIN: No rashes. no petechiae. - Labs CBC & Chem 7: 04/02/24 02:22 Labs: Abnormal Lab Results - Last 24 Hours (Table) 04/02/24 04/02/24 Range/Units 02:22 05:35 Sodium 136 L (137-145) mmol/L BUN 21 H (7-17) mg/dL Creatinine 0.50 L (0.52-1.04) mg/dL POC Glucose (mg/dL) 125 H (70-110) mg/dL Total Protein 5.1 L (6.3-8.2) g/dL Albumin 2.4 L (3.5-5.0) g/dL Assessment and Plan Assessment: Advanced/end-stage dementia Malnutrition, calorie protein severe malnutrition secondary to advanced dementia UTI and right leg cellulitis, efficiently treatment Chronic kidney disease Sick sinus syndrome Plan: Continue with TPN upon family request, has been infusing for the last 2 days with no improvement in patient condition Patient is may be appropriate for hospice care regarding her advanced dementia. Her daughter Sasha agreeable with that as well as Carrie another daughter who is POA and he is also a geriatric social worker. Family refused PEG tube patient is DNR GI and DVT prophylaxis Placement before Prognosis is poor I have lengthy discussion with both daughter on several occasions, they are agreeable with the current plan
[2024-04-02] MEDS: bisacodyL 10 MG SUPP RECTAL SCH (14:03)
--- NOTE | 2024-04-02 15:03 | P.PN ---
Subjective Progress Note Date: 04/02/24 Patient was seen for a follow-up. Please refer to my notes from the paper chart. Patient's daughter was present. She states that patient is not fidgety anymore. However she is still difficult to understand, cannot understand anything she was saying, could not tell her name. Patient is getting TPN now. Patient is sleeping at this time. She was awake in the morning. Objective - Vital Signs Vital signs: Vital Signs Temp 97.6 F 04/02/24 07:23 Pulse 88 04/02/24 07:23 Resp 19 04/02/24 07:23 BP 111/67 04/02/24 07:23 Pulse Ox 93 L 04/02/24 07:23 FiO2 Intake & Output 04/01/24 04/02/24 04/02/24 18:59 06:59 18:59 Output Total 425 Balance -425 Weight 54.5 kg Output: Urine 425 Other: Voiding Method Diaper - Exam Patient is asleep at this time. Detailed testing deferred. - Labs CBC & Chem 7: 04/02/24 02:22 Labs: Abnormal Lab Results - Last 24 Hours (Table) 04/02/24 04/02/24 Range/Units 02:22 05:35 Sodium 136 L (137-145) mmol/L BUN 21 H (7-17) mg/dL Creatinine 0.50 L (0.52-1.04) mg/dL POC Glucose (mg/dL) 125 H (70-110) mg/dL Total Protein 5.1 L (6.3-8.2) g/dL Albumin 2.4 L (3.5-5.0) g/dL Assessment and Plan Assessment: * Altered mental status due to toxic metabolic encephalopathy * Advanced dementia with behavioral disturbance * UTI with sepsis, improved * Renal insufficiency, resolved * Chronic atrial fibrillation, noncompliance with anticoagulation. Plan: * Patient is on ceftriaxone, ID following. * Continue Namenda * Patient starting TPN. * Family has not made decision about feeding tube. * Will check EEG in the morning. * Patient is no code.
[2024-04-02] MEDS: CHOLECALCIFEROL 25 MCG (1000 IU) TABLET PO SCH (17:09)
[2024-04-02] MEDS: RIVAROXABAN 20 MG TAB PO SCH (17:11)
[2024-04-02 18:45] LABS: Glucose,Whole Blood 111 mg/dL (70-110)
--- NOTE | 2024-04-02 21:23 | P.PN ---
Subjective Progress Note Date: 04/02/24 Principal diagnosis: Reason for follow visit Klebsiella urinary tract infection Patient is a 88-year-old female with multiple comorbidities with initial admission to the hospital mental status changes did have a positive UA and urine positive for Klebsiella prompted this consultation. On today's evaluation that is 04/02/2024,the patient remains to be afebrile patient is slightly more awake alert today and was able to eat some of her food with the help of the daughter at the bedside not checking the food vomiting diarrhea early in the changes reported. Patient did have a creatinine 0.50 liver isms are normal no CBC was done today Objective - Vital Signs Vital signs: Vital Signs Temp 97.6 F 04/02/24 07:23 Pulse 88 04/02/24 07:23 Resp 19 04/02/24 07:23 BP 111/67 04/02/24 07:23 Pulse Ox 93 L 04/02/24 07:23 FiO2 Intake & Output 04/01/24 04/02/24 04/02/24 18:59 06:59 18:59 Output Total 425 Balance -425 Weight 54.5 kg Output: Urine 425 Other: Voiding Method Diaper - Exam GENERAL DESCRIPTION: An elderly female lying in bed in no distress RESPIRATORY SYSTEM: Unlabored breathing , decreased breath sounds at bases HEART: S1 S2 regular rate and rhythm , ABDOMEN: Soft , no tenderness EXTREMITIES: No edema feet - Labs CBC & Chem 7: 04/02/24 02:22 Labs: Abnormal Lab Results - Last 24 Hours (Table) 04/02/24 04/02/24 Range/Units 02:22 05:35 Sodium 136 L (137-145) mmol/L BUN 21 H (7-17) mg/dL Creatinine 0.50 L (0.52-1.04) mg/dL POC Glucose (mg/dL) 125 H (70-110) mg/dL Total Protein 5.1 L (6.3-8.2) g/dL Albumin 2.4 L (3.5-5.0) g/dL Assessment and Plan (1) Acute pyelonephritis Current Visit: No Status: Acute Code(s): N10 - ACUTE PYELONEPHRITIS SNOMED Code(s): 40012622 Plan: 1patient presented hospital mental status changes weakness which is multifactorial with a component of UTI urine was finalized with Klebsiella 2-patient has received adequate IV Rocephin which was discontinued as of 04/01/2024 3-we will monitor the patient closely off antibiotic daughter at the bedside questions were answered Dictation was produced using [employer] dictation software. please excuse any grammatical, word or spelling errors. Time with Patient: Less than 30
[2024-04-02] MEDS: ACETAMINOPHEN TAB 325 MG TAB PO PRN (22:25)
[2024-04-02 23:57] LABS: Glucose,Whole Blood 121 mg/dL (70-110)
[2024-04-03 06:10] LABS: Glucose,Whole Blood 123 mg/dL (70-110)
[2024-04-03 09:16] LABS: ALT 15 U/L (8-44); AST 26 U/L (13-35); Albumin 2.8 g/dL (3.8-4.9); Albumin/Globulin Ratio 1.17 Ratio (1.60-3.17); Alkaline Phosphatase 73 U/L (41-126); BUN/Creat Ratio 61.25 Ratio (12.00-20.00); Blood Urea Nitrogen 24.5 mg/dL (9.0-27.0); Calcium 8.5 mg/dL (8.7-10.3); Carbon Dioxide 26.4 mmol/L (21.6-31.8); Chloride 104 mmol/L (96-109); Globulin 2.4 g/dL (1.6-3.3); Glucose 107 mg/dL (70-110); Phosphorus 2.8 mg/dL (2.4-5.1); Potassium 4.3 mmol/L (3.5-5.5); Sodium 138 mmol/L (135-145); Total Bilirubin 0.4 mg/dL (0.3-1.2); Total Protein 5.2 g/dL (6.2-8.2)
[2024-04-03] MEDS: METOPROLOL TARTRATE 25 MG TAB ONE ×3 (11:21→11:31)
[2024-04-03] MEDS: ASPIRIN 81 MG ONE ×2 (11:21→11:31)
[2024-04-03] MEDS: FAMOTIDINE 20 MG TAB ONE ×2 (11:21→11:31)
[2024-04-03] MEDS: bisacodyL 10 MG SUPP RECTAL ONE ×2 (11:21→11:31)
[2024-04-03] MEDS: ACETAMINOPHEN TAB 325 MG TAB ONE (11:22)
[2024-04-03 11:40] LABS: Glucose,Whole Blood 85 mg/dL (70-110)
[2024-04-03 17:09] LABS: Glucose,Whole Blood 97 mg/dL (70-110)
[2024-04-04 00:08] LABS: Glucose,Whole Blood 120 mg/dL (70-110)
[2024-04-04 05:20] LABS: African American GFR (CKD) >90 (>60 ml/min/1.73 sqM); Anion Gap 3 mmol/L; Blood Urea Nitrogen 27 mg/dL (7-17); Calcium 8.5 mg/dL (8.4-10.2); Carbon Dioxide 26 mmol/L (22-30); Chloride 104 mmol/L (98-107); Glucose 105 mg/dL (74-99); Non-African American GFR(CKD) >90 (>60 ml/min/1.73 sqM); Phosphorus 3.4 mg/dL (2.5-4.5); Potassium 4.4 mmol/L (3.5-5.1); Sodium 133 mmol/L (137-145)
[2024-04-04 05:29] LABS: Glucose,Whole Blood 111 mg/dL (70-110)
--- NOTE | 2024-04-04 09:56 | CDI ---
Documentation Clarification Form Date: 04/04/2024 09:40:29 AM From: Milena Rodriguez RN CCDS Phone: [phone] Admit Date: 03/21/2024 12:00:00 AM Patient Name: Dinorah Aragon Visit Number: [id number] Discharge Date: ATTENTION: The Clinical Documentation Specialists (CDI) and [facility] Coding Staff appreciate your assistance in clarifying documentation. Please respond to the clarification below the line at the bottom and electronically sign. The CDI & [facility] Coding staff will review the response and follow-up if needed. Please note: Queries are made part of the Legal Health Record. If you have any questions, please contact the author of this message via ITS. NATALYA Childers, NPC Sepsis is documented [insert date, location] which may lack sufficient clinical evidence/support in the medical record. Additional clarification is requested. History/Risk Factors: 88 year old female presented to the ED with not eating well and weakness. Medical history: Advanced dementia, CKD, SSS. Clinical Indicators: 03/21 VSS: B/P 132/77; P 113; R 16; SpO2 98% ra Urine culture: Klebsiella, ID note 04/02 04/02, Neurology note: UTI with sepsis, improved. Treatment: 03/21 04/01 Rocpehin ivpb After work up and study, please clarify which diagnosis is most appropriate? [ x ] Sepsis ruled out [ ] Sepsis is a valid diagnosis as evidence by the following: (Please add rationale): [ ] Other, please specify [ ] Unable to determine (Template Last Reviewed: August 2023) MTDD
--- NOTE | 2024-04-04 10:14 | EEG ---
ELECTROENCEPHALOGRAM REPORT CLINICAL HISTORY: This is an 88-year-old woman with history of dementia with altered mental status. The video EEG is obtained to evaluate for seizure epileptiform activity. RELEVANT MEDICATION: Memantine. The patient is not on any antiseizure medication. EEG TYPE: A routine 21-channel EEG with video using the 10/20 electrode placement system. DESCRIPTION: Wakefulness is only obtained. It is hard to assess the background because of the severe myogenic artifact. But background appears low voltage of 2 to 3 hertz activity intermixed with questionable theta activity. There is no physiological stage 2 sleep architecture. There is no focal slowing that is appreciable. Again, there is diffuse severe myogenic artifact. INTERICTAL AND ICTAL: There is no epileptiform discharge, or seizure from the old patient of the testing. ACTIVATION PROCEDURE: Photic stimulation and hyperventilation is not performed. CLINICAL INTERPRETATION: This EEG is limited because of the diffuse myogenic artifact but from the limited patient of this study, the background is severely encephalopathy. There is no focal slowing, epileptiform discharge, or seizure on the EEG. Clinical correlation is recommended. MMTAMARAL / IJN: [id number] / JUAN
[2024-04-04 11:40] LABS: Glucose,Whole Blood 121 mg/dL (70-110)
--- NOTE | 2024-04-04 11:52 | P.PN ---
Subjective Progress Note Date: 04/04/24 This is an 88-year-old female with advanced dementia, failure to thrive, admitted with acute pyelonephritis, cultures finalized with Klebsiella, completed IV antibiotics of IV ceftriaxone as per infectious disease. Renal function stable. Currently continues on TPN, recent LFTs within normal limits. Afebrile. Maintaining O2 sats in the low 90s on room air. Patient is nonverbal, not following commands, not attempting to answer questions. Objective - Vital Signs Vital signs: Vital Signs Temp 97.6 F 04/04/24 07:09 Pulse 92 04/04/24 07:09 Resp 16 04/04/24 07:09 BP 110/52 04/04/24 07:09 Pulse Ox 100 04/04/24 07:09 FiO2 Intake & Output 04/03/24 04/04/24 04/04/24 18:59 06:59 18:59 Intake Total 1011 Output Total 1475 Balance 1011 -1475 Weight 55.5 kg 55.5 kg Intake: Intake, IV Titration 1011 Amount Mvi, Adult No.4 with Vit 1011 K 10 ml Trace (Conc-1Ml/ Dose) 1 ml In Amino Acid 5%-D15w+Lytes*E* 1,000 ml @ 70 mls/hr IV .BY DURATION [facility] Rx#: [id number] Output: Urine 1475 Other: Voiding Method Indwelling Catheter Indwelling Catheter # Voids 3 # Bowel Movements 2 - Exam PHYSICAL EXAM: VITAL SIGNS: [As above] GENERAL: Thin,elderly female sitting up in bed, fatigued, occasionally opens eyes spontaneously, currently nonverbal HEENT: Conjunctivae normal. No scleral icterus NECK: Supple, no JVD. CARDIOVASCULAR: S1, S2 regular. No murmur RESPIRATION: Unlabored, equal air entry, bilateral bases diminished. ABDOMEN: Soft, nondistended, nontender . No guarding. Positive bowel sounds. LEGS: No edema. no swelling NERVOUS SYSTEM: Limited-advanced dementia. Skin: Warm and dry, no rash noted - Labs CBC & Chem 7: 04/04/24 04:15 Labs: Abnormal Lab Results - Last 24 Hours (Table) 04/04/24 04/04/24 04/04/24 Range/Units 00:06 04:15 05:27 Sodium 133 L (137-145) mmol/L BUN 27 H (7-17) mg/dL Creatinine 0.41 L (0.52-1.04) mg/dL Glucose 105 H (74-99) mg/dL POC Glucose (mg/dL) 120 H 111 H (70-110) mg/dL Assessment and Plan Assessment: Acute pyelonephritis, culture finalized with Klebsiella, completed antibiotic therapy as per infectious disease Acute on chronic toxic, metabolic encephalopathy, multifactorial, heightened by the above, in a patient with advanced dementia Moderate protein calorie malnutrition, BMI 21, albumin 2.8, currently on TPN Chronic atrial fibrillation Gastroesophageal reflux disease Hypertension Plan: Continue on current medication resume ,monitoring and symptomatic treatment. [facility] management [facility] met with family/daughter-POA on Wednesday03/31/24. Apparently yesterday [facility] liaison met with daughter/POA stating she wishes to pursue hospice after placement of a PEG tube. No family at bedside this morning during rounding; PCP, Dr. Rodriguez will contact daughter/POA to update and discuss plan of care. Maintain supportive care. Prognosis guarded given multiple complex medical issues. The impression and plan of care has been dictated as directed. : I performed a history and examination of this patient, discussed the same with the dictator. I agree with the dictator's note ,documented as a scribe. Any additional findings or plans will be noted.
--- NOTE | 2024-04-04 13:29 | P.PN ---
Subjective Progress Note Date: 04/03/24 Principal diagnosis: Reason for follow visit Klebsiella urinary tract infection Patient is a 88-year-old female with multiple comorbidities with initial admission to the hospital mental status changes did have a positive UA and urine positive for Klebsiella prompted this consultation. On today's evaluation that is 04/03/2024,the patient remains to be afebrile, patient is on room air not requiring supplemental oxygen patient seen to be slightly more awake and alert per the daughter at the bedside still not able to provide any history no vomiting diarrhea has been reported. Patient creatinine 0.4 liver enzymes are normal Objective - Vital Signs Vital signs: Vital Signs Temp 97.1 F L 04/03/24 08:00 Pulse 62 04/03/24 08:00 Resp 17 04/03/24 08:00 BP 109/70 04/03/24 08:00 Pulse Ox 91 L 04/03/24 08:00 FiO2 Intake & Output 04/02/24 04/03/24 04/03/24 18:59 06:59 18:59 Output Total 425 200 Balance -425 -200 Output: Urine 425 200 Other: Voiding Method Diaper Indwelling Catheter - Exam GENERAL DESCRIPTION: An elderly female lying in bed in no distress RESPIRATORY SYSTEM: Unlabored breathing , decreased breath sounds at bases HEART: S1 S2 regular rate and rhythm , ABDOMEN: Soft , no tenderness EXTREMITIES: No edema feet - Labs CBC & Chem 7: 04/04/24 04:15 Labs: Abnormal Lab Results - Last 24 Hours (Table) 04/02/24 04/02/24 04/03/24 Range/Units 18:43 23:56 05:22 Creatinine 0.4 L (0.6-1.5) mg/dL BUN/Creatinine Ratio 61.25 H (12.00-20.00) Ratio POC Glucose (mg/dL) 111 H 121 H (70-110) mg/dL Calcium 8.5 L (8.7-10.3) mg/dL Total Protein 5.2 L (6.2-8.2) g/dL Albumin 2.8 L (3.8-4.9) g/dL Albumin/Globulin Ratio 1.17 L (1.60-3.17) Ratio 04/03/24 Range/Units 06:07 Creatinine (0.6-1.5) mg/dL BUN/Creatinine Ratio (12.00-20.00) Ratio POC Glucose (mg/dL) 123 H (70-110) mg/dL Calcium (8.7-10.3) mg/dL Total Protein (6.2-8.2) g/dL Albumin (3.8-4.9) g/dL Albumin/Globulin Ratio (1.60-3.17) Ratio Assessment and Plan (1) Acute pyelonephritis Current Visit: No Status: Acute Code(s): N10 - ACUTE PYELONEPHRITIS SNOMED Code(s): 20151712 Plan: 1patient presented hospital mental status changes weakness which is multifactorial with a component of UTI urine was finalized with Klebsiella 2-patient has received adequate IV Rocephin which was discontinued as of and is currently being monitored closely off antibiotic therapy daughter at the bedside questions were answered Dictation was produced using [employer] dictation software. please excuse any gramm atical, word or spelling errors. Time with Patient: Less than 30
--- NOTE | 2024-04-04 13:30 | P.PN ---
Subjective Progress Note Date: 04/04/24 Principal diagnosis: Reason for follow visit Klebsiella urinary tract infection Patient is a 88-year-old female with multiple comorbidities with initial admission to the hospital mental status changes did have a positive UA and urine positive for Klebsiella prompted this consultation. On today's evaluation that is 04/04/2024, the patient continues to be afebrile, the patient is on room air and breathing comfortably, the Pt remains to be pleasantly confused and unable provide reliable history no vomiting or diarrhea has been reported. Patient did have a creatinine 0.41 sodium is 133 rest electrolytes are normal no CBC was done today Objective - Vital Signs Vital signs: Vital Signs Temp 97.6 F 04/04/24 07:09 Pulse 92 04/04/24 08:00 Resp 16 04/04/24 08:00 BP 110/52 04/04/24 07:09 Pulse Ox 100 04/04/24 07:09 FiO2 Intake & Output 04/03/24 04/04/24 04/04/24 18:59 06:59 18:59 Intake Total 1011 Output Total 1475 Balance 1011 -1475 Weight 55.5 kg 55.5 kg Intake: Intake, IV Titration 1011 Amount Mvi, Adult No.4 with Vit 1011 K 10 ml Trace (Conc-1Ml/ Dose) 1 ml In Amino Acid 5%-D15w+Lytes*E* 1,000 ml @ 70 mls/hr IV .BY DURATION [facility] Rx#: [id number] Output: Urine 1475 Other: Voiding Method Indwelling Catheter Indwelling Catheter Indwelling Catheter # Voids 3 # Bowel Movements 2 - Exam GENERAL DESCRIPTION: An elderly female lying in bed in no distress RESPIRATORY SYSTEM: Unlabored breathing , decreased breath sounds at bases HEART: S1 S2 regular rate and rhythm , ABDOMEN: Soft , no tenderness EXTREMITIES: No edema feet - Labs CBC & Chem 7: 04/04/24 04:15 Labs: Abnormal Lab Results - Last 24 Hours (Table) 04/04/24 04/04/24 04/04/24 Range/Units 00:06 04:15 05:27 Sodium 133 L (137-145) mmol/L BUN 27 H (7-17) mg/dL Creatinine 0.41 L (0.52-1.04) mg/dL Glucose 105 H (74-99) mg/dL POC Glucose (mg/dL) 120 H 111 H (70-110) mg/dL 04/04/24 Range/Units 11:38 Sodium (137-145) mmol/L BUN (7-17) mg/dL Creatinine (0.52-1.04) mg/dL Glucose (74-99) mg/dL POC Glucose (mg/dL) 121 H (70-110) mg/dL Assessment and Plan (1) Acute pyelonephritis Current Visit: No Status: Acute Code(s): N10 - ACUTE PYELONEPHRITIS SNOMED Code(s): 74644040 Plan: 1patient presented hospital mental status changes weakness which is multifactorial with a component of UTI urine was finalized with Klebsiella 2-patient has received adequate antibiotic therapy for Klebsiella urinary tract infection seem to be doing well off antibiotics at this point and will monitor closely off antibiotics Dictation was produced using [employer] dictation software. please excuse any grammatical, word or spelling errors. Time with Patient: Less than 30
[2024-04-04 16:37] LABS: Glucose,Whole Blood 84 mg/dL (70-110)
[2024-04-04] MEDS: FAT EMULSION 20% 250 ML in EMPTY BAG 1 BAG IV SCH (19:59)
[2024-04-04] MEDS: FAT EMULSION 20% 500 ML in EMPTY BAG 1 BAG IV SCH (20:36)
[2024-04-05 00:29] LABS: Glucose,Whole Blood 114 mg/dL (70-110)
[2024-04-05 05:58] LABS: Glucose,Whole Blood 90 mg/dL (70-110)
[2024-04-05 09:10] LABS: African American GFR (CKD) >90 (>60 ml/min/1.73 sqM); Anion Gap 2 mmol/L; Blood Urea Nitrogen 26 mg/dL (7-17); Calcium 8.7 mg/dL (8.4-10.2); Carbon Dioxide 25 mmol/L (22-30); Chloride 105 mmol/L (98-107); Glucose 95 mg/dL (74-99); Non-African American GFR(CKD) 89 (>60 ml/min/1.73 sqM); Phosphorus 3.3 mg/dL (2.5-4.5); Sodium 132 mmol/L (137-145)
[2024-04-05 09:17] LABS: Potassium 4.9 mmol/L (3.5-5.1)
[2024-04-05 11:59] LABS: Glucose,Whole Blood 84 mg/dL (70-110)
--- NOTE | 2024-04-05 12:33 | P.PN ---
Subjective Progress Note Date: 04/05/24 Principal diagnosis: Reason for follow visit Klebsiella urinary tract infection Patient is a 88-year-old female with multiple comorbidities with initial admission to the hospital mental status changes did have a positive UA and urine positive for Klebsiella prompted this consultation. On today's evaluation that is 04/05/2024, Patient is afebrile patient is currently on room air and is breathing comfortably patient is awake but nonverbal and did not answer any question no vomiting or diarrhea was reported by the nursing staff present at the bedside. Patient did have a creatinine 0.45 with CBC was done today Objective - Vital Signs Vital signs: Vital Signs Temp 97.7 F 04/05/24 07:55 Pulse 76 04/05/24 07:55 Resp 17 04/05/24 07:55 BP 96/58 04/05/24 07:55 Pulse Ox 99 04/05/24 07:55 FiO2 Intake & Output 04/04/24 04/05/24 04/05/24 18:59 06:59 18:59 Intake Total 1011 Output Total 700 700 Balance 311 -700 Weight 55.5 kg 56.5 kg Intake: Intake, IV Titration 1011 Amount Mvi, Adult No.4 with Vit 1011 K 10 ml Trace (Conc-1Ml/ Dose) 1 ml In Amino Acid 5%-D15w+Lytes*E* 1,000 ml @ 70 mls/hr IV .BY DURATION [facility] Rx#: [id number] Output: Urine 700 700 Other: Voiding Method Indwelling Catheter Indwelling Catheter - Exam GENERAL DESCRIPTION: An elderly female lying in bed in no distress RESPIRATORY SYSTEM: Unlabored breathing , decreased breath sounds at bases HEART: S1 S2 regular rate and rhythm , ABDOMEN: Soft , no tenderness EXTREMITIES: No edema feet - Labs CBC & Chem 7: 04/05/24 08:30 Labs: Abnormal Lab Results - Last 24 Hours (Table) 04/04/24 04/05/24 04/05/24 Range/Units 11:38 00:26 08:30 Sodium 132 L (137-145) mmol/L BUN 26 H (7-17) mg/dL Creatinine 0.45 L (0.52-1.04) mg/dL POC Glucose (mg/dL) 121 H 114 H (70-110) mg/dL Assessment and Plan (1) Acute pyelonephritis Current Visit: No Status: Acute Code(s): N10 - ACUTE PYELONEPHRITIS SNOMED Code(s): 95600476 Plan: 1patient presented hospital mental status changes weakness which is multifactorial with a component of UTI urine was finalized with Klebsiella 2-patient has received adequate antibiotic therapy for Klebsiella urinary tract infection, patient is currently waiting for possible PEG tube placement versus hospice General Surgery has been consulted Dictation was produced using [employer] dictation software. please excuse any grammatical, word or spelling errors. Time with Patient: Less than 30
--- NOTE | 2024-04-05 15:19 | P.PN ---
Subjective Progress Note Date: 04/05/24 This is an 88-year-old female with advanced dementia, failure to thrive, admitted with acute pyelonephritis, cultures finalized with Klebsiella, completed IV antibiotics of IV ceftriaxone as per infectious disease. Renal function stable. Currently continues on TPN, recent LFTs within normal limits. Afebrile. Maintaining O2 sats in the low 90s on room air. Patient is nonverbal, not following commands, not attempting to answer questions. 04/05/2024 continues on IV TPN. Vital signs stable. Maintaining O2 sats in the 90s on room air. Opens eyes occasionally, nonverbal. Asked patient if she was hungry and patient nodded her head no. Objective - Vital Signs Vital signs: Vital Signs Temp 97.7 F 04/05/24 07:55 Pulse 76 04/05/24 07:55 Resp 17 04/05/24 07:55 BP 96/58 04/05/24 07:55 Pulse Ox 99 04/05/24 07:55 FiO2 Intake & Output 04/04/24 04/05/24 04/05/24 18:59 06:59 18:59 Intake Total 1011 Output Total 700 700 Balance 311 -700 Weight 55.5 kg 56.5 kg Intake: Intake, IV Titration 1011 Amount Mvi, Adult No.4 with Vit 1011 K 10 ml Trace (Conc-1Ml/ Dose) 1 ml In Amino Acid 5%-D15w+Lytes*E* 1,000 ml @ 70 mls/hr IV .BY DURATION [facility] Rx#: [id number] Output: Urine 700 700 Other: Voiding Method Indwelling Catheter Indwelling Catheter Indwelling Catheter - Exam PHYSICAL EXAM: VITAL SIGNS: [As above] GENERAL: Thin,elderly female sitting up in bed, fatigued, occasionally opens eyes spontaneously, nonverbal HEENT: Conjunctivae normal. No scleral icterus NECK: Supple CARDIOVASCULAR: S1, S2 regular. No murmur RESPIRATION: Unlabored, equal air entry, bilateral bases diminished. ABDOMEN: Soft, nondistended, nontender . No guarding. Positive bowel sounds. LEGS: No edema. no swelling NERVOUS SYSTEM: Limited-advanced dementia. Skin: Warm and dry, no rash noted - Labs CBC & Chem 7: 04/05/24 08:30 Labs: Abnormal Lab Results - Last 24 Hours (Table) 04/05/24 04/05/24 Range/Units 00:26 08:30 Sodium 132 L (137-145) mmol/L BUN 26 H (7-17) mg/dL Creatinine 0.45 L (0.52-1.04) mg/dL POC Glucose (mg/dL) 114 H (70-110) mg/dL Assessment and Plan Assessment: Acute pyelonephritis, culture finalized with Klebsiella, completed antibiotic therapy as per infectious disease Acute on chronic toxic, metabolic encephalopathy, multifactorial, heightened by the above, in a patient with advanced dementia Moderate protein calorie malnutrition, BMI 21, albumin 2.8, currently on TPN Chronic atrial fibrillation Gastroesophageal reflux disease Hypertension Plan: Continue on current medication resume ,monitoring and symptomatic treatment. No family at bedside this morning during rounding. PCP, Dr. Rodriguez attempted to reach daughter yesterday by phone, unsuccessfully. Discussed with case management who will attempt to reach daughter/power of district attorney Carrie Aragon, to facilitate a call with Dr. Rodriguez to facilitate DC planning. Apparently yesterday [facility] juvenile court liaison met with daughter/POA stating she wishes to pursue hospice after placement of a PEG tube. Maintain supportive care. Potential consult to general surgery Dr. Mcclain. The impression and plan of care has been dictated as directed. : I performed a history and examination of this patient, discussed the same with the dictator. I agree with the dictator's note ,documented as a scribe. Any additional findings or plans will be noted.
--- NOTE | 2024-04-05 16:00 | CDI ---
Documentation Clarification Form Date: 04/05/2024 03:24:22 PM From: Milena Rodriguez RN CCDS Phone: [phone] Admit Date: 03/21/2024 12:00:00 AM Patient Name: Dinorah Aragon Visit Number: [id number] Discharge Date: ATTENTION: The Clinical Documentation Specialists (CDI) and [facility] Coding Staff appreciate your assistance in clarifying documentation. Please respond to the clarification below the line at the bottom and electronically sign. The CDI & [facility] Coding staff will review the response and follow-up if needed. Please note: Queries are made part of the Legal Health Record. If you have any questions, please contact the author of this message via ITS. Kaitlin Hansen Conflicting documentation has been found in the medical record. As attending physician, please provide clarification. Malnutrition, calorie protein Severe Malnutrition secondary to advanced dementia UTI, and right leg cellulitis. 04/02 medicine progress note Moderate protein calorie malnutrition, BMI 21. 04/04 Medicine progress note. History/Risk Factors: 88 year old female presents to the ED with failure to thrive, acute pyelonephritis cultures finalized with Klebsiella. Medial history: Advanced dementia, HTN, GERD, chronic atrial fibrillation and CKD. 04/02 Medicine note. Clinical Indicators: Dietitian consult, 04/04: Poor nutrition intake 0-25% consumed. NDD1 Pureed diet refusing most meals with TPN meeting 100$ of EEN. Nutritional concerns: Difficulty swallowing, Nutrition related Vitamin D, Medications Stool Softener. Weight 55.5kg built in scale. Hgt 5ft 4in BMI 20.9, underweight. Estimated protein needs: 1.0 1.25; Estimated Protein 55-68 grams/day. Estimated fluid needs 1ml/Kcal Estimated fluids needs 1347mls/day> Estimated [employer] needs 1347, KCAL comment MSJ x 1.4 AF Inadequate oral intake related to failure to thrive. Evidenced by <25% of EEN. Patient is maintained on TPN to meet 100% of EEN. Goal to meet 75% of estimated nutritional needs. Meals and Snacks: Texture modified diet, Pureed diet. Parenteral per Dr Sinclair Clinimix 5/15 @ 71ml/hr with 250ml lipids 2x weekly. Treatment: TPN Amino Ac/Electrol/Dextrose/Calcium Clinimix E 5% - D 15% Solution, Fat Emulsion Intravenous 250ml IV solution, Parenteral Vitamin Supplement 10ml/Zinc/Copper/Manganese/Selenium 1ml in Amino Ac/Electrol/Dexrose/Calcium. Vit D3 po, Daily weight, Blood glucose monitoring, Dysphagia level 1: Pureed diet, Aspiration precautions. Dietitian consult above. Please clarify which diagnosis is most appropriate: [ ] Severe protein calorie malnutrition [ x ] Moderate protein calorie malnutrition [ ] Other (please specify) [ ] Unable to determine In responding to this query, please exercise your independent professional judgment. The [facility] Coding Staff and Clinical Documentation Specialists appreciate your assistance in clarifying documentation, maintaining compliance with coding guidelines, accurately documenting patients condition and capturing severity of illness. The fact that a question is asked does not imply that any particular answer is desired or expected. Communication forms are a method of clarifying documentation and are made part of the Legal Health Record. Thank you in advance for your clarification. Last Reviewed February 2023 Reference: Using the ASPEN Guidelines, Undernutrition (Malnutrition) is characterized by at least two of the following six findings. The severity can be determined based on the criteria listed below. Malnutrition Characteristics for Moderate and Severe Malnutrition Type of Malnutrition Acute Illness or Injury Chronic Illness Degree of Malnutrition Non-severe (moderate) Malnutrition Severe Malnutrition Non-severe (moderate) Malnutrition Severe Malnutrition Energy Intake <75% for >7 days = 50% for = 5 days <75% for = 1 month =75% for = 1 month Weight Loss 1-2% in one week, 5% in 1 month, 7.5% in 3 months 2% in one week, >5% in 1 month, >7.5% in 3 months 5% in one month, 7.5% in 3 months, 10% in 6 months, 20% in 1 year >5% in one month, >7.5% in 3 months, >10% in 6 months, >20% in 1 year Body Fat Wasting Mild Moderate Mild Severe Muscle Wasting Mild Moderate Mild Severe Presence of Edema Mild Moderate to Severe Mild Severe Waiter/Waitress Dining Car Strength Not applicable Measurably Reduced Not applicable Measurably Reduced Source: Jozef HOLT, Yvette P, Kevin G, et al. Consensus statement: Academy of Nutrition and Dietetics and [place] Society for Parenteral and Enteral Nutrition: characteristics recommended for the identification and documentation of adult malnutrition (undernutrition).KELLEY Casas Parenter Enteral Nutr. 2012;36(3):275-283. (Template Last Revised: October 2020) MTDD
--- NOTE | 2024-04-05 16:26 | P.PN ---
Subjective Progress Note Date: 04/05/24 I am seeing the patient for the first time during this admission. Please refer to Dr. Benjamin's notes for further details. Patient has underlying history of advanced dementia. She has altered mental status and it appears toxic-metabolic encephalopathy. she is unable to provide history. She is trying pull on her catheter. Objective - Vital Signs Vital signs: Vital Signs Temp 97.7 F 04/05/24 07:55 Pulse 76 04/05/24 07:55 Resp 17 04/05/24 07:55 BP 96/58 04/05/24 07:55 Pulse Ox 99 04/05/24 07:55 FiO2 Intake & Output 04/04/24 04/05/24 04/05/24 18:59 06:59 18:59 Intake Total 1011 Output Total 700 700 Balance 311 -700 Weight 55.5 kg 56.5 kg Intake: Intake, IV Titration 1011 Amount Mvi, Adult No.4 with Vit 1011 K 10 ml Trace (Conc-1Ml/ Dose) 1 ml In Amino Acid 5%-D15w+Lytes*E* 1,000 ml @ 70 mls/hr IV .BY DURATION [facility] Rx#: [id number] Output: Urine 700 700 Other: Voiding Method Indwelling Catheter Indwelling Catheter Indwelling Catheter - Exam General: Lying in bed and does not appear in acute distress. Neuro: Very limited. She is awake, oriented to self and mumbles stuff. She is not following commands. - Labs CBC & Chem 7: 04/05/24 08:30 Labs: Abnormal Lab Results - Last 24 Hours (Table) 04/05/24 04/05/24 Range/Units 00:26 08:30 Sodium 132 L (137-145) mmol/L BUN 26 H (7-17) mg/dL Creatinine 0.45 L (0.52-1.04) mg/dL POC Glucose (mg/dL) 114 H (70-110) mg/dL Assessment and Plan Assessment: * Altered mental status due to toxic metabolic encephalopathy * Advanced dementia with behavioral disturbance * UTI with sepsis, improved * Renal insufficiency, resolved * Chronic atrial fibrillation, noncompliance with anticoagulation. Plan: * ID following. * Continue Namenda * Patient starting TPN. * Family has not made decision about feeding tube. * EEG: Limited because of diffuse myogenic artifact. But with limitation the background is severely encephalopathic. There is no focal slowing, epileptiform discharges or seizure on the EEG. Will follow-up with patient sporadically. Time with Patient: Less than 30
[2024-04-05 16:43] LABS: Glucose,Whole Blood 103 mg/dL (70-110)
[2024-04-06 05:28] LABS: Glucose,Whole Blood 121 mg/dL (70-110)
[2024-04-06 07:59] LABS: African American GFR (CKD) >90 (>60 ml/min/1.73 sqM); Anion Gap 1 mmol/L; Blood Urea Nitrogen 25 mg/dL (7-17); Calcium 8.8 mg/dL (8.4-10.2); Carbon Dioxide 26 mmol/L (22-30); Chloride 107 mmol/L (98-107); Glucose 110 mg/dL (74-99); Magnesium 1.9 mg/dL (1.6-2.3); Non-African American GFR(CKD) >90 (>60 ml/min/1.73 sqM); Phosphorus 3.7 mg/dL (2.5-4.5); Potassium 4.2 mmol/L (3.5-5.1); Sodium 134 mmol/L (137-145)
[2024-04-06 08:45] LABS: Basophils % (A) 1 %; Eosinophils # (A) 0.2 k/uL (0-0.7); Eosinophils % (A) 5 %; HGB 10.9 gm/dL (11.4-16.0); Hypochromasia Moderate; Lymphocytes # (A) 0.6 k/uL (1.0-4.8); Lymphocytes % (A) 19 %; MCH 30.8 pg (25.0-35.0); MCHC 31.2 g/dL (31.0-37.0); MCV 98.7 fL (80.0-100.0); Mean Platelet Volume 7.4; Monocytes # (A) 0.2 k/uL (0-1.0); Monocytes % (A) 7 %; Neutrophils # (A) 2.1 k/uL (1.3-7.7); Neutrophils % (A) 67 %; Platelet Count 248 k/uL (150-450); RBC 3.54 m/uL (3.80-5.40); WBC 3.2 k/uL (3.8-10.6)
[2024-04-06 08:55] LABS: INR 1.1 (<1.2); Prothrombin Time 12.1 sec (10.0-12.5)
--- NOTE | 2024-04-06 09:35 | P.GSCN ---
History of Present Illness Consult date: 04/06/24 Reason for Consult: feeding tube History of present illness: patient 88-year-old male with history of dementia and poor nutritional intake. The patient has been on TPN for several days in discussion with the family regarding enterofeeding. Review of Systems - Constitutional Constitutional Comment(s): unable to assess this patient is nonverbal with me Past Medical History Past Medical History: Atrial Fibrillation, Eye Disorder, GERD/Reflux, Hypertension Additional Past Medical History / Comment(s): ANDREW CATARACTS REMOVED.HIATAL HERNIA, INCONT OF URINE WEARS A PAD,ARTHRITIS,VARICOSE VEINS History of Any Multi-Drug Resistant Organisms: None Reported Past Surgical History: Adenoidectomy, Cholecystectomy, Hysterectomy, Tonsillectomy Additional Past Surgical History / Comment(s): EXC ANDREW CATARACTS. PARTIAL HYST- STILL HAS 1 OVARY.EGD,cysto with stent Past Anesthesia/Blood Transfusion Reactions: No Reported Reaction Additional Past Anesthesia/Blood Transfusion Reaction / Comm: N/A Past Psychological History: No Psychological Hx Reported Smoking Status: Never smoker Past Alcohol Use History: None Reported Past Drug Use History: None Reported - Past Family History Father History Unknown: Yes Family Medical History: Cancer Additional Family Medical History / Comment(s): Colon Cancer. Mother Additional Family Medical History / Comment(s): Mother was in good health and at 93. Brother(s) Additional Family Medical History / Comment(s): Kidney removal. Daughter(s) Family Medical History: No Reported History Son(s) Family Medical History: Asthma, Sleep Apnea/CPAP/BIPAP Medications and Allergies Home Medications Medication Instructions Recorded Confirmed Type Acetaminophen Tab [Tylenol] 650 mg PO Q6HR PRN tab 02/21/24 Rx Aspirin 81 mg PO DAILY tab 02/21/24 Rx Famotidine [Pepcid] 20 mg PO DAILY #30 tablet 02/21/24 Rx polyethylene glycoL 3350 [Miralax] 17 gm PO DAILY packet 02/21/24 Rx Allergies Allergy/AdvReac Type Severity Reaction Status Date / Time Sulfa (Sulfonamide Allergy Unknown Verified 04/01/24 18:27 Antibiotics) Surgical - Exam Osteopathic Statement: *. No significant issues noted on an osteopathic structural exam other than those noted in the History and Physical/Consult. Vital Signs Temp Pulse Resp BP Pulse Ox 97.6 F 88 19 111/67 93 L 04/02/24 07:23 04/02/24 07:23 04/02/24 07:23 04/02/24 07:23 04/02/24 07:23 - General Gen. no acute distress pleasantly confused, cachectic-appearing HEENT atraumatic normocephalic eyes PERRLA oromucosa dry, temporal wasting Cardiovascular regular rate and rhythm Pulmonary nonlabored Abdomen cachectic. Surgical scarring appreciated nontender nondistended no guarding or rebound tenderness Results - Labs 04/06/24 08:33 04/06/24 04:45 Abnormal Lab Results - Last 24 Hours (Table) 04/06/24 04/06/24 04/06/24 Range/Units 04:45 05:27 08:33 WBC 3.2 L (3.8-10.6) k/uL RBC 3.54 L (3.80-5.40) m/uL Hgb 10.9 L (11.4-16.0) gm/dL Lymphocytes # 0.6 L (1.0-4.8) k/uL Sodium 134 L (137-145) mmol/L BUN 25 H (7-17) mg/dL Creatinine 0.43 L (0.52-1.04) mg/dL Glucose 110 H (74-99) mg/dL POC Glucose (mg/dL) 121 H (70-110) mg/dL Diabetes panel 04/06/24 Range/Units 04:45 Sodium 134 L (137-145) mmol/L Potassium 4.2 (3.5-5.1) mmol/L Chloride 107 (98-107) mmol/L Carbon Dioxide 26 (22-30) mmol/L BUN 25 H (7-17) mg/dL Creatinine 0.43 L (0.52-1.04) mg/dL Glucose 110 H (74-99) mg/dL Calcium 8.8 (8.4-10.2) mg/dL Calcium panel 04/06/24 Range/Units 04:45 Calcium 8.8 (8.4-10.2) mg/dL Phosphorus 3.7 (2.5-4.5) mg/dL Pituitary panel 04/06/24 Range/Units 04:45 Sodium 134 L (137-145) mmol/L Potassium 4.2 (3.5-5.1) mmol/L Chloride 107 (98-107) mmol/L Carbon Dioxide 26 (22-30) mmol/L BUN 25 H (7-17) mg/dL Creatinine 0.43 L (0.52-1.04) mg/dL Glucose 110 H (74-99) mg/dL Calcium 8.8 (8.4-10.2) mg/dL Adrenal panel 04/06/24 Range/Units 04:45 Sodium 134 L (137-145) mmol/L Potassium 4.2 (3.5-5.1) mmol/L Chloride 107 (98-107) mmol/L Carbon Dioxide 26 (22-30) mmol/L BUN 25 H (7-17) mg/dL Creatinine 0.43 L (0.52-1.04) mg/dL Glucose 110 H (74-99) mg/dL Calcium 8.8 (8.4-10.2) mg/dL Assessment and Plan Assessment: a 8-year-old female with malnutrition, failure to thrive We'll have a discussion with the family regarding prognosis with risks and benefits of PEG tube The family is agreeable we will schedule feeding tube for tomorrow 04/07/2024 Time with Patient: Less than 30
[2024-04-06 11:38] LABS: Glucose,Whole Blood 103 mg/dL (70-110)
--- NOTE | 2024-04-06 15:25 | P.PN ---
Subjective Progress Note Date: 04/06/24 Principal diagnosis: Reason for follow visit Klebsiella urinary tract infection Patient is a 88-year-old female with multiple comorbidities with initial admission to the hospital mental status changes did have a positive UA and urine positive for Klebsiella prompted this consultation. On today's evaluation that is 04/06/2024, patient has been afebrile, patient is breathing comfortably and is currently on room air, patient remains to be lethargic nonverbal no vomiting diarrhea or any other changes reported by the nursing staff at the bedside. Patient white count is 3.2 creatinine 0.43 Objective - Vital Signs Vital signs: Vital Signs Temp 97.9 F 04/06/24 06:55 Pulse 67 04/06/24 09:45 Resp 19 04/06/24 09:45 BP 98/61 04/06/24 06:55 Pulse Ox 94 L 04/06/24 06:55 FiO2 Intake & Output 04/05/24 04/06/24 04/06/24 18:59 06:59 18:59 Intake Total 1000 1011 Output Total 650 Balance 1000 361 Weight 54 kg Intake: Intake, IV Titration 1000 1011 Amount Amino Acid 5%-D15w+Lytes* 1000 E* 1,000 ml @ 70 mls/hr IV .BY DURATION [facility] Rx#: [id number] Mvi, Adult No.4 with Vit 1011 K 10 ml Trace (Conc-1Ml/ Dose) 1 ml In Amino Acid 5%-D15w+Lytes*E* 1,000 ml @ 70 mls/hr IV .BY DURATION [facility] [place] Rx#: [id number] Output: Urine 650 Other: Voiding Method Indwelling Catheter Indwelling Catheter Indwelling Catheter - Exam GENERAL DESCRIPTION: An elderly female lying in bed in no distress RESPIRATORY SYSTEM: Unlabored breathing , decreased breath sounds at bases HEART: S1 S2 regular rate and rhythm , ABDOMEN: Soft , no tenderness EXTREMITIES: No edema feet - Labs CBC & Chem 7: 04/06/24 08:33 04/06/24 04:45 Labs: Abnormal Lab Results - Last 24 Hours (Table) 04/06/24 04/06/24 04/06/24 Range/Units 04:45 05:27 08:33 WBC 3.2 L (3.8-10.6) k/uL RBC 3.54 L (3.80-5.40) m/uL Hgb 10.9 L (11.4-16.0) gm/dL Lymphocytes # 0.6 L (1.0-4.8) k/uL Sodium 134 L (137-145) mmol/L BUN 25 H (7-17) mg/dL Creatinine 0.43 L (0.52-1.04) mg/dL Glucose 110 H (74-99) mg/dL POC Glucose (mg/dL) 121 H (70-110) mg/dL Assessment and Plan (1) Acute pyelonephritis Current Visit: No Status: Acute Code(s): N10 - ACUTE PYELONEPHRITIS SNOMED Code(s): 78684833 Plan: 1patient presented hospital mental status changes weakness which is multifactorial with a component of UTI urine was finalized with Klebsiella 2-patient has received adequate antibiotic therapy for Klebsiella urinary tract infection, patient has been eval by general surgery planning for PEG tube placement 04/07/2024 Dictation was produced using [employer] dictation software. please excuse any grammatical, word or spelling errors. Time with Patient: Less than 30
[2024-04-06] MEDS: LORazepam 2 MG/ML INJ IV PRN (21:40)
[2024-04-07 00:19] LABS: Glucose,Whole Blood 120 mg/dL (70-110)
[2024-04-07 04:51] LABS: ALT 17 U/L (4-34); AST 25 U/L (14-36); African American GFR (CKD) >90 (>60 ml/min/1.73 sqM); Albumin 2.8 g/dL (3.5-5.0); Alkaline Phosphatase 75 U/L (38-126); Anion Gap 1 mmol/L; Blood Urea Nitrogen 27 mg/dL (7-17); Carbon Dioxide 25 mmol/L (22-30); Chloride 107 mmol/L (98-107); Globulin 2.8 g/dL; Glucose 124 mg/dL (74-99); Magnesium 1.9 mg/dL (1.6-2.3); Non-African American GFR(CKD) 87 (>60 ml/min/1.73 sqM); Phosphorus 3.4 mg/dL (2.5-4.5); Potassium 4.4 mmol/L (3.5-5.1); Sodium 133 mmol/L (137-145); Total Bilirubin 0.4 mg/dL (0.2-1.3); Total Protein 5.6 g/dL (6.3-8.2)
[2024-04-07 05:41] LABS: Glucose,Whole Blood 116 mg/dL (70-110)
--- NOTE | 2024-04-07 10:03 | P.DS ---
Providers Date of admission: 03/21/24 00:00 Expected date of discharge: 04/07/24 Attending physician: Karlo Rodriguez MD Consults: 04/01/24 18:28 Consult Physician Routine Consulting Provider: Jonathan Munoz Consult Reason/Comments: renal failure, increase magnesium Do you want consulting provider notified?: Already Contacted 04/01/24 18:37 Consult Physician Routine Consulting Provider: Magnus Benjamin Consult Reason/Comments: CVA Do you want consulting provider notified?: Already Contacted 04/02/24 13:20 Consult Physician Routine Consulting Provider: Nahomy Walker Consult Reason/Comments: infection Do you want consulting provider notified?: Already Contacted 04/05/24 14:53 Consult Physician Routine Consulting Provider: Alyx Mcclain Consult Reason/Comments: peg tube Do you want consulting provider notified?: Yes Primary care physician: Stated None Hospital Course: Final Diagnoses: Acute pyelonephritis, culture finalized with Klebsiella, completed antibiotic therapy as per infectious disease Acute on chronic toxic, metabolic encephalopathy, multifactorial, heightened by the above, in a patient with advanced dementia Moderate protein calorie malnutrition, BMI 21, albumin 2.8, currently on TPN Chronic atrial fibrillation Gastroesophageal reflux disease Hypertension Moderate protein calorie malnutrition, PEG tube placement pending as requested per daughter, prior to discharge home with hospice Hospital course:This is an 88-year-old female with advanced dementia, failure to thrive, admitted with acute pyelonephritis, cultures finalized with Klebsiella, completed IV antibiotics of IV ceftriaxone as per infectious disease. Renal function stable. Currently continues on TPN, recent LFTs within normal limits. Afebrile. Maintaining O2 sats in the low 90s on room air. Patient is nonverbal, not following commands, not attempting to answer questions. Continues on IV TPN. Vital signs stable. Maintaining O2 sats in the 90s on room air. Opens eyes occasionally, nonverbal. No family at bedside this morning during rounding. PCP, Dr. Rodriguez attempted to reach daughter by phone, unsuccessfully. Discussed with case management who w ill attempt to reach daughter/power of criminal defense attorney Carrie Aragon, to facilitate a call with Dr. Rodriguez to facilitate DC planning. Apparently yesterday [facility] account liaison hospice met with daughter/POA stating she wishes to pursue hospice after placement of a PEG tube. Maintain supportive care. Potential consult to general surgery Dr. Mcclain. General surgery consulted. Scheduled for PEG tube placement today. Patient will be discharged home today in a stable condition with guarded prognosis ,with hospice after PEG tube placement today pending DC clearance per general surgery. The impression and plan of care has been dictated as directed. : I performed a history and examination of this patient, discussed the same with the dictator. I agree with the dictator's note ,documented as a scribe. Any additional findings or plans will be noted. Plan - Discharge Summary New Discharge Prescriptions: New Diltiazem Cd [Cardizem CD] 120 mg PO DAILY #30 cap Metoprolol Tartrate [Lopressor] 25 mg PO BID #60 tab Memantine [Namenda] 5 mg PO BID #60 tab Continue Aspirin 81 mg PO DAILY tab Acetaminophen Tab [Tylenol] 650 mg PO Q6HR PRN tab PRN Reason: Mild Pain Or Fever > 100.5 polyethylene glycoL 3350 [Miralax] 17 gm PO DAILY packet Famotidine [Pepcid] 20 mg PO DAILY #30 tablet Discharge Medication List Acetaminophen Tab [Tylenol] 650 mg PO Q6HR PRN tab 02/21/24 [Rx] Aspirin 81 mg PO DAILY tab 02/21/24 [Rx] Famotidine [Pepcid] 20 mg PO DAILY #30 tablet 02/21/24 [Rx] polyethylene glycoL 3350 [Miralax] 17 gm PO DAILY packet 02/21/24 [Rx] Diltiazem Cd [Cardizem CD] 120 mg PO DAILY #30 cap 04/07/24 [Rx] Memantine [Namenda] 5 mg PO BID #60 tab 04/07/24 [Rx] Metoprolol Tartrate [Lopressor] 25 mg PO BID #60 tab 04/07/24 [Rx] Discharge Disposition: HOME WITH HOSPICE
[2024-04-07] MEDS ORDERED: PHENYLEPHRINE-0.9% NACL SYG 1,000 MCG/10 ML SYRINGE ONE (10:07)
[2024-04-07] MEDS ORDERED: PROPOFOL 10 MG/ML 20 ML VIAL IV ONE (10:07)
[2024-04-07] MEDS ORDERED: LIDOCAINE 1% INJ 10MG/ML (20 ML MDV) ONE (10:07)
[2024-04-07] MEDS: SODIUM CHLORIDE 0.9% 500 ML 500 ML IV ONE (10:12)
--- NOTE | 2024-04-07 10:12 | P.PN ---
Subjective Progress Note Date: 04/07/24 This is an 88-year-old female with advanced dementia, failure to thrive, admitted with acute pyelonephritis, cultures finalized with Klebsiella, completed IV antibiotics of IV ceftriaxone as per infectious disease. Renal function stable. Currently continues on TPN, recent LFTs within normal limits. Afebrile. Maintaining O2 sats in the low 90s on room air. Patient is nonverbal, not following commands, not attempting to answer questions. 04/05/2024 continues on IV TPN. Vital signs stable. Maintaining O2 sats in the 90s on room air. Opens eyes occasionally, nonverbal. Asked patient if she was hungry and patient nodded her head no. 04/06/2024 PCP unable to reach daughter by phone .Dr. Smalls, general surgery on consult for PEG tube placement as requested per daughter. Continues on IV TPN. Vital signs stable. Objective - Vital Signs Vital signs: Vital Signs Temp 97.9 F 04/06/24 06:55 Pulse 67 04/06/24 09:45 Resp 19 04/06/24 09:45 BP 98/61 04/06/24 06:55 Pulse Ox 94 L 04/06/24 06:55 FiO2 Intake & Output 04/05/24 04/06/24 04/06/24 18:59 06:59 18:59 Intake Total 1000 1011 Output Total 650 Balance 1000 361 Weight 54 kg Intake: Intake, IV Titration 1000 1011 Amount Amino Acid 5%-D15w+Lytes* 1000 E* 1,000 ml @ 70 mls/hr IV .BY DURATION [facility] Rx#: [id number] Mvi, Adult No.4 with Vit 1011 K 10 ml Trace (Conc-1Ml/ Dose) 1 ml In Amino Acid 5%-D15w+Lytes*E* 1,000 ml @ 70 mls/hr IV .BY DURATION [facility] Rx#: [id number] Output: Urine 650 Other: Voiding Method Indwelling Catheter Indwelling Catheter Indwelling Catheter - Exam PHYSICAL EXAM: VITAL SIGNS: [As above] GENERAL: Thin,elderly female sitting up in bed, fatigued, appears comfortable, opens eyes spontaneously, occasionally mumbling HEENT: Conjunctivae normal. No scleral icterus NECK: Supple CARDIOVASCULAR: S1, S2 regular. No murmur RESPIRATION: Unlabored, equal air entry, bilateral bases diminished. ABDOMEN: Soft, nondistended, nontender . No guarding. Positive bowel sounds. LEGS: No edema. no swelling NERVOUS SYSTEM: Limited-advanced dementia. Skin: Warm and dry, no rash noted - Labs CBC & Chem 7: 04/06/24 08:33 04/07/24 04:16 Labs: Abnormal Lab Results - Last 24 Hours (Table) 04/06/24 04/06/24 04/06/24 Range/Units 04:45 05:27 08:33 WBC 3.2 L (3.8-10.6) k/uL RBC 3.54 L (3.80-5.40) m/uL Hgb 10.9 L (11.4-16.0) gm/dL Lymphocytes # 0.6 L (1.0-4.8) k/uL Sodium 134 L (137-145) mmol/L BUN 25 H (7-17) mg/dL Creatinine 0.43 L (0.52-1.04) mg/dL Glucose 110 H (74-99) mg/dL POC Glucose (mg/dL) 121 H (70-110) mg/dL Assessment and Plan Assessment: Acute pyelonephritis, culture finalized with Klebsiella, completed antibiotic therapy as per infectious disease Acute on chronic toxic, metabolic encephalopathy, multifactorial, heightened by the above, in a patient with advanced dementia, failure to thrive. Moderate protein calorie malnutrition, BMI 21, albumin 2.8, currently on TPN Chronic atrial fibrillation Gastroesophageal reflux disease Hypertension Plan: Continue on current medication resume ,monitoring and symptomatic treatment. No family at bedside this morning during rounding. Potential PEG tube placement pending general surgery able to connect with family, and obtain consent. Discharge planning in progress for home with hospice after PEG tube placement. Prognosis poor. The impression and plan of care has been dictated as directed. : I performed a history and examination of this patient, discussed the same with the dictator. I agree with the dictator's note ,documented as a scribe. Any additional findings or plans will be noted.
[2024-04-07 11:42] LABS: Glucose,Whole Blood 108 mg/dL (70-110)
--- NOTE | 2024-04-07 12:09 | P.PCN ---
Date of Procedure: 04/07/24 Preoperative Diagnosis: Malnutrition Postoperative Diagnosis: Malnutrition, failure to thrive Procedure(s) Performed: EGD with PEG tube placement Anesthesia: MAC Surgeon: Alyx Mcclain Estimated Blood Loss (ml): 5 Pathology: none sent Condition: stable Disposition: floor Indications for Procedure: 88-year-old female with failure to thrive and malnutrition. Patient's family and discussion with possibility of hospice management. Patient's daughter is DPOA. Patient is currently on TPN and patient's power of research attorney is requesting PEG tube placement for nutrition as transition to hospice. She does understand risks of bleeding, risk of injury to surrounding abdominal structures and risk of bowel perforation. She would like to continue with plan for placement of PEG tube. All questions were answered prior to procedure. Operative Findings: Mild gastritis, bumper appears to be in appropriate position. Description of Procedure: Patient was brought to the endoscopy suite and placed in supine position and was given IV sedation by anesthesia. An EGD was performed. No obvious masses were noted in the esophagus, stomach or first portion of the duodenum. Mild to moderate gastritis was noted. The stomach was transilluminated and an optimal position for the PEG tube was identified using ballottement. The skin was infiltrated with local anesthetic and needle and sheath were inserted through the abdomen into the stomach under direct visualization. Needle was removed and the guidewire was inserted through the sheath and grasped from above with a snare. It was removed completely and the PEG tube was secured to the guidewire. The guidewire and PEG tube were then pulled through the mouth and esophagus and snug to the abdominal wall. There was no evidence of significant bleeding. Photos were taken. The bolster was placed on the PEG site. This was secured with nylon suture. The patient appeared to tolerate the procedure well and was transferred to recovery room in stable condition.
[2024-04-07 16:52] LABS: Glucose,Whole Blood 128 mg/dL (70-110)
--- NOTE | 2024-04-07 17:39 | P.PN ---
Subjective Progress Note Date: 04/07/24 It seems the patient had PEG tube placed today. Per the nurse, the family has decided to pursue with hospice. There is no further neurological work-up. Will sign off. Please reconsult if needed. Dr. Benjamin will resume neurology service tomorrow A.M. if needed. Objective - Vital Signs Vital signs: Vital Signs Temp 99.1 F 04/07/24 14:02 Pulse 99 04/07/24 14:02 Resp 16 04/07/24 14:02 BP 127/77 04/07/24 14:02 Pulse Ox 99 04/07/24 14:02 FiO2 Intake & Output 04/06/24 04/07/24 04/07/24 18:59 06:59 18:59 Intake Total 1000 1011 1148 Output Total 220 Balance 1000 1011 928 Weight 54 kg 55.5 kg Intake: IV 200 Intake, IV Titration 1000 1011 Amount Amino Acid 5%-D15w+Lytes* 1000 E* 1,000 ml @ 70 mls/hr IV .BY DURATION [facility] Rx#: [id number] Mvi, Adult No.4 with Vit 1011 K 10 ml Trace (Conc-1Ml/ Dose) 1 ml In Amino Acid 5%-D15w+Lytes*E* 1,000 ml @ 70 mls/hr IV .BY DURATION [facility] Rx#: [id number] Tube Feeding 948 Output: Urine 220 Other: Voiding Method Indwelling Catheter Indwelling Catheter Indwelling Catheter - Labs CBC & Chem 7: 04/06/24 08:33 04/07/24 04:16 Labs: Abnormal Lab Results - Last 24 Hours (Table) 04/07/24 04/07/24 04/07/24 Range/Units 00:18 04:16 05:33 Sodium 133 L (137-145) mmol/L BUN 27 H (7-17) mg/dL Creatinine 0.49 L (0.52-1.04) mg/dL Glucose 124 H (74-99) mg/dL POC Glucose (mg/dL) 120 H 116 H (70-110) mg/dL Total Protein 5.6 L (6.3-8.2) g/dL Albumin 2.8 L (3.5-5.0) g/dL 04/07/24 Range/Units 16:51 Sodium (137-145) mmol/L BUN (7-17) mg/dL Creatinine (0.52-1.04) mg/dL Glucose (74-99) mg/dL POC Glucose (mg/dL) 128 H (70-110) mg/dL Total Protein (6.3-8.2) g/dL Albumin (3.5-5.0) g/dL
--- NOTE | 2024-04-07 18:19 | P.PN ---
Progress Note - Text Progress Note Date: 04/07/24 Paged urgently due to bleeding from PEG tube insertion site. Pt's vitals stable. Daughter at bedside. Bumper site was tightened and pressure was held. Appears to be superficial bleeding. Surgicell introduces around catheter insertion site just below skin level. Evaluated for over 15 minutes with no evidence of continued bleeding. Case discussed with daughter. Pt did have 90mg Lovenox after procedure. Plan for Hgb/Hct for evaluation of blood loss. Hold all anticoagulation. Pressure dressing to site applied. Alyx Mcclain, DO
[2024-04-07 19:33] LABS: HCT 34.8 % (34.0-46.0); HGB 11.3 gm/dL (11.4-16.0); MCH 31.9 pg (25.0-35.0); MCHC 32.6 g/dL (31.0-37.0); MCV 98.1 fL (80.0-100.0); Mean Platelet Volume 8.3; Platelet Count 265 k/uL (150-450); RBC 3.54 m/uL (3.80-5.40); RDW 14.4 % (11.5-15.5); WBC 7.4 k/uL (3.8-10.6)
[2024-04-08 02:21] LABS: Glucose,Whole Blood 146 mg/dL (70-110)
[2024-04-08 06:00] LABS: Glucose,Whole Blood 119 mg/dL (70-110)
[2024-04-08 08:03] LABS: African American GFR (CKD) >90 (>60 ml/min/1.73 sqM); Anion Gap 2 mmol/L; Blood Urea Nitrogen 34 mg/dL (7-17); Carbon Dioxide 24 mmol/L (22-30); Chloride 106 mmol/L (98-107); Glucose 99 mg/dL (74-99); Potassium 4.9 mmol/L (3.5-5.1); Sodium 132 mmol/L (137-145)
[2024-04-08 08:04] LABS: ALT 18 U/L (4-34); AST 27 U/L (14-36); Albumin 2.7 g/dL (3.5-5.0); Albumin/Globulin Ratio 0.9; Alkaline Phosphatase 85 U/L (38-126); Globulin 2.9 g/dL; Non-African American GFR(CKD) 86 (>60 ml/min/1.73 sqM); Phosphorus 3.6 mg/dL (2.5-4.5); Total Bilirubin 0.6 mg/dL (0.2-1.3); Total Protein 5.6 g/dL (6.3-8.2)
--- NOTE | 2024-04-08 10:09 | P.PN ---
Subjective Progress Note Date: 04/08/24 Patient seen and examined at bedside. No acute events overnight after bleeding episode yesterday. No evidence of any further bleeding. Repeat hemoglobin after bleeding episode was 11.3. Objective - Vital Signs Vital signs: Vital Signs Temp 99.5 F 04/08/24 02:00 Pulse 127 H 04/08/24 07:00 Resp 19 04/08/24 07:00 BP 133/68 04/08/24 07:00 Pulse Ox 99 04/08/24 07:00 FiO2 Intake & Output 04/07/24 04/08/24 04/08/24 18:59 06:59 18:59 Intake Total 1148 Output Total 220 300 Balance 928 -300 Weight 55.5 kg 53.5 kg Intake: IV 200 Tube Feeding 948 Output: Urine 220 300 Other: Voiding Method Indwelling Catheter Indwelling Catheter Indwelling Catheter - Constitutional Constitutional Comment(s): Cachectic - Gastrointestinal Gastrointestinal Comment(s): PEG tube site with no active bleeding, appears to be in place. - Labs CBC & Chem 7: 04/07/24 18:36 04/08/24 07:13 Labs: Abnormal Lab Results - Last 24 Hours (Table) 04/07/24 04/07/24 04/08/24 Range/Units 16:51 18:36 02:19 RBC 3.54 L (3.80-5.40) m/uL Hgb 11.3 L (11.4-16.0) gm/dL Sodium (137-145) mmol/L BUN (7-17) mg/dL Creatinine (0.52-1.04) mg/dL POC Glucose (mg/dL) 128 H 146 H (70-110) mg/dL Total Protein (6.3-8.2) g/dL Albumin (3.5-5.0) g/dL 04/08/24 04/08/24 Range/Units 05:59 07:13 RBC (3.80-5.40) m/uL Hgb (11.4-16.0) gm/dL Sodium 132 L (137-145) mmol/L BUN 34 H (7-17) mg/dL Creatinine 0.51 L (0.52-1.04) mg/dL POC Glucose (mg/dL) 119 H (70-110) mg/dL Total Protein 5.6 L (6.3-8.2) g/dL Albumin 2.7 L (3.5-5.0) g/dL Assessment and Plan Plan: 58-year-old female with failure to thrive status post PEG tube placement. Okay to begin using PEG tube at trickle feeds and advance as tolerated. Continue to monitor for any bleeding. Recommend holding Lovenox today and consider holding anticoagulation today.
--- NOTE | 2024-04-08 16:30 | P.PN ---
Subjective Progress Note Date: 04/08/24 Interval History: This is an 88-year-old female with advanced dementia, failure to thrive, admitted with acute pyelonephritis, cultures finalized with Klebsiella, completed IV antibiotics of IV ceftriaxone as per infectious disease. Renal function stable. Currently continues on TPN, recent LFTs within normal limits. Afebrile. Maintaining O2 sats in the low 90s on room air. Patient is nonverbal, not following commands, not attempting to answer questions. Continues on IV TPN. Vital signs stable. Maintaining O2 sats in the 90s on room air. Opens eyes occasionally, nonverbal. No family at bedside this morning during rounding. PCP, Dr. Rodriguez attempted to reach daughter by phone, unsuccessfully. Discussed with case management who will attempt to reach daughter/power of transactional attorney Carrie Aragon, to facilitate a call with Dr. Rodriguez to facilitate DC planning. Apparently yesterday [facility] hospice admitting clerk met with daughter/POA stating she wishes to pursue hospice after placement of a PEG tube. Maintain supportive care. Potential consult to general surgery Dr. Mcclain. General surgery consulted. Status post PEG tube placement 04/07, awaiting discharge to home with hospice, pending tube feed tolerance. Assessment and plan: Acute pyelonephritis, culture finalized with Klebsiella, completed antibiotic therapy as per infectious disease Acute on chronic toxic, metabolic encephalopathy, multifactorial, heightened by the above, in a patient with advanced dementia, failure to thrive. Moderate protein calorie malnutrition, BMI 21, albumin 2.8, currently on TPN Chronic atrial fibrillation Gastroesophageal reflux disease Hypertension Dementia Plan: Continue on current medication resume ,monitoring and symptomatic treatment. Status post back to placement by general surgery, bleeding from PEG tube site resolved. Hemoglobin stable. Prognosis poor. Daughter wanted to see tolerance of PEG tube feeding prior to discharge to home with hospice. Daughter at bedsidedaughter agreeable to continue current management for now, if condition deteriorated daughter planning for comfort care. PHYSICAL EXAMINATION: GENERAL: The patient is A&O x0. Cachectic. HEENT: EOMI, Sclerae anicteric, dry mucous membranes Neck: Supple, Non tender, No JVD PULMONARY: Equal breath souds B/L, No wheezing, No crackles. CARDIOVASCULAR: S1, S2 present. No murmurs, rubs, or gallops. ABDOMEN: Soft, nontender, nondistended, normoactive bowel sounds. No guarding or rebound tenderness. MUSCULOSKELETAL: No edema, No cyanosis. No clubbing. Normal ROM. Intact peripheral pulses. EXTREMITIES: No cyanosis, clubbing, or pedal edema. NEUROLOGICAL: Limited Skin: No Rash REVIEW OF SYSTEMS: Limited review of system due to dementia CONSTITUTIONAL: No fever or chills. CARDIOVASCULAR: No chest pain, palpitations or syncope. PULMONARY: No shortness of breath, no cough, sore throat. GASTROINTESTINAL: No nausea, vomiting, diarrhea, abdominal pain. : No Dysuria, urgency, frequency. Extremities: No edema. NEUROLOGICAL: No headaches, no weakness, or numbness Dictation was produced using [employer] dictation software. please excuse any grammatical, word or spelling errors. Objective - Vital Signs Vital signs: Vital Signs Temp 98.3 F 04/08/24 14:17 Pulse 115 H 04/08/24 14:17 Resp 20 04/08/24 14:17 BP 149/78 04/08/24 14:17 Pulse Ox 95 04/08/24 14:17 FiO2 Intake & Output 04/07/24 04/08/24 04/08/24 18:59 06:59 18:59 Intake Total 1148 Output Total 220 300 Balance 928 -300 Weight 55.5 kg 53.5 kg Intake: IV 200 Tube Feeding 948 Output: Urine 220 300 Other: Voiding Method Indwelling Catheter Indwelling Catheter Indwelling Catheter - Labs CBC & Chem 7: 04/07/24 18:36 04/08/24 07:13 Labs: Abnormal Lab Results - Last 24 Hours (Table) 04/07/24 04/07/24 04/08/24 Range/Units 16:51 18:36 02:19 RBC 3.54 L (3.80-5.40) m/uL Hgb 11.3 L (11.4-16.0) gm/dL Sodium (137-145) mmol/L BUN (7-17) mg/dL Creatinine (0.52-1.04) mg/dL POC Glucose (mg/dL) 128 H 146 H (70-110) mg/dL Total Protein (6.3-8.2) g/dL Albumin (3.5-5.0) g/dL 04/08/24 04/08/24 Range/Units 05:59 07:13 RBC (3.80-5.40) m/uL Hgb (11.4-16.0) gm/dL Sodium 132 L (137-145) mmol/L BUN 34 H (7-17) mg/dL Creatinine 0.51 L (0.52-1.04) mg/dL POC Glucose (mg/dL) 119 H (70-110) mg/dL Total Protein 5.6 L (6.3-8.2) g/dL Albumin 2.7 L (3.5-5.0) g/dL
[2024-04-08 17:11] LABS: Glucose,Whole Blood 94 mg/dL (70-110)
[2024-04-08 20:56] LABS: Glucose,Whole Blood 99 mg/dL (70-110)
[2024-04-09 00:17] LABS: Glucose,Whole Blood 97 mg/dL (70-110)
[2024-04-09 06:06] LABS: Glucose,Whole Blood 91 mg/dL (70-110)
--- NOTE | 2024-04-09 09:59 | P.PN ---
Subjective Progress Note Date: 04/09/24 Patient seen and examined at bedside. Sleeping. No further bleeding from PEG tube site. Objective - Vital Signs Vital signs: Vital Signs Temp 98.2 F 04/09/24 07:15 Pulse 104 H 04/09/24 07:15 Resp 20 04/09/24 07:15 BP 103/57 04/09/24 07:15 Pulse Ox 95 04/09/24 07:15 FiO2 Intake & Output 04/08/24 04/09/24 04/09/24 18:59 06:59 18:59 Output Total 800 Balance -800 Weight 52.5 kg Output: Urine 800 Other: Voiding Method Indwelling Catheter Indwelling Catheter Indwelling Catheter - Gastrointestinal Gastrointestinal Comment(s): Soft, nontender, no active bleeding from PEG tube site. - Labs CBC & Chem 7: 04/07/24 18:36 04/08/24 07:13 Assessment and Plan Plan: 88-year-old female with failure to thrive. PEG tube placed and functioning. Advance to goal per dietitian. Surgically stable for discharge to hospice.
[2024-04-09 11:39] LABS: Glucose,Whole Blood 98 mg/dL (70-110)
--- NOTE | 2024-04-09 15:42 | P.PN ---
Subjective Progress Note Date: 04/09/24 Interval History: This is an 88-year-old female with advanced dementia, failure to thrive, admitted with acute pyelonephritis, cultures finalized with Klebsiella, completed IV antibiotics of IV ceftriaxone as per infectious disease. Renal function stable. Currently continues on TPN, recent LFTs within normal limits. Afebrile. Maintaining O2 sats in the low 90s on room air. Patient is nonverbal, not following commands, not attempting to answer questions. Continues on IV TPN. Vital signs stable. Maintaining O2 sats in the 90s on room air. Opens eyes occasionally, nonverbal. No family at bedside this morning during rounding. PCP, Dr. Rodriguez attempted to reach daughter by phone, unsuccessfully. Discussed with case management who will attempt to reach daughter/power of business attorney Carrie Aragon, to facilitate a call with Dr. Rodriguez to facilitate DC planning. Apparently yesterday [facility] distance education faculty liaison met with daughter/POA stating she wishes to pursue hospice after placement of a PEG tube. Maintain supportive care. Potential consult to general surgery Dr. Mcclain. General surgery consulted. Status post PEG tube placement 04/07, awaiting discharge to home with hospice, pending tube feed tolerance. 04/09--patient was seen and examined today. Alert oriented x 0. Daughter at bedside. Tube feeding at 10 mL/h, discussed with RN to reach goal with tube feeding. Anticipate discharge to hospice home. Assessment and plan: Acute pyelonephritis, culture finalized with Klebsiella, completed antibiotic therapy as per infectious disease Acute on chronic toxic, metabolic encephalopathy, multifactorial, heightened by the above, in a patient with advanced dementia, failure to thrive. Moderate protein calorie malnutrition, BMI 21, albumin 2.8, currently on TPN Chronic atrial fibrillation Gastroesophageal reflux disease Hypertension Dementia Plan: Continue on current medication resume ,monitoring and symptomatic treatment. Status post back to placement by general surgery, bleeding from PEG tube site resolved. Hemoglobin stable. Prognosis poor. Daughter wanted to see tolerance of PEG tube feeding prior to discharge to home with hospice. Daughter at bedsidedaughter agreeable to continue current management for now, if condition deteriorated daughter planning for comfort care. PHYSICAL EXAMINATION: GENERAL: The patient is A&O x0. Cachectic. HEENT: EOMI, Sclerae anicteric, dry mucous membranes Neck: Supple, Non tender, No JVD PULMONARY: Equal breath souds B/L, No wheezing, No crackles. CARDIOVASCULAR: S1, S2 present. No murmurs, rubs, or gallops. ABDOMEN: Soft, nontender, nondistended, normoactive bowel sounds. No guarding or rebound tenderness. MUSCULOSKELETAL: No edema, No cyanosis. No clubbing. Normal ROM. Intact peripheral pulses. EXTREMITIES: No cyanosis, clubbing, or pedal edema. NEUROLOGICAL: Limited Skin: No Rash REVIEW OF SYSTEMS: Limited review of system due to dementia CONSTITUTIONAL: No fever or chills. CARDIOVASCULAR: No chest pain, palpitations or syncope. PULMONARY: No shortness of breath, no cough, sore throat. GASTROINTESTINAL: No nausea, vomiting, diarrhea, abdominal pain. : No Dysuria, urgency, frequency. Extremities: No edema. NEUROLOGICAL: No headaches, no weakness, or numbness Dictation was produced using [employer] dictation software. please excuse any grammatical, word or spelling errors. Objective - Vital Signs Vital signs: Vital Signs Temp 98.2 F 04/09/24 07:15 Pulse 104 H 04/09/24 07:15 Resp 20 04/09/24 07:15 BP 103/57 04/09/24 07:15 Pulse Ox 95 04/09/24 07:15 FiO2 Intake & Output 04/08/24 04/09/24 04/09/24 18:59 06:59 18:59 Output Total 800 Balance -800 Weight 52.5 kg Output: Urine 800 Other: Voiding Method Indwelling Catheter Indwelling Catheter Indwelling Catheter - Labs CBC & Chem 7: 04/07/24 18:36 04/08/24 07:13 Labs: Abnormal Lab Results - Last 24 Hours (Table) 04/09/24 Range/Units 06:51 Albumin 2.8 L (3.8-4.9) g/dL
[2024-04-09 16:49] LABS: Glucose,Whole Blood 107 mg/dL (70-110)
[2024-04-10 00:23] LABS: Glucose,Whole Blood 98 mg/dL (70-110)
[2024-04-10 06:33] LABS: Glucose,Whole Blood 114 mg/dL (70-110)
[2024-04-10 11:25] LABS: Glucose,Whole Blood 128 mg/dL (70-110)
--- NOTE | 2024-04-10 12:53 | P.PN ---
Subjective Patient seen and evaluated at bedside. Patient doing well, no overnight issues per nursing/daughter. Objective - Vital Signs Vital signs: Vital Signs Temp 98.4 F 04/10/24 07:14 Pulse 88 04/10/24 07:14 Resp 16 04/10/24 07:14 BP 139/81 04/10/24 07:14 Pulse Ox 93 L 04/10/24 07:14 FiO2 Intake & Output 04/09/24 04/10/24 04/10/24 18:59 06:59 18:59 Output Total 1600 Balance -1600 Output: Urine 1600 Uretheral (Amaya) 600 Other: Voiding Method Indwelling Catheter Indwelling Catheter Indwelling Catheter - Exam gen: nad cv: rrr pul: non labored breathing abd: soft, non tender, non distended, feeding tube appropriate with no bleeding observed. - Labs CBC & Chem 7: 04/07/24 18:36 04/08/24 07:13 Labs: Abnormal Lab Results - Last 24 Hours (Table) 04/09/24 04/10/24 04/10/24 Range/Units 06:51 06:32 11:24 POC Glucose (mg/dL) 114 H 128 H (70-110) mg/dL Albumin 2.8 L (3.8-4.9) g/dL Assessment and Plan Assessment: 58-year-old female with failure to thrive status post PEG tube placement. Tube feeds currently at 30, once at goal stable for discharge. Awaiting cbc, if hgb stable ok to restart anticogaulation. Will order an abdominal binder. Time with Patient: Less than 30
[2024-04-10 13:07] LABS: Basophils % (A) 1 %; Eosinophils # (A) 0.1 k/uL (0-0.7); Eosinophils % (A) 4 %; HCT 29.2 % (34.0-46.0); Hypochromasia Slight; Lymphocytes # (A) 0.8 k/uL (1.0-4.8); Lymphocytes % (A) 21 %; MCH 32.1 pg (25.0-35.0); MCHC 32.5 g/dL (31.0-37.0); Macrocytosis Slight; Monocytes # (A) 0.3 k/uL (0-1.0); Monocytes % (A) 8 %; Neutrophils # (A) 2.5 k/uL (1.3-7.7); Neutrophils % (A) 66 %; Platelet Count 272 k/uL (150-450); RBC 2.95 m/uL (3.80-5.40); RDW 14.6 % (11.5-15.5); WBC 3.8 k/uL (3.8-10.6)
[2024-04-10 13:14] LABS: HGB 9.5 gm/dL (11.4-16.0)
--- NOTE | 2024-04-10 16:55 | P.PN ---
Subjective Progress Note Date: 04/10/24 Interval History: This is an 88-year-old female with advanced dementia, failure to thrive, admitted with acute pyelonephritis, cultures finalized with Klebsiella, completed IV antibiotics of IV ceftriaxone as per infectious disease. Renal function stable. Currently continues on TPN, recent LFTs within normal limits. Afebrile. Maintaining O2 sats in the low 90s on room air. Patient is nonverbal, not following commands, not attempting to answer questions. Continues on IV TPN. Vital signs stable. Maintaining O2 sats in the 90s on room air. Opens eyes occasionally, nonverbal. No family at bedside this morning during rounding. PCP, Dr. Rodriguez attempted to reach daughter by phone, unsuccessfully. Discussed with case management who will attempt to reach daughter/power of corporate attorney Carrie Aragon, to facilitate a call with Dr. Rodriguez to facilitate DC planning. Apparently yesterday [facility] supervisor wet room met with daughter/POA stating she wishes to pursue hospice after placement of a PEG tube. Maintain supportive care. Potential consult to general surgery Dr. Mcclain. General surgery consulted. Status post PEG tube placement 04/07, awaiting discharge to home with hospice, pending tube feed tolerance. 04/09--patient was seen and examined today. Alert oriented x 0. Daughter at bedside. Tube feeding at 10 mL/h, discussed with RN to reach goal with tube feeding. Anticipate discharge to hospice home. 04/10--patient was seen and examined today. Alert oriented x 0. Tube feeding c urrently at 30 mL/h. Daughter at bedside. Anticipate discharge to hospice home. Assessment and plan: Acute pyelonephritis, culture finalized with Klebsiella, completed antibiotic therapy as per infectious disease Acute on chronic toxic, metabolic encephalopathy, multifactorial, heightened by the above, in a patient with advanced dementia, failure to thrive. Globin stable 9.5. Moderate protein calorie malnutrition, BMI 21, albumin 2.8, currently on TPN Chronic atrial fibrillation Gastroesophageal reflux disease Hypertension Dementia Plan: Continue on current medication resume ,monitoring and symptomatic treatment. Status post back to placement by general surgery, bleeding from PEG tube site resolved. Hemoglobin stable. Prognosis poor. Daughter wanted to see tolerance of PEG tube feeding prior to discharge to home with hospice. Daughter at bedsidedaughter agreeable to continue current management for now, if condition deteriorated daughter planning for comfort care. PHYSICAL EXAMINATION: GENERAL: The patient is A&O x0. Cachectic. HEENT: EOMI, Sclerae anicteric, dry mucous membranes Neck: Supple, Non tender, No JVD PULMONARY: Equal breath souds B/L, No wheezing, No crackles. CARDIOVASCULAR: S1, S2 present. No murmurs, rubs, or gallops. ABDOMEN: Soft, nontender, nondistended, normoactive bowel sounds. No guarding or rebound tenderness. MUSCULOSKELETAL: No edema, No cyanosis. No clubbing. Normal ROM. Intact peripheral pulses. EXTREMITIES: No cyanosis, clubbing, or pedal edema. NEUROLOGICAL: Limited Skin: No Rash REVIEW OF SYSTEMS: Limited review of system due to dementia Dictation was produced using [employer] dictation software. please excuse any grammatical, word or spelling errors. Objective - Vital Signs Vital signs: Vital Signs Temp 98.6 F 04/10/24 13:30 Pulse 83 04/10/24 13:30 Resp 16 04/10/24 13:30 BP 127/59 04/10/24 13:30 Pulse Ox 96 04/10/24 13:30 FiO2 Intake & Output 04/09/24 04/10/24 04/10/24 18:59 06:59 18:59 Output Total 1600 Balance -1600 Output: Urine 1600 Uretheral (Amaya) 600 Other: Voiding Method Indwelling Catheter Indwelling Catheter Indwelling Catheter - Labs CBC & Chem 7: 04/10/24 12:30 04/08/24 07:13 Labs: Abnormal Lab Results - Last 24 Hours (Table) 04/10/24 04/10/24 04/10/24 Range/Units 06:32 11:24 12:30 RBC 2.95 L (3.80-5.40) m/uL Hgb 9.5 L D (11.4-16.0) gm/dL Hct 29.2 L (34.0-46.0) % Lymphocytes # 0.8 L (1.0-4.8) k/uL POC Glucose (mg/dL) 114 H 128 H (70-110) mg/dL
[2024-04-10 17:01] LABS: Glucose,Whole Blood 104 mg/dL (70-110)
[2024-04-10 21:08] LABS: Basophils % (A) 1 %; Eosinophils # (A) 0.2 k/uL (0-0.7); Eosinophils % (A) 4 %; HCT 29.6 % (34.0-46.0); HGB 9.7 gm/dL (11.4-16.0); Hypochromasia Moderate; Lymphocytes # (A) 0.8 k/uL (1.0-4.8); Lymphocytes % (A) 19 %; MCH 32.2 pg (25.0-35.0); MCHC 32.8 g/dL (31.0-37.0); MCV 97.9 fL (80.0-100.0); Mean Platelet Volume 7.7; Monocytes # (A) 0.4 k/uL (0-1.0); Monocytes % (A) 8 %; Neutrophils % (A) 67 %; Platelet Count 300 k/uL (150-450); RBC 3.03 m/uL (3.80-5.40); RDW 14.2 % (11.5-15.5); WBC 4.4 k/uL (3.8-10.6)
[2024-04-11 01:17] LABS: Glucose,Whole Blood 89 mg/dL (70-110)
[2024-04-11 05:37] LABS: Glucose,Whole Blood 100 mg/dL (70-110)
[2024-04-11 11:56] LABS: Glucose,Whole Blood 84 mg/dL (70-110)
--- NOTE | 2024-04-11 12:56 | P.PN ---
Progress Note - Text Progress Note Date: 04/11/24 Patient tube feeds held overnight due to bleeding. Hgb stable this AM VSS General-NAD Abdomen-soft, NTND, PEG in place 58-year-old female with failure to thrive status post PEG tube placement. -Ok to restart TF and advance to goal -Monitor H/H/ Hemoglobin stable this AM Rickey Moreira DO [facility] [phone]
[2024-04-11 14:36] LABS: HCT 30.6 % (34.0-46.0); HGB 9.7 gm/dL (11.4-16.0); Hypochromasia Moderate; MCH 31.2 pg (25.0-35.0); MCHC 31.8 g/dL (31.0-37.0); Mean Platelet Volume 7.3; Platelet Count 320 k/uL (150-450); RBC 3.12 m/uL (3.80-5.40); RDW 14.2 % (11.5-15.5); WBC 4.2 k/uL (3.8-10.6)
[2024-04-11 16:04] VITALS: BMI 20.6
[2024-04-11 17:12] LABS: Glucose,Whole Blood 76 mg/dL (70-110)
[2024-04-12 05:54] LABS: Glucose,Whole Blood 137 mg/dL (70-110)
[2024-04-12 08:53] LABS: Basophils # (A) 0.05 X 10*3/uL (0.00-0.10); Basophils % (A) 0.9 %; Eosinophils # (A) 0.22 X 10*3/uL (0.04-0.35); Eosinophils % (A) 3.8 %; HGB 9.1 g/dL (12.0-15.0); Lymphocytes # (A) 0.92 X 10*3/uL (0.90-5.00); Lymphocytes % (A) 15.8 %; MCH 31.1 pg (27.0-32.0); MCHC 31.4 g/dL (32.0-37.0); Mean Platelet Volume 10.1 FL (9.5-12.2); Monocytes # (A) 0.59 X 10*3/uL (0.20-1.00); Monocytes % (A) 10.1 %; NRBC Per 100 WBC 0 X 10*3/uL (0.00-0.01); Neutrophils # (A) 4.02 X 10*3/uL (1.80-7.70); Neutrophils % (A) 69.1 %; Platelet Count 292 X 10*3/uL (140-440); RBC 2.93 X 10*6/uL (4.10-5.20); RDW 14.6 % (11.5-14.5); WBC 5.82 X 10*3/uL (4.50-10.00)
[2024-04-12 09:03] VITALS: BP 92/51; PULSE 64; RESP 17; TEMP 97.3
--- NOTE | 2024-04-17 16:22 | CT ---
Site ID [facility] Dinorah Sue ID [id number] Order # EXAMINATION TYPE: CT brain wo con CT DLP: 1197.4 mGycm, Automated exposure control for dose reduction was used. DATE OF EXAM: 03/23/2024 1:40 PM COMPARISON: THIS EXAM WAS READ DURING PACS DOWNTIME, NO PRIORS AVAILABLE.. CLINICAL INDICATION: no contrast. Confusion DLP 1197.4 TECHNIQUE: Brain: Axial CT images of the brain were obtained with coronal and sagittal reformats created and rev iewed. Contrast used: None. Oral contrast used: None. FINDINGS: Brain: Extra-axial spaces: No abnormal extra-axial fluid collections. Ventricular system: Dilatation in proportion to cerebral atrophy. Cerebral parenchyma: Cerebral atrophy. No acute intraparenchymal hemorrhage or mass effect. The gtz -white junction is well differentiated. Scattered hypoattenuating areas are seen within the white mat ter. Cerebellum: Unremarkable. Mass effect: No evidence of midline shift. Intracranial vasculature: Atherosclerotic calcifications of the intracranial vessels. Soft tissues: Normal. Calvarium/osseous structures: No depressed skull fracture. Paranasal sinuses and mastoid air cells: Mild scattered paranasal sinus disease. Visualized orbits: Bilateral aphakia IMPRESSION: 1. No acute intracranial process. 2. Nonspecific white matter changes, likely secondary to chronic small vessel ischemic disease.
--- NOTE | 2024-04-19 09:45 | XR ---
EXAMINATION TYPE: XR chest 1V portable DATE OF EXAM: 03/21/2024 COMPARISON: Chest radiographs from 02/17/2024 TECHNIQUE: XR chest 1V portable Portable AP radiograph of the chest. CLINICAL INDICATION:Female, 88 years old with history of AMS; FINDINGS: Patient is rotated which limits evaluation. Lungs/Pleura: There is no evidence of pleural effusion, focal consolidation, or pneumothorax. Pulmonary vascularity: Unremarkable. Heart/mediastinum: Cardiomediastinal silhouette is enlarged and stable. Musculoskeletal: No acute osseous pathology. IMPRESSION: No acute cardiopulmonary disease/process.
--- NOTE | 2024-04-21 10:13 | PN ---
Date of service is 03/23/2024 PROGRESS NOTE LOCATION: [facility]. REASON FOR FOLLOWUP: Urinary tract infection. INTERVAL HISTORY: The patient is afebrile. The patient remains to be lethargic and hardly has any response to the daughter at the bedside. She is breathing comfortably. No cough, vomiting, or any other change has been reported. PHYSICAL EXAMINATION: VITAL SIGNS: Blood pressure 105/72, pulse of 111, temperature of 98. GENERAL DESCRIPTION: This is an elderly female, lying in bed, in no distress. RESPIRATORY SYSTEM: Unlabored breathing and is clear to auscultation anteriorly. HEART: S1, S2. Regular rate and rhythm. ABDOMEN: Soft, no tenderness. LABORATORY DATA: Cultures are currently pending. DIAGNOSTIC IMPRESSION AND PLAN: The patient with mental status changes, weakness, lethargy, likely multifactorial, questionable transient ischemic attack and cerebrovascular accident need to be ruled out. The patient is broadly covered with antibiotic, to continue while waiting for the culture to finalize. Daughter at the bedside. Questions were answered. MMODL / IJN: [id number] / JUAN
--- NOTE | 2024-04-25 09:22 | CA ---
Transthoracic Echo Report Name: Dinorah Aragon Age: 88 Gender: O : 1935 Exam Date: 03/23/2024 10:51 Exam Location: [place] [facility] Ht (in): 60 Wt (lb): 120 Ordering Physician: Attending/Referring Phys: Avionics Engineer Carley Iniguez RDCS Procedure CPT: Indications: Cardiac Hx: Technical Quality: Good Contrast 1: Total Dose (mL): Contrast 2: Total Dose (mL): MEASUREMENTS (Male / Female) Normal Values 2D ECHO LV Diastolic Diameter PLAX 4.3 cm 4.2 - 5.9 / 3.9 - 5.3 cm LV Systolic Diameter PLAX 3.5 cm IVS Diastolic Thickness 1.1 cm 0.6 - 1.0 / 0.6 - 0.9 cm LVPW Diastolic Thickness 0.9 cm 0.6 - 1.0 / 0.6 - 0.9 cm LV Relative Wall Thickness 0.5 RV Internal Dim ED PLAX 2.6 cm LA Systolic Diameter LX 5.9 cm 3.0 - 4.0 / 2.7 - 3.8 cm LV Diastolic Volume MOD BP 45.7 cm??? 67 - 155 / 56 - 104 cm??? LV Systolic Volume MOD BP 27.4 cm??? 22 - 58 / 19 - 49 cm??? LV Ejection Fraction MOD BP 40.1 % >= 55 % LV Cardiac Index MOD BP 1031.3 cm???/min???m??? LV Diastolic Volume MOD 4C 48.2 cm??? LV Systolic Volume MOD 4C 26.1 cm??? LV Ejection Fraction MOD 4C 45.9 % LV Cardiac Index MOD 4C 1243.9 cm???/min???m??? LV Diastolic Length 4C 6.2 cm LV Systolic Length 4C 5.5 cm LV Diastolic Volume MOD 2C 39.9 cm??? LV Systolic Volume MOD 2C 33.0 cm??? LV Ejection Fraction MOD 2C 17.4 % LV Cardiac Index MOD 2C 390.9 cm???/min???m??? LV Diastolic Length 2C 5.7 cm LV Systolic Length 2C 5.6 cm M-MODE Aortic Root Diameter MM 2.9 cm LA Systolic Diameter MM 5.4 cm LA Ao Ratio MM 1.9 AV Cusp Separation MM 1.4 cm DOPPLER AV Peak Velocity 123.2 cm/s AV Peak Gradient 6.1 mmHg AV Mean Velocity 99.2 cm/s AV Mean Gradient 4.1 mmHg AV Velocity Time Integral 24.3 cm AI Peak Velocity 446.7 cm/s AI Peak Gradient 79.8 mmHg AI Pressure Half Time 758.0 ms LVOT Peak Velocity 67.2 cm/s LVOT Peak Gradient 1.8 mmHg LVOT Velocity Time Integral 12.2 cm MV Peak Velocity 120.5 cm/s MV Peak Gradient 5.8 mmHg MV Mean Velocity 64.2 cm/s MV Mean Gradient 2.1 mmHg MV Velocity Time Integral 29.6 cm Mitral E Point Velocity 122.7 cm/s Mitral A Point Velocity 1.8 cm/s Mitral E to A Ratio 67.7 MV Deceleration Time 236.4 ms MV E' Velocity 5.0 cm/s Mitral E to MV E' Ratio 24.6 TR Peak Velocity 240.4 cm/s TR Peak Gradient 23.1 mmHg Right Ventricular Systolic Press 38.2 mmHg FINDINGS Left Ventricle Left ventricular ejection fraction is estimated at 25-30%. Moderately decreased left ventricular ejection fraction. Reduced global left ventricular systolic function. Left ventricular cavity size normal. Left ventricular wall thickness normal. Right Ventricle Normal RV size and function. Mild pulmonary hypertension. Right Atrium Severe right atrial dilatation. Left Atrium Severely increased left atrial diameter. Mitral Valve Mitral valve thickened. Moderate mitral annular calcification. Mild mitral regurgitation. No mitral stenosis. Aortic Valve Trileaflet aortic valve. Diffuse thickening (sclerosis) of the aortic valve cusps without reduced excursion. Mild aortic regurgitation. Tricuspid Valve Structurally normal tricuspid valve. [id number] tricuspid regurgitation. No tricuspid stenosis. Pulmonic Valve Structurally normal pulmonic valve. Moderate pulmonic regurgitation. Pericardium No pericardial or pleural effusion. Aorta Normal size aortic root and proximal ascending aorta. CONCLUSIONS Left ventricular ejection fraction is estimated at 25-30%. Globally reduced LV systolic function Severe biatrial dilatation Thickened trileaflet aortic valve with no significant stenosis. Mild aortic regurgitation. Mild mitral regurgitation Mild pulmonary hypertension with RVSP of 38 mmHg Previewed by: Dr Gerson De La Garza (Electronically Signed) Final Date: 23 March 2024 12:56
--- NOTE | 2024-05-05 12:37 | PN ---
PROGRESS NOTE LOCATION: 380. REASON FOR FOLLOWUP: Urinary tract infection. INTERVAL HISTORY: The patient is afebrile per daughter at the bedside. The patient did wake up and ate half of Magic Cup. No clear history of any choking of the food. No vomiting, diarrhea, or any other changes reported. The patient did not answer any questions. Not responded to her name. PHYSICAL EXAMINATION: VITAL SIGNS: Blood pressure 117/73, pulse of 120, temperature 98. GENERAL DESCRIPTION: This is an elderly female, lying in bed, in no distress. RESPIRATORY SYSTEM: Unlabored breathing, decreased intensity of breath sounds. No wheeze. HEART: S1 and S2. Regular rhythm. ABDOMEN: Soft. No tenderness. EXTREMITIES: No edema in the feet. LABORATORY DATA: White count 5.86. Creatinine is normal. DIAGNOSTIC IMPRESSION AND PLAN: The patient with mental status changes and weakness, which is multifactorial. Did have positive concerning for a symptomatic urinary tract infection. The patient is covered with Rocephin to continue. We are awaiting for the culture to finalize. Daughter at the bedside. Questions were answered. MMODL / IJN: [id number] /
--- NOTE | 2024-05-05 12:46 | CONS ---
CONSULTATION LOCATION: 380. REASON FOR CONSULTATION: Urinary tract infection. HISTORY OF PRESENT ILLNESS: The patient is an 80-year-old female with a past medical history significant for dementia, CVA, atrial fibrillation. The [facility] is a [facility] resident. The patient has been brought in for evaluation of increasing weakness, lethargy, and decreased oral intake. No clear history of any high-grade fever or any chills. No clear history of any nausea or vomiting. No choking on the food as the patient is being fed by the family at the bedside. No vomiting, diarrhea, or any other changes have been reported with this. The patient has been evaluated. On presentation to the hospital, the patient was normothermic. Blood pressure was on the high side. Not hypoxic. The patient did have mildly elevated white count of 12.79 with a left shift. BUN and and creatinine have been mildly elevated as well. Did have a positive UA with large leukocyte esterase, 313 wbc with concerning for symptomatic urinary tract infection. The patient was started on Rocephin. Infectious Disease was consulted for further management of antibiotic therapy. Most information has been obtained from review of the chart and talking to nursing staff as the patient is currently lethargic, nonverbal, and cannot provide any history. REVIEW OF SYSTEMS: Positive points have been mentioned in HPI. Rest of the systems are negative. PAST MEDICAL HISTORY: Atrial fibrillation, dementia, UTI. PAST SURGICAL HISTORY: No major surgery. SOCIAL HISTORY: No history of smoking, drinking, or drug use. FAMILY HISTORY: No pertinent findings were noticed. ALLERGIES: To sulfa. MEDICATIONS: Currently, the patient is on: 1. Aspirin. 2. Vitamin D3. 3. Pepcid. 4. Lopressor. 5. Senna. 6. Rocephin 1 g q.12. 7. Lorazepam. 8. Tylenol. PHYSICAL EXAMINATION: VITAL SIGNS: Blood pressure is 122/70 with a pulse of 85, temperature 97.1. She is 99% on room air. GENERAL DESCRIPTION: This is an elderly female, lying in bed, in no distress. No tachypnea or accessory muscle of respiration use. HEENT: No pallor or scleral icterus. Oral mucous membranes are dry. NECK: Trachea is central. No thyromegaly. LUNGS: Unlabored breathing. Decreased breath sounds in the base. No wheeze. HEART: S1, S2. Regular rate and rhythm. ABDOMEN: Soft. No tenderness. No guarding or rigidity. EXTREMITIES: No edema in the feet. SKIN: No rashes. No mass palpable. NEUROLOGIC: The patient is awake, nonverbal. Orientation could not be determined. LABS: Hemoglobin is 12.79, creatinine is 1.73. Liver enzymes are normal. Urine is positive. DIAGNOSTIC IMPRESSION AND PLAN: 1. The patient presented to the hospital with mental status changes, likely multifactorial with a component of dehydration and likely component of urinary tract infection, likely from enteric gram-negative pathogen. 2. We will change Rocephin to 2 g IV piggyback daily. 3. Gentle IV fluid. 4. We will follow on clinical condition and culture to further adjust medication if needed. Family at the bedside. Questions have been answered. Thank you for this consultation. We will follow this patient along with you. MMTAMARAL / IJN: [id number] /
--- NOTE | 2024-05-05 12:46 | PN ---
PROGRESS NOTE DATE OF SERVICE: 03/27/2024 LOCATION: 470. REASON FOR FOLLOWUP: UTI. INTERVAL HISTORY: The patient is afebrile. The patient has mostly been lethargic today, and apparently, the patient was slightly agitated last night as reported by the daughter at the bedside. No clear history of any vomiting, diarrhea, or any other changes reported. The patient could not provide any history. PHYSICAL EXAMINATION: VITAL SIGNS: Blood pressure 134/74 with a pulse of 100, temperature 98.1. GENERAL DESCRIPTION: This is an elderly female, lying in bed, in no distress. RESPIRATORY SYSTEM: Unlabored breathing. Clear to auscultation anteriorly. HEART: S1, S2. Regular rate and rhythm. ABDOMEN: Soft, no tenderness. EXTREMITIES: No edema in feet. LABORATORY DATA: White count is 5.8. Creatinine 0.72. DIAGNOSTIC IMPRESSION AND PLAN: Patient with mental status change, multifactorial, possible component of urinary tract infection not at all excluded. The patient is on Rocephin. White count is normal. Further neurologic workup is in progress. Daughter at the bedside. Questions were answered. MMODL / IJN: [id number] /
--- NOTE | 2024-05-05 12:46 | PN ---
PROGRESS NOTE LOCATION: 380. REASON FOR FOLLOWUP: Urinary tract infection. INTERVAL HISTORY: The patient is afebrile. The patient is more awake and alert per the daughter at the bedside, and she was able to eat her meals without any choking. No nausea, vomiting, or diarrhea, or any other changes have been reported. PHYSICAL EXAMINATION: VITAL SIGNS: Blood pressure 126/75, pulse of 81, temperature 98.1. She is 100% on room air. GENERAL DESCRIPTION: This is an elderly female, lying in bed, in no distress. RESPIRATORY SYSTEM: Unlabored breathing. Clear to auscultation anteriorly. HEART: S1, S2. Regular rate and rhythm. ABDOMEN: Soft. No tenderness. EXTREMITIES: No edema in the feet. LABORATORY DATA: Creatinine 0.72. White count is 9.8. DIAGNOSTIC IMPRESSION AND PLAN: The patient with mental status changes, multifactorial, possible component of urinary tract infection. She has clinically responded to the Rocephin, to continue while waiting for the culture to finalize. Daughter at the bedside. Questions were answered. MMODL / IJN: [id number] /
--- NOTE | 2024-05-05 12:46 | PN ---
PROGRESS NOTE DATE OF SERVICE: 03/24/2024 REASON FOR FOLLOWUP: Urinary tract infection. INTERVAL HISTORY: The patient is afebrile. The patient is currently breathing comfortably on room air. The patient is slightly more awake per the daughter at the bedside and trying to communicate with her. No vomiting, diarrhea, any other changes reported. PHYSICAL EXAMINATION: VITAL SIGNS: Blood pressure 93/54, pulse of 67, temperature 97.9. She is 95% on room air. GENERAL DESCRIPTION: This is an elderly female lying in bed, in no distress. RESPIRATORY SYSTEM: Unlabored breathing. Clear to auscultation anteriorly. HEART: S1, S2. Regular rate and rhythm. ABDOMEN: Soft, no tenderness. EXTREMITIES: No edema of the feet. LABORATORY DATA: Creatinine 0.94, white count 6.9. Urine culture is currently pending. DIAGNOSTIC IMPRESSION AND PLAN: The patient with mental status changes, weakness, which is multifactorial, possible component of UTI. We are still waiting for urine culture to finalize. The patient is covered with Rocephin. Daughter at the bedside. Questions and concerns were answered. MMODL / IJN: [id number] /
--- NOTE | 2024-05-05 12:52 | PN ---
PROGRESS NOTE DATE OF SERVICE: 04/01/2024 LOCATION: [facility]. REASON FOR FOLLOWUP: Klebsiella urinary tract infection. INTERVAL HISTORY: The patient is afebrile. The patient is slightly more awake and alert per the daughter at the bedside and has been responding to the daughter. Oral intake remains to be poor, however, has been tolerating it. No choking on the food, vomiting or diarrhea has been reported. PHYSICAL EXAMINATION: VITAL SIGNS: Blood pressure 137/90 with a pulse of GENERAL DESCRIPTION: This is an elderly female, lying in bed, in no distress. RESPIRATORY SYSTEM: Unlabored breathing. Clear to auscultation anteriorly. HEART: S1, S2. Regular rate and rhythm. ABDOMEN: Soft. No tenderness. EXTREMITIES: No edema in feet. LABORATORY DATA: White count is DIAGNOSTIC IMPRESSION AND PLAN: The patient with mental status changes, multifactorial with a possible component of urinary tract infection, urine culture with Klebsiella, has received adequate antibiotic for the urinary tract infection. We will discontinue Rocephin and monitor the patient closely off antibiotic. Daughter is at the bedside. Questions were answered. MMODL / IJN: [id number] /
--- NOTE | 2024-05-05 12:52 | PN ---
PROGRESS NOTE DATE OF SERVICE: 03/30/2024 LOCATION: [facility]. REASON FOR FOLLOWUP: Urinary tract infection. INTERVAL HISTORY: The patient is afebrile. The patient is slightly more awake and alert per the daughter at the bedside. Has been responding to her and has been taking her food. No vomiting or choking on food. No abdominal pain or diarrhea has been reported. PHYSICAL EXAMINATION: VITAL SIGNS: Have been stable. GENERAL DESCRIPTION: An elderly female, lying in bed, in no distress. RESPIRATORY SYSTEM: Unlabored breathing, clear to auscultation anteriorly. HEART: S1, S2. Regular rate and rhythm. ABDOMEN: Soft, no tenderness. DIAGNOSTIC IMPRESSION AND PLAN: The patient with mental status changes, multifactorial, possible component of UTI, has been adequately treated. Cultures have been negative so far. Antibiotic can be safely discontinued. Daughter at the bedside. Questions and concerns answered as far as how to prevent recurrent UTI. MMODL / IJN: [id number] /
--- NOTE | 2024-05-05 12:52 | PN ---
PROGRESS NOTE DATE OF SERVICE: 03/29/2024 LOCATION: [facility]. REASON FOR FOLLOWUP: UTI. INTERVAL HISTORY: The patient is afebrile. The patient is sleepy today, not as awake and alert as compared to yesterday. However, she did wake up this morning and did have half of her meal as reported by the daughter at the bedside. No vomiting or diarrhea has been reported. PHYSICAL EXAMINATION: VITAL SIGNS: Blood pressure 110/59, pulse of 73, temperature 97.8. She is 95% on room air. GENERAL DESCRIPTION: The patient is an elderly female, lying in bed, in no distress. RESPIRATORY SYSTEM: Unlabored breathing. Clear to auscultation anteriorly. HEART: S1, S2. Regular rate and rhythm. ABDOMEN: Soft, no tenderness. LABORATORY DATA: No new labs on the chart. DIAGNOSTIC IMPRESSION AND PLAN: The patient was admitted to the hospital with mental status changes, multifactorial, possible component of UTI. She is on Rocephin, has received adequate antibiotic. Daughter at the bedside. Questions were answered. MMODL / IJN: [id number] /
--- NOTE | 2024-05-05 12:52 | PN ---
PROGRESS NOTE DATE OF SERVICE: 03/31/2024 LOCATION: [facility]. REASON FOR FOLLOWUP: Klebsiella urinary tract infection. INTERVAL HISTORY: The patient is afebrile. The patient is sleepy today, did not wake up and not as awake as yesterday, as reported by the daughter at the bedside. Oral intake remains to be poor. No vomiting, diarrhea, or any other changes have been reported. PHYSICAL EXAMINATION: VITAL SIGNS: Blood pressure is 91/56, pulse of 77, temperature 98, she is 92% on room air. GENERAL DESCRIPTION: This is an elderly female, lying in bed, in no distress. RESPIRATORY SYSTEM: Unlabored breathing. Decreased intensity of breath sounds. No wheeze. HEART: S1, S2. Regular rate and rhythm. ABDOMEN: Soft, no tenderness. EXTREMITIES: No edema in the feet. LABORATORY DATA: Creatinine 0.5, white count is 6.65. Urine culture with Klebsiella sensitive to ceftriaxone. DIAGNOSTIC IMPRESSION AND PLAN: Patient with Klebsiella urinary tract infection, adequately treated on Rocephin, which can be discontinued. No need for antibiotic on discharge. Daughter at the bedside. Questions were answered. MMODL / IJN: [id number] /
--- NOTE | 2024-05-19 14:02 | XR ---
Patient: Dinorah Aragon Ordering Physician: Unknown, Unknown ID: [id number] Phone, Pager: Phone: N/A Pager: N/A : [phone] Age/Gender: 88Y, F Primary Location: N/A Procedure: XR CHEST 1V Study Date: 03/28/2024 10:24:35 AM EXAMINATION TYPE: XR chest 1V portable DATE OF EXAM: 03/28/2024 HISTORY: Shortness of breath. COMPARISON: 03/21/2024 TECHNIQUE: Single view of the chest is submitted. FINDINGS: Demonstrated are scattered senescent parenchymal change. Basilar increased density could reflect the developing atelectasis and/or small effusions. The heart is stable. Hilar and mediastinal structures are within normal limits. Degenerative changes are seen of the dorsal spine. IMPRESSION: 1. Basilar increased density could reflect the developing atelectasis and/or small effusions. PICC line terminating in the superior cavoatrial junction. MTDD
--- NOTE | 2024-05-19 18:14 | CT ---
EXAMINATION TYPE: CT brain wo con CT DLP: 1227.4 mGycm, Automated exposure control for dose reduction was used. DATE OF EXAM: 03/21/2024 COMPARISON: Prior CT Brain 02/17/2024, 03/23/2024 CLINICAL INDICATION:Female, 88 years old with history of AMS, UNRESPONSIVE, TECHNIQUE: Brain: Multiple axial CT images of the brain were obtained without IV contrast. . Coronal and sagitta l reformats reviewed. Delayed interpretation due to institutional cyber tach. FINDINGS: Brain: Artifact limits evaluation. Extra-axial spaces: Right temporoparietal region curvilinear hyperattenuation within the sulci (serie s 203, image 23). This is site of artifact. Ventricular system: Dilatation in proportion to cerebral atrophy. Cerebral parenchyma: No acute intraparenchymal hemorrhage or mass effect. The gtz-white junction is well differentiated. Scattered hypoattenuating areas are seen within the periventricular white matte r. Nonspecific left basal glenoid calcifications. Cerebellum: Unremarkable. Mass effect: No evidence of midline shift. Intracranial vasculature: Atherosclerotic calcifications of the intracranial vessels. Soft tissues: Normal. Calvarium/osseous structures: No depressed skull fracture. Paranasal sinuses and mastoid air cells: Clear Visualized orbits: Bilateral aphakia Other: Debris identified within the right aspect of the oropharynx. IMPRESSION: 1. Questionable right temporoparietal region subarachnoid hemorrhage at site of artifact. No hemorrha ge identified in this region on follow-up CT 03/23/2024. Probable artifact. 2. Nonspecific white matter changes, likely secondary to chronic small vessel ischemic disease. [facility], , 05/19/2024 6:12 PM
== END 2024-04-12 12:35 | disposition hospice, home (50) | DRG 689 ==
LOC: 4SSUR → UNDOADMIN → 4SSUR 15:54 → UNDODISIN 04-12 12:35
PROVIDERS: ADMIT Family Medicine; ATTEND Family Medicine
PROC: 02HV33Z Insertion of Infusion Device into Superior Vena Cava, Percutaneous Approach (ICD-10-PCS; 2024-03-28)
PROC: B5181ZA Fluoroscopy of Superior Vena Cava using Low Osmolar Contrast, Guidance (ICD-10-PCS; 2024-03-28)
PROC: B548ZZA Ultrasonography of Superior Vena Cava, Guidance (ICD-10-PCS; 2024-03-28)
PROC: 3E0G76Z Introduction of Nutritional Substance into Upper GI, Via Natural or Artificial Opening (ICD-10-PCS; 2024-04-02)
PROC: 4A00X4Z Measurement of Central Nervous Electrical Activity, External Approach (ICD-10-PCS; 2024-04-03)
PROC: 3E0336Z Introduction of Nutritional Substance into Peripheral Vein, Percutaneous Approach (ICD-10-PCS; 2024-04-07)
PROC: 0DH63UZ Insertion of Feeding Device into Stomach, Percutaneous Approach (ICD-10-PCS; principal; 2024-04-07 07:30)
DX: N10 Acute pyelonephritis (principal); G92.8 Other toxic encephalopathy; F03.918 Unspecified dementia, unspecified severity, with other behavioral disturbance; L03.115 Cellulitis of right lower limb; E44.0 Moderate protein-calorie malnutrition; I48.20 Chronic atrial fibrillation, unspecified; Z68.1 Body mass index [BMI] 19.9 or less, adult; Z51.5 Encounter for palliative care; I12.9 Hypertensive chronic kidney disease with stage 1 through stage 4 chronic kidney disease, or unspecified chronic kidney disease; K21.9 Gastro-esophageal reflux disease without esophagitis; Z79.01 Long term (current) use of anticoagulants; Z91.148 Patient's other noncompliance with medication regimen for other reason; N18.9 Chronic kidney disease, unspecified; I49.5 Sick sinus syndrome; R62.7 Adult failure to thrive; E86.0 Dehydration; B96.1 Klebsiella pneumoniae [K. pneumoniae] as the cause of diseases classified elsewhere; K29.70 Gastritis, unspecified, without bleeding; K94.21 Gastrostomy hemorrhage; Z79.82 Long term (current) use of aspirin; Z90.710 Acquired absence of both cervix and uterus; Z82.5 Family history of asthma and other chronic lower respiratory diseases; Z88.2 Allergy status to sulfonamides; Z90.49 Acquired absence of other specified parts of digestive tract; Z98.42 Cataract extraction status, left eye; Z98.41 Cataract extraction status, right eye; Z86.73 Personal history of transient ischemic attack (TIA), and cerebral infarction without residual deficits
CPT/HCPCS: 36573; 43246; 70450; 70460; 71045; 80048; 80053; 82040; 82330; 83735; 84100; 84478; 85025; 85027; 85610; 86850; 86900; 86901; 87040; 93005; 93306; 95816; 96361; 96374; 99291